=== PATIENT | female | born 1980 | race Caucasian/White ===

== ENCOUNTER 2020-04-07 10:08 | Outpatient (REF) | payer OTHER, SELFPAY ==
[2020-04-07 10:26] LABS: COVID-19 Test Positive (Negative)
== END 2020-04-07 10:09 | disposition home or self-care (01) ==
LOC: HO.LAB 10:08
PROVIDERS: Visit Provider Internal Medicine
DX: Z20.828 Contact with and (suspected) exposure to other viral communicable diseases (principal)
CPT/HCPCS: 87635

== ENCOUNTER 2020-04-14 13:37 | Outpatient (REF) | payer OTHER, SELFPAY ==
[2020-04-14 13:46] LABS: COVID-19 Test Positive (Negative)
== END 2020-04-14 13:38 | disposition home or self-care (01) ==
LOC: HO.LAB 13:37
PROVIDERS: Visit Provider Internal Medicine
DX: Z20.828 Contact with and (suspected) exposure to other viral communicable diseases (principal)
CPT/HCPCS: 87635

== ENCOUNTER → 2021-01-25 13:48 | Outpatient (BNVA) | payer OTHER, SELFPAY | PROVIDERS: Referring Provider Internal Medicine; Visit Provider Advanced Practice Midwife ==

== ENCOUNTER 2021-03-21 08:20 | Outpatient (REF) | payer OTHER, SELFPAY ==
--- NOTE | ~2021-03-21 | MM_ITS ---
EXAMINATION: MM SCREENING DIGITAL BREAST TOMOSYNTHESIS, BILATERAL CLINICAL INFORMATION: Screening. Asymptomatic. The lifetime risk of breast cancer based on the Tyrer-Cuzick Model is 13%. COMPARISON: Mammography: 02/11/2020 (baseline) TECHNIQUE: Digital breast tomosynthesis is performed in both the craniocaudal and mediolateral oblique views along with computer-aided detection (CAD). Synthesized 2D images are generated from the tomosynthesis. Additional exaggerated left CC view is provided. FINDINGS: There are scattered areas of fibroglandular density (ACR BI-RADS breast composition Category b). Parenchymal pattern is similar to initial baseline exam. There is no interval significant mass or architectural abnormality or developing density. No abnormal calcifications. The axilla and skin contours are unremarkable. MM/MM tomosynthesis screening BI IMPRESSION: No significant changes from initial baseline exam. ASSESSMENT: BI-RADS 1: Negative RECOMMENDATION: Routine annual mammography screening. This patient's information was entered into a reminder system with a target due date for their next mammogram.
== END 2021-03-21 08:21 | disposition home or self-care (01) ==
LOC: HO.MAMMO 08:20
PROVIDERS: Visit Provider Advanced Practice Midwife
DX: Z12.31 Encounter for screening mammogram for malignant neoplasm of breast (principal)
CPT/HCPCS: 77063; 77067

== ENCOUNTER 2021-07-11 07:15 | Outpatient (REF) | payer OTHER, SELFPAY ==
[2021-07-11 09:26] LABS: MANUAL DIFF FLAG NO
[2021-07-11 09:59] LABS: Basophils Percent Auto 0.4 % (0-2); Eosinophils Absolute Auto 0.1 X10*3/uL (0.0-0.4); Hematocrit 39.4 % (37.0-47.0); Hemoglobin 13.2 g/dl (12.0-16.0); Imm Gran Abs Auto 0.02 X10*3/uL (0.00-0.03); Imm Gran Pct Auto 0.3 % (0.0-0.4); Lymphocytes Absolute Auto 2.6 X10*3/uL (1.2-4.9); Lymphocytes Percent Auto 32.7 % (20-40); Mean Corpuscular HGB Conc 33.5 g/dl (31.0-35.0); Mean Corpuscular Volume 89.5 fL (80.0-98.0); Mean Platelet Volume 12.7 fL (9.4-12.3); Monocytes Absolute Auto 0.6 X10*3/uL (0.1-1.2); Monocytes Percent Auto 7.2 % (2-11); Neutrophils Absolute Auto 4.7 x10*3/uL (2.0-8.3); Neutrophils Percent Auto 58.4 % (45-73); Platelet Count 191 X10*3/uL (160-400); Red Cell Distribution Width 11.5 % (11.0-16.0)
[2021-07-11 10:34] LABS: Alanine Aminotransferase 12 U/L (0-31); Albumin Level 4.4 g/dL (3.5-5.0); Alkaline Phosphatase 63 U/L (39-117); Anion Gap 11 (12-20); Aspartate Amino Transferase 13 U/L (5-31); Bilirubin Total 0.4 mg/dL (0.0-1.0); Blood Urea Nitrogen 12 mg/dL (9-16); Calcium 9.8 mg/dL (8.4-10.2); Carbon Dioxide 28 mmol/L (22-29); Chloride 105 mmol/L (96-108); Cholesterol 235 mg/dL; Estimated Glomerular Filt Rate > 60; Glucose Random 84 mg/dL (60-115); HDL Cholesterol 63 mg/dL; LDL Cholesterol Calculated 143 mg/dl; Potassium 4.5 mmol/L (3.3-5.1); Sodium 139 mmol/L (135-145); Total Protein 7.5 g/dL (6.5-8.0); Triglycerides 145 mg/dL
[2021-07-11 10:59] LABS: Thyroid Stimulating Hormone 0.73 uIU/mL (0.32-4.0)
== END 2021-07-11 07:16 | disposition home or self-care (01) ==
LOC: HO.LAB 07:15
PROVIDERS: Visit Provider Physician Assistant
DX: Z00.00 Encounter for general adult medical examination without abnormal findings (principal)
CPT/HCPCS: 36415; 80053; 80061; 84443; 85025

== ENCOUNTER → 2021-07-13 13:12 | Outpatient (BNVA) | payer OTHER, SELFPAY | PROVIDERS: PCP Physician Assistant; Referring Provider Physician Assistant; Visit Provider Internal Medicine | DX: R00.2 Palpitations (principal); U09.9 Post COVID-19 condition, unspecified | CPT/HCPCS: 93005 ==

== ENCOUNTER → 2021-08-31 07:30 | Outpatient (REF) | payer OTHER, SELFPAY ==
--- NOTE | 2021-08-31 07:35 | HM_ITS ---
conclusion: 1. Patient was monitored for total period of 6 days and 23 hours 2. Baseline was normal sinus rhythm with average heart of 77 beats per minute 3. No significant pauses or bradycardia 4. Two episodes of supraventricular ectopy run, longest 13 beats 5. Very rare PACs and PVCs 6. 2 of the patient reported event correlated with PVCs MTDD
--- NOTE | 2021-08-31 07:35 | CA_ITS ---
Transthoracic Echocardiogram Patient (Last, First, Middle): Sarah Brown, Gender: Female Date of : 1980 Age: 40 Procedure Date: 08/31/2021 Procedure Type: Transthoracic Echocardiogram Location: OP Height: 170.18 cm Weight: 90.72 kg BSA: 2.02 m2 Heart Rate: bpm BP: 120 / 70 mmHg Racecar Driver: DHARA Referring MD: Julio Madera MD Transformer Assembler: Stephan Torres MD Symptoms: R00.2 - Palpitations Study Quality: Good ECG Rhythm: Sinus Conclusions: - Normal study Findings Left Ventricle Normal left ventricular size, thickness, and systolic function. The visually estimated ejection fraction is between 65-70%. Diastolic function is normal for age. Measured global longitudinal endocardial strain is -23.8%, which is normal Right Ventricle Normal right ventricular cavity size and systolic function. Atria Both atria are normal in size. Interatrial shunt cannot be excluded. Aortic Valve Normal aortic valve structure and function. There is no aortic valve stenosis. There is no aortic valve regurgitation. Mitral Valve Normal mitral valve structure and function. There is trace mitral valve regurgitation. There is no mitral valve stenosis. Pulmonic Valve The pulmonic valve is likely normal. Tricuspid Valve Normal tricuspid valve structure. There is trace tricuspid valve regurgitation. The right ventricular systolic pressure is normal. The right ventricular systolic pressure is 26 mmHg. Normal right atrial pressure. There is no evidence of pulmonary hypertension. Great Vessels All visible segments of the aorta are normal in size. The pulmonary artery was not well visualized. Venous The inferior vena cava is normal in size and collapses greater than 50% with inspiration. Pericardium/Pleural There is no evidence of pericardial effusion. Prior Study Comparison No prior study available for comparison. Measurements 2D Linear Measurements IVSd: 0.91 0.6-0.9/0.6-1.0 cm LVIDd: 4.67 3.9-5.3/4.2-5.9 cm LVIDd Index: 2.31 2.4-3.2/2.2-3.1 cm/m2 LVIDs: 2.79 2.0-3.6 cm LVPWd: 0.98 0.7-1.1 cm LA Diam: 3.80 2.7-3.8/3.0-4.0 cm LAIDs Index: 1.88 1.5-2.3 cm/m2 LV Mass: 186.46 67-162/88-224 g LV Mass Index: 92.31 43-95/49-115 g/m2 LVOT Diam: 2.00 3.0+(-)1.3 cm 2D Systolic Function EF 4C: 62.00 >55% EF 2C: 65.80 >55% EF BiP: 64.60 >55% Mitral Valve MV Pk E: 0.90 MV PK A: 0.38 MV Decel Time: 220.00 E/A: 2.40 E'Lateral: 12.00 E'Medial: 10.10 E/E' Med: 8.90 E/E' Lat: 7.50 PHT: 65.00 MVA PHT: 3.38 Decel Bossier: 4.06 Aortic Valve AoV Pk Cliff: 1.55 AoV Pk Grad: 10.00 LVOT LVOT Pk Cliff: 1.19 LVOT Mn Cliff: 0.76 LVOT VTI: 0.28 LVOT Pk Grad: 6.00 LVOT Mn Grad: 3.00 LVOT Diam: 2.00 LVOT Area: 3.14 Diastolic Function MV Pk E: 0.90 MV Pk A: 0.38 E/A: 2.40 E'Medial: 10.10 E/E' Med: 8.90 E' Laterial: 12.00 E/E' Lat: 7.50 Right Ventricle TAPSE (mm): 2.13 TVS' Cliff: 16.30 Tricuspid Valve TR Pk Cliff: 2.39 TR Pk Grad: 23.00 RA Press: 3.00 RVSP: 26.00 Great Vessels Aorta Sinus of Valsalva: 2.79 2.0-3.5 cm Ao Asc: 2.60 2.1-3.4 cm Updated in Other Vendor System with Status of Final Stephan Torres MD electronically signed on 08/31/2021 9:50:33 PM with status of Final
== END ==
LOC: HO.CARD 07:30
PROVIDERS: Visit Provider Internal Medicine
DX: R00.2 Palpitations (principal); U09.9 Post COVID-19 condition, unspecified
CPT/HCPCS: 93242; 93306; 93356

== ENCOUNTER 2021-11-03 06:50 | Emergency (ER) | payer OTHER, SELFPAY ==
--- NOTE | ~2021-11-03 | US_ITS ---
EXAMINATION: US VENOUS ULTRASOUND WITH DOPPLER LOWER EXTREMITY, BILATERAL CLINICAL INFORMATION: Pain and swelling status post recent trip. COMPARISON: None TECHNIQUE: Ultrasound of the deep veins is performed from the hip to the calf with compression sonography and color and pulse Doppler assessment. Spectral analysis with color-flow imaging is performed. FINDINGS: RIGHT: There is normal venous compression and respiratory variation and augmented flow. The visualized common femoral vein, superficial femoral vein, profunda femoral vein, popliteal vein, and the trifurcation region shows no evidence of deep venous thrombosis. No right popliteal cyst. LEFT: There is normal venous compression and respiratory variation and augmented flow. The visualized common femoral vein, superficial femoral vein, profunda femoral vein, popliteal vein, and the trifurcation region shows no evidence of deep venous thrombosis. No left popliteal cyst. If the patient's symptoms persist, followup ultrasound in 5 days 7 days might be of value to exclude proximal propagation from a non-visualized calf vein. US/US venous duplex LE BI IMPRESSION: No DVT demonstrated in the bilateral lower extremity.
[2021-11-03 07:00] VITALS: BP 157/75; PULSE 100; RESP 20; O2SAT 100; BMI 30.4
--- NOTE | 2021-11-03 07:04 | ECG_ITS ---
Test Reason : leg swelling Blood Pressure : / mmHG Vent. Rate : 083 BPM Atrial Rate : 083 BPM P-R Int : 136 ms QRS Dur : 076 ms QT Int : 370 ms P-R-T Axes : 055 061 054 degrees QTc Int : 434 ms Normal sinus rhythm with sinus arrhythmia Minimal voltage criteria for LVH, may be normal variant ( Sokolow-Quan ) Nonspecific ST abnormality Abnormal ECG No previous ECGs available Referred By: Evangelina Levine Electronically Signed By:CHERRY WASHINGTON MD
--- NOTE | 2021-11-03 07:14 | ED.EXTPRO ---
HPI - Extremity Problem General Chief complaint: Extremity Problem Stated complaint: leg r swelling Time Seen by Provider: 11/03/21 07:04 Source: patient Mode of arrival: ambulatory Limitations: no limitations History of Present Illness HPI Narrative: just traveled from [place] is on OCPs c/o leg swelling and calf pain, felt they were red and itchy too. Also notes that she felt somewhat short of breath as well. MD Complaint: extremity swelling Onset (ago): day(s) (yesterday ) Pain Consistency: constant Location: left, right and lower extremity Quality: aching and dull Radiation: none Relieving factors: elevation Exacerbating factors: walking Associated symptoms: shortness of breath Context: recent travel and other (OCPs) Related Data Previous Rx's Medication Instructions Recorded norethindrone 1 mg-ethinyl 1 tab PO DAILY 28 Days #28 tab 01/25/21 estradiol 35 mcg tablet (Nortrel) prednisone 20 mg tablet 40 mg PO DAILY 5 Days #10 tab 11/03/21 Allergies Allergy/AdvReac Type Severity Reaction Status Date / Time No Known Allergies Allergy Unverified 03/10/20 17:00 [No Known Allergies*] Review of Systems Review of Systems: Constitutional : No Fever, No Chills ENT/Mouth : No sore throat, No Rhinorrhea, No Swallowing Difficulty Eyes: No Eye Pain, No Swelling, No Redness Cardiovascular : No Chest Pain, positive SOB, No Orthopnea, positive Edema Respiratory : No Cough, No Sputum, No Wheezing, positive dyspnea Gastrointestinal : No Nausea, No Vomiting, No Diarrhea, No abdominal Pain, No Hematochezia, No Melena Genitourinary : No Dysuria, No Urinary Frequency, No Hematuria Musculoskeletal : No joint pain, No Myalgias Skin : No Skin Lesions, pos rash Neuro : No Weakness, No Numbness, No Dizziness, No Headache Psych : No Anxiety/Panic, No Depression Heme/Lymph: No Bruising, No Lymphadenopathy Endocrine : No Polyuria, No Polydipsia All other systems reviewed and are negative [facility] Past Medical History Attestation statement: The following information was validated with the patient. Medical History Anal fissure Renal stones Surgical History History of section Family History Family History (Updated 07/13/21 @ 13:36 by ZORAN Colón) Father No problems noted. 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 Oriented X3. No acute distress. Eyes: Pupils equal, round and reactive to light. ENT: Pharynx normal. Neck: Normal inspection. Neck supple. CVS: Normal heart rate and rhythm. Pulses normal. Respiratory: No respiratory distress. Breath sounds normal. Abdomen: Soft and non-tender. Skin: Skin warm and dry. Normal skin color. small hyperpigmented non warmth prickly red areas on bilateral LE non confluent Extremities: non pitting lower extremity edema R> L . no ramya's sign Neuro: Oriented X 3. No motor deficit. No sensory deficit. Course Course Course Narrative: negative workup at this time stable for DC given intense itching that occurred could have been allergic reaction as well - will Rx prednisone in case this returns patient will get compression stockings too MDM - Extremity (Nontraumatic) MDM Narrative Medical decision making narrative: 40 yo female on OCPs here with c/o recent travel now feels her legs are swollen and were itchy and red. She also feels somewhat short of breath. At this time will obtain basic labs, EKG, DVT studies. Suspect initial VS likely due to reaction of anxiety. Lab Data Result diagrams: 11/03/21 07:32 11/03/21 07:32 Labs: Lab Results 11/03/21 11/03/21 11/03/21 Range/Units 07:32 07:32 07:32 WBC 6.8 (4.8-10.8) X10*3/uL RBC 4.25 (4.20-5.50) X10*6/uL Hgb 12.7 (12.0-16.0) g/dl Hct 37.4 (37.0-47.0) % MCV 88.0 (80.0-98.0) fL MCH 29.9 (27.0-33.0) pg MCHC 34.0 (31.0-35.0) g/dl RDW 12.1 (11.0-16.0) % Plt Count 161 (160-400) X10*3/uL MPV 12.0 (9.4-12.3) fL Immature Gran % (Auto) 0.1 (0.0-0.4) % Neut % (Auto) 72.2 (45-73) % Lymph % (Auto) 20.1 (20-40) % Garrard % (Auto) 6.6 (2-11) % Eos % (Auto) 0.7 (0-4) % Baso % (Auto) 0.3 (0-2) % Lymph # (Auto) 1.4 (1.2-4.9) X10*3/uL Garrard # (Auto) 0.5 (0.1-1.2) X10*3/uL Eos # (Auto) 0.1 (0.0-0.4) X10*3/uL Baso # (Auto) 0.0 (0.0-0.2) X10*3/uL Abs Immat Gran (auto) 0.01 (0.00-0.03) X10*3/uL Absolute Neuts (auto) 4.9 (2.0-8.3) x10*3/uL Absolute Nucleated RBC 0.000 (0.0-0.012) X10*3/uL Nucleated RBC % (auto) 0.0 (0.0-0.2) /100WBC PT (9.9-13.0) SEC INR (0.9-1.1) Sodium 137 (135-145) mmol/L Potassium 4.0 (3.3-5.1) mmol/L Chloride 106 (96-108) mmol/L Carbon Dioxide 24 (22-29) mmol/L Anion Gap 11 L (12-20) BUN 9 (9-16) mg/dL Creatinine 0.78 (0.5-1.4) mg/dL Estim Creat Clear Calc 111.8 Estimated GFR > 60 Random Glucose 102 (60-115) mg/dL Calcium 9.4 (8.4-10.2) mg/dL Total Bilirubin 0.4 (0.0-1.0) mg/dL Direct Bilirubin 0.2 (0.0-0.5) mg/dL AST 14 (5-31) U/L ALT 14 (0-31) U/L Alkaline Phosphatase 67 (39-117) U/L Troponin I High Sens < 3.5 (<3.5-17.0) ng/L B-Natriuretic Peptide 57 (<100) pg/mL Total Protein 7.1 (6.5-8.0) g/dL Albumin 4.0 (3.5-5.0) g/dL 11/03/21 Range/Units 07:32 WBC (4.8-10.8) X10*3/uL RBC (4.20-5.50) X10*6/uL Hgb (12.0-16.0) g/dl Hct (37.0-47.0) % MCV (80.0-98.0) fL MCH (27.0-33.0) pg MCHC (31.0-35.0) g/dl RDW (11.0-16.0) % Plt Count (160-400) X10*3/uL MPV (9.4-12.3) fL Immature Gran % (Auto) (0.0-0.4) % Neut % (Auto) (45-73) % Lymph % (Auto) (20-40) % Garrard % (Auto) (2-11) % Eos % (Auto) (0-4) % Baso % (Auto) (0-2) % Lymph # (Auto) (1.2-4.9) X10*3/uL Garrard # (Auto) (0.1-1.2) X10*3/uL Eos # (Auto) (0.0-0.4) X10*3/uL Baso # (Auto) (0.0-0.2) X10*3/uL Abs Immat Gran (auto) (0.00-0.03) X10*3/uL Absolute Neuts (auto) (2.0-8.3) x10*3/uL Absolute Nucleated RBC (0.0-0.012) X10*3/uL Nucleated RBC % (auto) (0.0-0.2) /100WBC PT 11.5 (9.9-13.0) SEC INR 1.0 (0.9-1.1) Sodium (135-145) mmol/L Potassium (3.3-5.1) mmol/L Chloride (96-108) mmol/L Carbon Dioxide (22-29) mmol/L Anion Gap (12-20) BUN (9-16) mg/dL Creatinine (0.5-1.4) mg/dL Estim Creat Clear Calc Estimated GFR Random Glucose (60-115) mg/dL Calcium (8.4-10.2) mg/dL Total Bilirubin (0.0-1.0) mg/dL Direct Bilirubin (0.0-0.5) mg/dL AST (5-31) U/L ALT (0-31) U/L Alkaline Phosphatase (39-117) U/L Troponin I High Sens (<3.5-17.0) ng/L B-Natriuretic Peptide (<100) pg/mL Total Protein (6.5-8.0) g/dL Albumin (3.5-5.0) g/dL ECG Data Attestation EKG: I personally reviewed and interpreted this ECG as follows: ECG interpretation date: 11/03/21 ECG interpretation time: 07:57 Interpretation: Rate: 83 Rhythm: NSR Warren: normal LVH Normal P waves. Normal TALI. Normal QRS complex. ST T wave : normal no TAMMY qTC: normal prior studies: no acute ischemia The study has been interpreted contemporaneously by me. Discharge Plan Discharge Clinical Impression: Lower extremity edema Patient Disposition: Home, Self-Care Instructions: Leg Edema (ED) Additional Instructions: return to ED for any worsening symptoms or concerns only take prednisone if the redness/itching returns compression stockings for 3 days Prescriptions: New prednisone 20 mg tablet 40 mg PO DAILY 5 Days Qty: 10 0RF No Action Nortrel () 1-35 mg-mcg tablet 1 tab PO DAILY 28 Days Qty: 28 11RF Stand Alone Forms: Work/School Release
[2021-11-03 07:36] LABS: MANUAL DIFF FLAG NO
[2021-11-03 07:39] LABS: Basophils Percent Auto 0.3 % (0-2); Eosinophils Absolute Auto 0.1 X10*3/uL (0.0-0.4); Eosinophils Percent Auto 0.7 % (0-4); Hematocrit 37.4 % (37.0-47.0); Hemoglobin 12.7 g/dl (12.0-16.0); Imm Gran Abs Auto 0.01 X10*3/uL (0.00-0.03); Imm Gran Pct Auto 0.1 % (0.0-0.4); Lymphocytes Absolute Auto 1.4 X10*3/uL (1.2-4.9); Lymphocytes Percent Auto 20.1 % (20-40); Mean Corpuscular Hemoglobin 29.9 pg (27.0-33.0); Monocytes Absolute Auto 0.5 X10*3/uL (0.1-1.2); Monocytes Percent Auto 6.6 % (2-11); Neutrophils Absolute Auto 4.9 x10*3/uL (2.0-8.3); Neutrophils Percent Auto 72.2 % (45-73); Platelet Count 161 X10*3/uL (160-400); Red Blood Count 4.25 X10*6/uL (4.20-5.50); Red Cell Distribution Width 12.1 % (11.0-16.0); White Blood Count 6.8 X10*3/uL (4.8-10.8)
[2021-11-03 07:43] LABS: Prothrombin Time 11.5 SEC (9.9-13.0)
[2021-11-03 07:52] LABS: Alanine Aminotransferase 14 U/L (0-31); Alkaline Phosphatase 67 U/L (39-117); Anion Gap 11 (12-20); Aspartate Amino Transferase 14 U/L (5-31); Bilirubin Direct 0.2 mg/dL (0.0-0.5); Bilirubin Total 0.4 mg/dL (0.0-1.0); Blood Urea Nitrogen 9 mg/dL (9-16); Calcium 9.4 mg/dL (8.4-10.2); Carbon Dioxide 24 mmol/L (22-29); Chloride 106 mmol/L (96-108); Creatinine Clr Calc Pharmacy 111.8; Estimated Glomerular Filt Rate > 60; Glucose Random 102 mg/dL (60-115); Sodium 137 mmol/L (135-145); Total Protein 7.1 g/dL (6.5-8.0)
[2021-11-03 07:57] LABS: B Type Natriuretic Peptide 57 pg/mL (<100); Troponin-I High Sensitivity < 3.5 ng/L (<3.5-17.0)
== END 2021-11-03 09:54 | disposition home or self-care (01) ==
PROVIDERS: Emergency Provider Emergency Medicine; PCP Physician Assistant
DX: R60.0 Localized edema (principal); M79.605 Pain in left leg; M79.604 Pain in right leg; R06.02 Shortness of breath
CPT/HCPCS: 36415; 80048; 80076; 83880; 84484; 85025; 85610; 93005; 93970; 99282; 99283; 99284

== ENCOUNTER 2022-01-29 09:40 | Outpatient (REF) | payer OTHER, SELFPAY ==
[2022-02-01 03:36] LABS: HPV mRNA E6/E7 rflx Not Detected (Not Detected)
== END 2022-01-29 09:41 | disposition home or self-care (01) ==
LOC: HO.LAB 09:40
PROVIDERS: Visit Provider Advanced Practice Midwife
DX: Z01.419 Encounter for gynecological examination (general) (routine) without abnormal findings (principal); Z11.51 Encounter for screening for human papillomavirus (HPV)
CPT/HCPCS: 87624; 88142

== ENCOUNTER 2022-03-22 10:01 | Outpatient (REF) | payer OTHER, SELFPAY ==
--- NOTE | ~2022-03-22 | MM_ITS ---
EXAMINATION: MM SCREENING DIGITAL BREAST TOMOSYNTHESIS, BILATERAL CLINICAL INFORMATION: Screening. Asymptomatic. The lifetime risk of breast cancer based on the Tyrer-Cuzick Model is 13%. COMPARISON: Mammography: 03/13/2021, 02/11/2020 (baseline) TECHNIQUE: Digital breast tomosynthesis is performed in both the craniocaudal and mediolateral oblique views along with computer-aided detection (CAD). Synthesized 2D images are generated from the tomosynthesis. FINDINGS: There are scattered areas of fibroglandular density (ACR BI-RADS breast composition Category b). The right CC view has smooth oval asymmetric density mid central inner quadrant under 9 x 5 mm, more conspicuous. This resides just inferior to posterior nipple line on the tomographic slices. Patient will be recalled for additional imaging. The remainder of the bilateral breasts show no developing density or interval mass or architectural abnormality or abnormal calcifications. The skin contours are smooth. MM/MM tomosynthesis screening BI IMPRESSION: Right: -Smooth oval asymmetric density mid central inner right breast under 1 cm. Left: -No mammographic evidence of malignancy. ASSESSMENT: BI-RADS 0: Incomplete - Need Additional Imaging Evaluation RECOMMENDATION: 1. Additional views of the right breast (rolled CC x2, LM). 2. Targeted ultrasound if warranted after review of the additional views. 3. Radiology department staff will contact the patient for additional imaging. This patient's information was entered into a reminder system with a target due date for their next mammogram.
== END 2022-03-22 10:02 | disposition home or self-care (01) ==
LOC: HO.MAMMO 10:01
PROVIDERS: Visit Provider Advanced Practice Midwife
DX: Z12.31 Encounter for screening mammogram for malignant neoplasm of breast (principal)
CPT/HCPCS: 77063; 77067

== ENCOUNTER 2022-03-29 14:47 | Outpatient (REF) | payer OTHER, SELFPAY ==
--- NOTE | ~2022-03-29 | US_ITS ---
EXAMINATION: MM DIAGNOSTIC DIGITAL MAMMOGRAPHY, RIGHT US DIAGNOSTIC ULTRASOUND BREAST, RIGHT CLINICAL INFORMATION: Recall from screening for smooth oval asymmetric density mid central inner right breast. The lifetime risk of breast cancer based on the Tyrer-Cuzick Model is 13%. COMPARISON: Mammography: 03/22/2022, 03/21/2021, 02/11/2020 (baseline). TECHNIQUE: Digital mammography is performed in the following views: Rolled CC x2, ML. Ultrasound right breast is targeted to the central inner breast using grayscale imaging and color Doppler without and with harmonics. FINDINGS: There are scattered areas of fibroglandular density (ACR BI-RADS breast composition Category b). The additional rolled views suggesting subtle equal attenuation oval asymmetric density, not seen with certainty on ML projection. No architectural abnormality. Ultrasound demonstrates 2 cysts central 3:00 position approximately 5 cm from nipple, the larger corresponding to the recent mammography measuring 8 x 4 mm, anechoic, with increased through-transmission of sound and no color flow. There is an adjacent satellite cyst measuring 5 x 3 mm. No solid mass or architectural abnormality. Results are discussed with the patient at time of visit. US/US breast RT limited IMPRESSION: -2 oval cysts central 3:00 right breast corresponding to recent screening mammography. ASSESSMENT: BI-RADS 2: Benign RECOMMENDATION: Routine annual mammography screening. This patient's information was entered into a reminder system with a target due date for their next mammogram.
== END 2022-03-29 14:48 | disposition home or self-care (01) ==
LOC: HO.MAMMO 14:47
PROVIDERS: Visit Provider Advanced Practice Midwife
DX: N64.89 Other specified disorders of breast (principal); N60.01 Solitary cyst of right breast
CPT/HCPCS: 76642; 77065

== ENCOUNTER 2022-09-10 08:10 | Outpatient (REF) | payer OTHER, SELFPAY ==
[2022-09-10 09:21] LABS: Hematocrit 39.6 % (37.0-47.0); Hemoglobin 13.4 g/dl (12.0-16.0); Mean Corpuscular HGB Conc 33.8 g/dl (31.0-35.0); Mean Corpuscular Hemoglobin 30.3 pg (27.0-33.0); Mean Corpuscular Volume 89.6 fL (80.0-98.0); Mean Platelet Volume 12.3 fL (9.4-12.3); Platelet Count 196 X10*3/uL (160-400); Red Blood Count 4.42 X10*6/uL (4.20-5.50); Red Cell Distribution Width 11.8 % (11.0-16.0)
[2022-09-10 10:37] LABS: Alanine Aminotransferase 13 U/L (0-31); Albumin Level 4.3 g/dL (3.5-5.0); Alkaline Phosphatase 72 U/L (39-117); Anion Gap 15 (12-20); Aspartate Amino Transferase 16 U/L (5-31); Bilirubin Total 0.6 mg/dL (0.0-1.0); Calcium 9.5 mg/dL (8.4-10.2); Carbon Dioxide 26 mmol/L (22-29); Chloride 103 mmol/L (96-108); Cholesterol 259 mg/dL; Estimated Glomerular Filt Rate > 60; Glucose Fasting 77 mg/dL (60-99); HDL Cholesterol 66 mg/dL; LDL Cholesterol Calculated 172 mg/dl; Potassium 4.3 mmol/L (3.3-5.1); Sodium 140 mmol/L (135-145); TSH reflex Free T4 0.77 uIU/mL (0.32-4.0); Total Protein 7.2 g/dL (6.5-8.0); Triglycerides 105 mg/dL
[2022-09-10 12:12] LABS: Blood Urea Nitrogen 11 mg/dL (9-16)
== END 2022-09-10 08:11 | disposition home or self-care (01) ==
LOC: HO.LAB 08:10
PROVIDERS: PCP Hospitalist; Visit Provider Hospitalist
DX: Z00.00 Encounter for general adult medical examination without abnormal findings (principal); E66.9 Obesity, unspecified; Z86.2 Personal history of diseases of the blood and blood-forming organs and certain disorders involving the immune mechanism
CPT/HCPCS: 36415; 80053; 80061; 84443; 85027

== ENCOUNTER 2022-09-11 07:24 | Outpatient (REF) | payer OTHER, SELFPAY ==
[2022-09-11 07:57] LABS: MANUAL DIFF FLAG NO
[2022-09-11 07:59] LABS: Basophils Absolute Auto 0.1 X10*3/uL (0.0-0.2); Basophils Percent Auto 0.3 % (0-2); Eosinophils Absolute Auto 0.1 X10*3/uL (0.0-0.4); Eosinophils Percent Auto 0.5 % (0-4); Hematocrit 38.9 % (37.0-47.0); Hemoglobin 13.1 g/dl (12.0-16.0); Imm Gran Abs Auto 0.11 X10*3/uL (0.00-0.03); Imm Gran Pct Auto 0.6 % (0.0-0.4); Lymphocytes Absolute Auto 1.9 X10*3/uL (1.2-4.9); Lymphocytes Percent Auto 10.3 % (20-40); Mean Corpuscular HGB Conc 33.7 g/dl (31.0-35.0); Mean Corpuscular Hemoglobin 30.1 pg (27.0-33.0); Mean Corpuscular Volume 89.4 fL (80.0-98.0); Mean Platelet Volume 11.8 fL (9.4-12.3); Monocytes Absolute Auto 0.7 X10*3/uL (0.1-1.2); Neutrophils Absolute Auto 15.5 x10*3/uL (2.0-8.3); Neutrophils Percent Auto 84.3 % (45-73); Platelet Count 189 X10*3/uL (160-400); Red Blood Count 4.35 X10*6/uL (4.20-5.50); Red Cell Distribution Width 11.9 % (11.0-16.0); White Blood Count 18.4 X10*3/uL (4.8-10.8)
== END 2022-09-11 07:25 | disposition home or self-care (01) ==
LOC: HO.LAB 07:24
PROVIDERS: PCP Hospitalist; Visit Provider Hospitalist
DX: D72.829 Elevated white blood cell count, unspecified (principal)
CPT/HCPCS: 36415; 85025

== ENCOUNTER 2022-09-11 09:16 | Emergency (ER) | payer OTHER, SELFPAY ==
--- NOTE | ~2022-09-11 | XR_ITS ---
EXAMINATION: XR CHEST CLINICAL INFORMATION: Fever COMPARISON: None available. TECHNIQUE: 2 views of the chest were obtained. FINDINGS: No significant abnormality is noted involving the heart, lungs, mediastinum, bony thorax or soft tissues. XR/XR chest 2V IMPRESSION: No acute cardiopulmonary process.
[2022-09-11 09:24] VITALS: BP 148/82; PULSE 81; RESP 16; TEMP 36.3; O2SAT 98; BMI 30.4
--- NOTE | 2022-09-11 10:09 | ED_ITS ---
HPI - General Adult General Chief complaint: General Medical Stated complaint: Abnormal Labs Time Seen by Provider: 09/11/22 09:19 Source: patient and RN notes reviewed Mode of arrival: ambulatory Limitations: no limitations History of Present Illness HPI narrative: This is a 41-year-old female who presents to the emergency department with complaints of intermittent nausea, intermittent shortness of breath, fatigue, low back pain and lower abdominal pain for the last week. She reports that she has just been feeling unwell over the last week. Patient was seen by her primary care physician yesterday for routine blood work for her yearly physical and had a WBC of 22,000. She had a repeat blood draw yesterday, and was told this morning that it is still elevated at 18,000. She reports that she woke up in the middle of the night drenched in sweat. She took an at home COVID test which was negative. She reports that her daughter is sick with a sore throat at home. She denies any known tick bites, she does not have dogs at home. She denies any fevers, chills, diarrhea, constipation, sore throat, runny nose, cough, headache, ear pain. Denies chest pain, palpitations. Denies urinary symptoms. MD complaint: Fatigue, abdominal pain Onset (ago): week(s) Radiation: abdomen Severity: moderate Quality: aching Pain Consistency: constant Relieving factors: none Exacerbating factors: none Associated symptoms: nausea/vomiting and shortness of breath Treatments prior to arrival: none Related Data Previous Rx's Medication Instructions Recorded norethindrone 1 mg-ethinyl 1 tab PO DAILY 84 days #168 tabs 01/29/22 estradiol 35 mcg tablet (Nortrel) Allergies Allergy/AdvReac Type Severity Reaction Status Date / Time No Known Allergies Allergy Verified 09/11/22 09:24 [No Known Allergies*] Review of Systems Review of Systems: Yes all other systems are reviewed and are negative Constitutional: Constitutional: Reports no additional constitutional complaints, Denies body ache(s), Denies chills, Reports fatigue, Denies fever(s), Denies headache(s), Reports lethargy, Reports night sweats and Denies weakness Eyes: Eyes: Reports no additional eye complaints and Denies change in vision ENT: Reports system reviewed and no additional complaints, except as documented, Denies dizziness, Denies headache(s), Denies nasal congestion, Denies nasal discharge and Denies neck pain Cardiovascular: Cardiovascular: Reports no additional cardiovascular complaints, Denies chest pain, Denies leg edema and Reports dyspnea Respiratory: Respiratory: Reports no additional respiratory complaints, Denies cough and Reports dyspnea Gastrointestinal: Gastrointestinal: Reports no additional gastrointestinal complaints, Reports abdominal pain, Denies diarrhea, Reports nausea and Denies vomiting Genitourinary: Genitourinary: Reports no additional female genitourinary complaints and Denies urinary incontinence Musculoskeletal: Musculoskeletal: Reports no additional musculoskeletal complaints, Reports back pain, Denies arthralgias, Denies joint swelling, Denies neck pain, Denies numbness and Denies tingling Integumentary/Breasts: Skin/Breast: Reports system reviewed and no additional complaints, except as docu and Denies rash Neurologic: Reports system reviewed and no additional complaints, except as documented, Denies dizziness, Denies headache(s), Denies numbness, Denies tingling and Denies weakness Endocrine: Endocrine: Reports fatigue PMFSH Past Medical History Attestation statement: The following information was validated with the patient. Source: old records reviewed and nursing notes reviewed Medical History Anal fissure Renal stones Surgical History History of section Family History Family History Father No problems noted. 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 Current occupational exposures/hazards: Yes Sexual orientation: Straight/Heterosexual Gender identity: Female Physical Exam ED Vital Signs: Vital Signs - 24 hr 09/11/22 09:24 03/21/23 11:27 Temperature 97.4 F 98.4 F Pulse Rate 81 79 Respiratory Rate 16 18 Blood Pressure 148/82 H 123/62 Pulse Oximetry 98 97 Oxygen Delivery Method Room Air Room Air BMI result Body Mass Index 30.4 Const General: cooperative, healthy appearing, comfortable, no acute distress, alert, awake and Physically active Nutritional Appearance: average body habitus Orientation/consciousness: oriented to person, oriented to place and oriented to time Limitations: no limitations [facility] Head: Yes normal to inspection, Yes normocephalic and Yes atraumatic Ears: hearing grossly normal bilaterally, external ears normal, TM's normal bilaterally and TM normal on the right General nose exam: Normal external nose present, No nasal polyps present and No nasal discharge present Face and sinus: Yes normal facial exam, Yes sinuses nontender and Yes face symmetric Mouth: Normal oral and palatal mucosa present and moist mucous membranes Teeth and gingiva: dentition normal and gingiva normal Throat: Yes posterior oropharynx normal, Yes tonsils normal, Yes uvula midline, No peritonsillar mass, No uvular edema and No cobblestoning Eyes General: appearance normal, both eyes and all related structures Alignment and Position: alignment normal and position normal Periorbital: periorbital findings normal Eyelids: Yes eyelids normal Conjunctivae: conjunctivae normal Sclerae: sclerae normal Corneas: corneas normal Pupils: Equal, round and reactive pupils present EOM: EOMs intact bilaterally Neck Neck: Yes normal visual inspection, Yes full ROM, Yes no lymphadenopathy, No no meningeal signs and Yes trachea midline Lymphatic: no lymphadenopathy noted Chest Chest palpation & inspection: normal inspection of the chest and normal palpation of entire chest wall Breast/axilla palpation: axillary lymphadenopathy Resp Effort & Inspection: normal respiratory effort, able to speak in complete sentences, no audible wheezes and no cough Auscultation: clear to auscultation bilaterally, no rales, no rhonchi and no wheezes Cardio Rate: regular rate Rhythm: regular rhythm Heart sounds: S1 normal heart sound present, S2 normal heart sound present, no g allops, no murmurs and no rubs GI Other: Abdomen is soft, nontender, with normoactive bowel sounds, Inspection: Yes normal to inspection and No distended Palpation (GI): Soft to palpation, nontender, no guarding, not rigid, no hepatosplenomegaly and No Ascites present Auscultation: normal bowel sounds General: Yes no CVA tenderness Back/Spine/Pelvis Back: no CVA tenderness, No ecchymosis and No back tenderness Thoracic/Lumbar Spine: thoracic and lumbar spine normal to inspection Skin General skin exam: no rashes or lesions noted Wounds: no wounds Neuro General: oriented to person, oriented to place, oriented to time and No no meningeal signs Cranial nerves: Yes Equal, round and reactive pupils present Extrem General: Yes normal to inspection, Yes full ROM, Yes capillary refill normal, Yes no pedal edema and Yes no calf tenderness Psych Appearance: grossly normal Mental Status: mental status grossly normal Speech and movement: Normal speech and movement present Affect: normal affect Attitude: cooperative Thought process: Normal thought process present Thought content: Normal thought content present Insight: Good insight present (Psych) Judgement: Good judgement present (Psych) Course Reevaluation(s) Reevaluation #1: Leukocytosis at 17.7 with slight left shift which is downtrending. UA with 3+ blood, patient report that she has her period at this time. Viral panel and tick panels still pending. Additional w/u unremarkable. Patient non toxic, afebrile here, appears well. Recommend follow w/ PCP outpatient. Reviewed worrisome signs and symptoms of when to return to the emergency room. Comfortable plan for discharge home. Time: 12:04 Medical Decision Making Medical Decision Making [facility] Narrative: 41 yo F presents today with complaints of fatigue, back pain, low abdominal pain, nausea, 1 episode of night sweats, found to have an elevated WBC at 22k at PCP's office. She reported to her PCP office for routine physical lab work and incidentally found this. She reports that over the last week she has had multiple, vague complaints that are intermittent. LS are clear. Abdomen soft and nontender with no focal tenderness. No meningeal signs or lymphadenopathy. Overall non toxic appearing. VSS are stable. Labs, EKG, Chest x-ray, and UA ordered. Differential Diagnosis Differential Diagnoses: The differential diagnosis associated with the presentation includes UTI, Pneumonia, viral syndrome, tick-borne illness Low concern for bacteremia, meningitis Lab Data [facility] Lab Attestation statement: I reviewed the patient's lab results. 09/11/22 10:10 09/11/22 10:10 Labs: Lab Results 09/11/22 09/11/22 09/11/22 Range/Units 10:09 10:10 10:10 WBC 17.7 H (4.8-10.8) X10*3/uL RBC 4.19 L (4.20-5.50) X10*6/uL Hgb 12.5 (12.0-16.0) g/dl Hct 37.5 (37.0-47.0) % MCV 89.5 (80.0-98.0) fL MCH 29.8 (27.0-33.0) pg MCHC 33.3 (31.0-35.0) g/dl RDW 11.9 (11.0-16.0) % Plt Count 179 (160-400) X10*3/uL MPV 11.6 (9.4-12.3) fL Immature Gran % (Auto) 0.4 (0.0-0.4) % Neut % (Auto) 84.1 H (45-73) % Lymph % (Auto) 11.2 L (20-40) % [place] % (Auto) 3.8 (2-11) % Eos % (Auto) 0.3 (0-4) % Baso % (Auto) 0.2 (0-2) % Lymph # (Auto) 2.0 (1.2-4.9) X10*3/uL [place] # (Auto) 0.7 (0.1-1.2) X10*3/uL Eos # (Auto) 0.1 (0.0-0.4) X10*3/uL Baso # (Auto) 0.0 (0.0-0.2) X10*3/uL Abs Immat Gran (auto) 0.07 H (0.00-0.03) X10*3/uL Absolute Neuts (auto) 14.9 H (2.0-8.3) x10*3/uL Absolute Nucleated RBC 0.000 (0.0-0.012) X10*3/uL Nucleated RBC % (auto) 0.0 (0.0-0.2) /100WBC Sodium 139 (135-145) mmol/L Potassium 3.9 (3.3-5.1) mmol/L Chloride 107 (96-108) mmol/L Carbon Dioxide 24 (22-29) mmol/L Anion Gap 12 (12-20) BUN 8 L (9-16) mg/dL Creatinine 0.74 (0.5-1.4) mg/dL Estim Creat Clear Calc 116.6 Estimated GFR > 60 Random Glucose 87 (60-115) mg/dL Lactic Acid 0.7 (0.5-2.0) mmol/L Calcium 8.9 D (8.4-10.2) mg/dL Magnesium 2.0 (1.6-2.6) mg/dL Total Bilirubin 0.4 (0.0-1.0) mg/dL Direct Bilirubin < 0.2 (0.0-0.5) mg/dL AST 12 (5-31) U/L ALT 11 (0-31) U/L Alkaline Phosphatase 71 (39-117) U/L Total Protein 6.8 (6.5-8.0) g/dL Albumin 4.1 (3.5-5.0) g/dL TSH 1.13 (0.32-4.0) uIU/mL Urine Color Urine Appearance Urine pH (5.0-9.0) Ur Specific [place] (1.005-1.025) Urine Protein (Neg-Trace) mg/dL Urine Glucose (UA) (Negative) mg/dL Urine Ketones (Negative) mg/dL Urine Blood (Negative) Urine Nitrite (Negative) Ur Leukocyte Esterase (Negative) Urine RBC (0-2) /HPF Urine WBC (0-5) /HPF Ur Squamous Epith Cells (0-2) /HPF Urine Bacteria (None Seen) Hyaline Casts (0-2) /LPF Urine Test (NEGATIVE) Monoscreen (Negative) 09/11/22 09/11/22 09/11/22 Range/Units 10:10 10:45 10:45 WBC (4.8-10.8) X10*3/uL RBC (4.20-5.50) X10*6/uL Hgb (12.0-16.0) g/dl Hct (37.0-47.0) % MCV (80.0-98.0) fL MCH (27.0-33.0) pg MCHC (31.0-35.0) g/dl RDW (11.0-16.0) % Plt Count (160-400) X10*3/uL MPV (9.4-12.3) fL Immature Gran % (Auto) (0.0-0.4) % Neut % (Auto) (45-73) % Lymph % (Auto) (20-40) % [place] % (Auto) (2-11) % Eos % (Auto) (0-4) % Baso % (Auto) (0-2) % Lymph # (Auto) (1.2-4.9) X10*3/uL [place] # (Auto) (0.1-1.2) X10*3/uL Eos # (Auto) (0.0-0.4) X10*3/uL Baso # (Auto) (0.0-0.2) X10*3/uL Abs Immat Gran (auto) (0.00-0.03) X10*3/uL Absolute Neuts (auto) (2.0-8.3) x10*3/uL Absolute Nucleated RBC (0.0-0.012) X10*3/uL Nucleated RBC % (auto) (0.0-0.2) /100WBC Sodium (135-145) mmol/L Potassium (3.3-5.1) mmol/L Chloride (96-108) mmol/L Carbon Dioxide (22-29) mmol/L Anion Gap (12-20) BUN (9-16) mg/dL Creatinine (0.5-1.4) mg/dL Estim Creat Clear Calc Estimated GFR Random Glucose (60-115) mg/dL Lactic Acid (0.5-2.0) mmol/L Calcium (8.4-10.2) mg/dL Magnesium (1.6-2.6) mg/dL Total Bilirubin (0.0-1.0) mg/dL Direct Bilirubin (0.0-0.5) mg/dL AST (5-31) U/L ALT (0-31) U/L Alkaline Phosphatase (39-117) U/L Total Protein (6.5-8.0) g/dL Albumin (3.5-5.0) g/dL TSH (0.32-4.0) uIU/mL Urine Color Yellow Urine Appearance Clear Urine pH 6.0 (5.0-9.0) Ur Specific [place] 1.015 (1.005-1.025) Urine Protein Negative (Neg-Trace) mg/dL Urine Glucose (UA) Negative (Negative) mg/dL Urine Ketones Negative (Negative) mg/dL Urine Blood Large (3+) H (Negative) Urine Nitrite Negative (Negative) Ur Leukocyte Esterase Negative (Negative) Urine RBC 6-10 H (0-2) /HPF Urine WBC 0-5 (0-5) /HPF Ur Squamous Epith Cells 0-2 (0-2) /HPF Urine Bacteria None Seen (None Seen) Hyaline Casts 0-2 (0-2) /LPF Urine Test NEGATIVE (NEGATIVE) Monoscreen Negative (Negative) Independent Interpretation I performed an independent interpretation of an: Plain X-Ray Interpretation: I personally reviewed the chest x-ray and agree with radiologist findings. Radiology Impression Discussion of test interpretation with radiology: I have reviewed the radiologist's reading. Radiologist Impression: EXAMINATION: XR CHEST CLINICAL INFORMATION: Fever COMPARISON: None available. TECHNIQUE: 2 views of the chest were obtained. FINDINGS: No significant abnormality is noted involving the heart, lungs, mediastinum, bony thorax or soft tissues. XR/XR chest 2V IMPRESSION: No acute cardiopulmonary process. Discharge Plan Discharge Clinical Impression: Leukocytosis Patient Disposition: Home, Self-Care Instructions: Leukocytosis (ED) Additional Instructions: Your tick panel and respiratory panel are pending Please return for worsening symptoms Prescriptions: No Action Nortrel 135 (28) 1-35 mg-mcg tablet 1 tab PO DAILY 84 Days Qty: 168 3RF Referrals: Umm Chan NP [Primary Care Provider] - 1 week Interventions: ED Discharge Assessment Last Done: 09/11/22 12:04 Discharge Date/Time: 09/11/22 12:04
--- NOTE | 2022-09-11 10:13 | PC.NURSE ---
Addendum entered by Margaret Nguyen RN 09/11/22 10:14: pt aware we need a urine Original Note: patient a&ox3, iv inserted, labs drawn, xray performed, 1st set of blood cultures drawn, nose swab and second set of cultures to be performed by calos, call clements within reach, will continue to monitor.
[2022-09-11 10:15] LABS: MANUAL DIFF FLAG NO
[2022-09-11 10:17] LABS: Basophils Percent Auto 0.2 % (0-2); Eosinophils Absolute Auto 0.1 X10*3/uL (0.0-0.4); Eosinophils Percent Auto 0.3 % (0-4); Hematocrit 37.5 % (37.0-47.0); Hemoglobin 12.5 g/dl (12.0-16.0); Imm Gran Abs Auto 0.07 X10*3/uL (0.00-0.03); Imm Gran Pct Auto 0.4 % (0.0-0.4); Lymphocytes Percent Auto 11.2 % (20-40); Mean Corpuscular HGB Conc 33.3 g/dl (31.0-35.0); Mean Corpuscular Hemoglobin 29.8 pg (27.0-33.0); Mean Corpuscular Volume 89.5 fL (80.0-98.0); Mean Platelet Volume 11.6 fL (9.4-12.3); Monocytes Absolute Auto 0.7 X10*3/uL (0.1-1.2); Monocytes Percent Auto 3.8 % (2-11); Neutrophils Absolute Auto 14.9 x10*3/uL (2.0-8.3); Neutrophils Percent Auto 84.1 % (45-73); Platelet Count 179 X10*3/uL (160-400); Red Blood Count 4.19 X10*6/uL (4.20-5.50); Red Cell Distribution Width 11.9 % (11.0-16.0); White Blood Count 17.7 X10*3/uL (4.8-10.8)
[2022-09-11 10:35] LABS: Lactic Acid 0.7 mmol/L (0.5-2.0)
[2022-09-11 10:41] LABS: Alanine Aminotransferase 11 U/L (0-31); Albumin Level 4.1 g/dL (3.5-5.0); Alkaline Phosphatase 71 U/L (39-117); Anion Gap 12 (12-20); Aspartate Amino Transferase 12 U/L (5-31); Bilirubin Direct < 0.2 mg/dL (0.0-0.5); Bilirubin Total 0.4 mg/dL (0.0-1.0); Blood Urea Nitrogen 8 mg/dL (9-16); Calcium 8.9 mg/dL (8.4-10.2); Carbon Dioxide 24 mmol/L (22-29); Chloride 107 mmol/L (96-108); Creatinine Clr Calc Pharmacy 116.6; Estimated Glomerular Filt Rate > 60; Glucose Random 87 mg/dL (60-115); Potassium 3.9 mmol/L (3.3-5.1); Sodium 139 mmol/L (135-145); Total Protein 6.8 g/dL (6.5-8.0)
[2022-09-11 10:54] LABS: Urine Pregnancy NEGATIVE (NEGATIVE)
[2022-09-11 10:55] LABS: Appearance Urine Clear; Color Urine Yellow; Glucose Urine UA Negative (Negative); Leukocyte Esterase Urine Negative (Negative); Nitrite Urine Negative (Negative); Specific Gravity - Urine 1.015 (1.005-1.025); UMIC TRIGGER UACC YES; UPreg QC Valid YES; Urine Blood Large (3+) (Negative); Urine Ketones Negative (Negative); Urine Protein Negative (Neg-Trace)
[2022-09-11 10:58] LABS: Bacteria Urine None Seen (None Seen); Hyaline Casts Urine 0-2 /LPF (0-2); Squamous Epithelial Cell Urine 0-2 /HPF (0-2); WBC Urine 0-5 /HPF (0-5)
[2022-09-11 11:07] LABS: Monotest Negative (Negative)
[2022-09-11 11:27] VITALS: BP 123/62; PULSE 79; RESP 18; TEMP 36.9; O2SAT 97
[2022-09-11 11:46] LABS: TSH reflex Free T4 1.13 uIU/mL (0.32-4.0)
[2022-09-11 14:34] LABS: Adenovirus PCR Not Detected (Not Detect.); Bordetella parapertussis PCR Not Detected (Not Detect.); Bordetella pertussis PCR Not Detected (Not Detect.); Chlamydia pneumoniae PCR Not Detected (Not Detect.); Coronavirus 229E PCR Not Detected (Not Detect.); Coronavirus HKU1 PCR Not Detected (Not Detect.); Coronavirus NL63 PCR Not Detected (Not Detect.); Coronavirus OC43 PCR Not Detected (Not Detect.); Human metapneumovirus PCR Not Detected (Not Detect.); Influenza A PCR Not Detected (Not Detect.); Influenza B PCR Not Detected (Not Detect.); Mycoplasma pneumoniae PCR Not Detected (Not Detect.); Parainfluenza 1 PCR Not Detected (Not Detect.); Parainfluenza 2 PCR Not Detected (Not Detect.); Parainfluenza 3 PCR Not Detected (Not Detect.); Parainfluenza 4 PCR Not Detected (Not Detect.); RSV PCR Not Detected (Not Detect.); Rhino/Enterovirus PCR Not Detected (Not Detect.); SARS-CoV-2 PCR Not Detected (Not Detect.)
[2022-09-13 13:23] LABS: Lyme Abs Screen <0.90 index
[2022-09-18 15:48] LABS: Babesia IgG <1:64 titer (<1:64); Babesia IgM <1:20 titer (<1:20)
[2022-09-19 10:59] LABS: A. Phagocytophilum Ab IgG <1:64 (<1:64); A. Phagocytophilum Ab IgM <1:20 (<1:20); E. Chaffeensis Ab IgG <1:64 (<1:64); E. Chaffeensis Ab IgM <1:20 (<1:20)
== END 2022-09-11 12:04 | disposition home or self-care (01) ==
PROVIDERS: Nurse Practitioner Family; Emergency Provider Emergency Medicine; PCP Hospitalist
DX: R79.89 Other specified abnormal findings of blood chemistry (principal); R06.02 Shortness of breath; R50.9 Fever, unspecified; D72.829 Elevated white blood cell count, unspecified; M54.50 Low back pain, unspecified; Z79.899 Other long term (current) drug therapy
CPT/HCPCS: 36415; 71046; 80048; 80076; 81001; 81025; 83605; 83735; 84443; 85025; 86308; 86617; 86618; 86666; 86753; 87040; 87633; 99283; 99284

== ENCOUNTER 2022-09-13 13:00 | Outpatient (REF) | payer OTHER, SELFPAY ==
[2022-09-13 13:10] LABS: MANUAL DIFF FLAG NO
[2022-09-13 14:08] LABS: Basophils Percent Auto 0.2 % (0-2); Eosinophils Absolute Auto 0.1 X10*3/uL (0.0-0.4); Eosinophils Percent Auto 0.4 % (0-4); Hematocrit 36.6 % (37.0-47.0); Hemoglobin 12.3 g/dl (12.0-16.0); Imm Gran Abs Auto 0.09 X10*3/uL (0.00-0.03); Imm Gran Pct Auto 0.5 % (0.0-0.4); Lymphocytes Absolute Auto 2.5 X10*3/uL (1.2-4.9); Mean Corpuscular HGB Conc 33.6 g/dl (31.0-35.0); Mean Corpuscular Hemoglobin 30.5 pg (27.0-33.0); Mean Corpuscular Volume 90.8 fL (80.0-98.0); Mean Platelet Volume 12.8 fL (9.4-12.3); Monocytes Absolute Auto 0.9 X10*3/uL (0.1-1.2); Monocytes Percent Auto 4.7 % (2-11); Neutrophils Absolute Auto 14.5 x10*3/uL (2.0-8.3); Neutrophils Percent Auto 80.2 % (45-73); Platelet Count 205 X10*3/uL (160-400); Red Blood Count 4.03 X10*6/uL (4.20-5.50); Red Cell Distribution Width 11.9 % (11.0-16.0); White Blood Count 18.1 X10*3/uL (4.8-10.8)
== END 2022-09-13 13:01 | disposition home or self-care (01) ==
LOC: HO.LAB 13:00
PROVIDERS: PCP Hospitalist; Visit Provider Hospitalist
DX: D72.829 Elevated white blood cell count, unspecified (principal)
CPT/HCPCS: 36415; 85025

== ENCOUNTER 2022-09-14 08:27 | Outpatient (REF) | payer OTHER, SELFPAY ==
[2022-09-14 08:58] LABS: MANUAL DIFF FLAG NO
[2022-09-14 09:03] LABS: Basophils Percent Auto 0.3 % (0-2); Eosinophils Absolute Auto 0.1 X10*3/uL (0.0-0.4); Eosinophils Percent Auto 0.6 % (0-4); Hemoglobin 13.8 g/dl (12.0-16.0); Imm Gran Abs Auto 0.03 X10*3/uL (0.00-0.03); Imm Gran Pct Auto 0.3 % (0.0-0.4); Lymphocytes Absolute Auto 1.8 X10*3/uL (1.2-4.9); Lymphocytes Percent Auto 16.8 % (20-40); Mean Corpuscular HGB Conc 34.5 g/dl (31.0-35.0); Mean Corpuscular Hemoglobin 30.1 pg (27.0-33.0); Mean Corpuscular Volume 87.1 fL (80.0-98.0); Mean Platelet Volume 12.1 fL (9.4-12.3); Monocytes Absolute Auto 0.5 X10*3/uL (0.1-1.2); Monocytes Percent Auto 4.6 % (2-11); Neutrophils Absolute Auto 8.1 x10*3/uL (2.0-8.3); Neutrophils Percent Auto 77.4 % (45-73); Platelet Count 198 X10*3/uL (160-400); Red Blood Count 4.59 X10*6/uL (4.20-5.50); Red Cell Distribution Width 11.8 % (11.0-16.0); White Blood Count 10.5 X10*3/uL (4.8-10.8)
[2022-09-14 09:16] LABS: Anion Gap 17 (12-20); Blood Urea Nitrogen 9 mg/dL (9-16); Calcium 9.7 mg/dL (8.4-10.2); Carbon Dioxide 22 mmol/L (22-29); Chloride 106 mmol/L (96-108); Estimated Glomerular Filt Rate > 60; Glucose Random 96 mg/dL (60-115); Potassium 4.4 mmol/L (3.3-5.1); Sodium 141 mmol/L (135-145)
== END 2022-09-14 08:28 | disposition home or self-care (01) ==
LOC: HO.LAB 08:27
PROVIDERS: PCP Hospitalist; Visit Provider Physician Assistant
DX: R11.0 Nausea (principal)
CPT/HCPCS: 36415; 80048; 85025

== ENCOUNTER 2022-09-14 08:40 | Outpatient (REF) | payer OTHER, SELFPAY ==
--- NOTE | ~2022-09-14 | CT_ITS ---
EXAMINATION: CT chest, abdomen and pelvis with IV contrast. CLINICAL INDICATIONS: Nausea, diarrhea and leukocytosis. COMPARISON: None. TECHNIQUE: 5 mm thin axial and reformatted 3 mm thin sagittal coronal images of chest, abdomen and pelvis were obtained following IV 85 mL Omnipaque 350. DLP 955. This CT examination was performed using dose optimization technique as appropriate, variously including the following: Automated exposure control Adjustment of MA and/or KV according to patient size(this includes techniques or standardized protocols for targeted exams where dose is matched to indication/reason for exam; extremities or head. Use of iterative reconstruction techniques. FINDINGS: CHEST: LUNGS: The lungs are well-expanded and clear of acute pneumonic process. There are no pulmonary nodules, masses or groundglass density. Minimal atelectatic changes are seen in the right middle lobe medially. Mediastinum: Right thyroid gland is normal. The left thyroid lobe is removed or atrophic. The central trachea and the bronchi are widely patent. Heart size and the great vessels are normal caliber. There is residual anterior mediastinal thymic soft tissue density. No abnormal size mediastinal or hilar lymph nodes seen. No pericardial effusion. No coronary artery calcifications present. Pleura: There is no pleural effusion, thickening or atelectasis. Axilla: No abnormal axillary lymph nodes. The chest wall is unremarkable. Osseous structures: No aggressive lytic or sclerotic process seen. ABDOMEN AND PELVIS: Liver: The liver is homogeneous in density, normal size and contour. There is 5 mm hypodensity right hepatic lobe probable small cyst. No additional lesions seen. There is no intrahepatic ductal dilatation. No focal lesion or intrahepatic ductal dilatation seen. The gallbladder appears unremarkable. Spleen: Unremarkable. There is a small accessory splenule inferior tip. Pancreas: Unremarkable. Adrenal glands: Unremarkable. Kidneys and ureters: Both kidney nephrograms are symmetrical in size, position and cortical thickness. No radiopaque renal calculi or hydroureteronephrosis seen. No perinephric stranding. Lymphovascular structures: The abdominal aorta is of normal caliber. No retroperitoneal lymph nodes seen. GI tract: The stomach is normal and nondistended. No hiatal hernia. The small bowel loops are normal caliber. There is scattered stool in the colon without distention. The small bowel loops. Appendix is not seen. Abdominal wall: Small lacunar hernia containing fat. Pelvis: There is a small right ovarian simple cyst measuring 3.1 x 3.1 cm and 13 Hounsfield units. No abnormal lesion or free fluid seen. Osseous structures: There is no aggressive lytic or sclerotic process seen. CT/CT abdomen pelvis w IV con IMPRESSION: 1. Unremarkable CT chest exam. 2. No acute process seen in the abdomen. 3. Mild constipation without obstruction. 4. Right ovarian simple cyst. 5. Small umbilical hernia containing fat.
[2022-09-14] MEDS: iohexoL 350 MG/ML 100 ML INFUS..BTL IV (09:43)
== END 2022-09-14 08:41 | disposition home or self-care (01) ==
LOC: HO.CT 08:40
PROVIDERS: Visit Provider Physician Assistant
DX: R11.0 Nausea (principal); R19.7 Diarrhea, unspecified; D72.829 Elevated white blood cell count, unspecified
CPT/HCPCS: 71260; 74177; Q9967

== ENCOUNTER 2022-09-20 08:28 | Outpatient (REF) | payer OTHER, SELFPAY ==
[2022-09-20 08:36] LABS: MANUAL DIFF FLAG NO
[2022-09-20 09:32] LABS: Basophils Percent Auto 0.4 % (0-2); Eosinophils Absolute Auto 0.1 X10*3/uL (0.0-0.4); Eosinophils Percent Auto 1.9 % (0-4); Hematocrit 39.9 % (37.0-47.0); Hemoglobin 13.3 g/dl (12.0-16.0); Imm Gran Abs Auto 0.02 X10*3/uL (0.00-0.03); Imm Gran Pct Auto 0.3 % (0.0-0.4); Lymphocytes Absolute Auto 2.2 X10*3/uL (1.2-4.9); Lymphocytes Percent Auto 30.6 % (20-40); Mean Corpuscular HGB Conc 33.3 g/dl (31.0-35.0); Mean Corpuscular Hemoglobin 29.8 pg (27.0-33.0); Mean Corpuscular Volume 89.3 fL (80.0-98.0); Mean Platelet Volume 12.6 fL (9.4-12.3); Monocytes Absolute Auto 0.5 X10*3/uL (0.1-1.2); Monocytes Percent Auto 7.1 % (2-11); Neutrophils Absolute Auto 4.4 x10*3/uL (2.0-8.3); Neutrophils Percent Auto 59.7 % (45-73); Platelet Count 203 X10*3/uL (160-400); Red Blood Count 4.47 X10*6/uL (4.20-5.50); Red Cell Distribution Width 11.8 % (11.0-16.0); White Blood Count 7.3 X10*3/uL (4.8-10.8)
== END 2022-09-20 08:29 | disposition home or self-care (01) ==
LOC: HO.LAB 08:28
PROVIDERS: PCP Hospitalist; Visit Provider Hospitalist
DX: D72.829 Elevated white blood cell count, unspecified (principal)
CPT/HCPCS: 36415; 85025

== ENCOUNTER 2023-01-31 08:54 | Outpatient (AMB) | payer OTHER, SELFPAY ==
--- NOTE | 2023-01-31 09:02 | MHC.OFFVIS ---
Intake Vital Signs 01/31/23 09:03 Height 5 ft 8 in Weight 208 lb BMI 31.6 BP 122/72 Intake Visit Reasons: Annual Intake Note: The patient agreed to use of a director of medical education during this encounter. Scribed for MELE Maldonado by Jolly Valerio director of medical education, on 01/31/2023 at 9:22 am EST. Associate Manager Affiliate Marketing Required: No Information Interpreted: non-clinical & clinical Carton Forming Machine Adjuster: Carton Forming Machine Adjuster Present (Marcie) Allergies No Known Allergies [No Known Allergies*] Allergy (Verified 01/31/23 09:04) Is last menstrual period known: Yes Last menstrual period: 01/08/23 Post menopausal: No Patient : No HPI HPI Comments History of Present Illness Details She is a premenopausal woman presenting for annual exam. Doing well with no fourdrinier machine tender concerns. She admits to eating healthy and tries to stay active with exercise. Currently sexually active. Uses Nortrel for BC and is doing well. Denies vaginal itching and irritation. STD screening offered; she accepts. Denies family hx of breast, colon and ovarian cancer. Last pap smear 01/29/22. Last mammogram 03/22/22. She denies any contraindications to control such as: migraines with aura, history of DVT or pulmonary emboli, high blood pressure, liver disease, thrombolic disorders, Lupus, +KELI, or smoking. Reviewed use, side effects and warnings including ACHES. PFSH Medical History Anal fissure Renal stones Surgical History History of section Family History Father No problems noted. 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 Current occupational exposures/hazards: Yes Sexual orientation: Straight/Heterosexual Gender identity: Female Female Reproductive History Menstrual Age of Menarche: 11 Duration of menses: 3-5 days Date of last menstrual period: 01/08/23 control method: pills Total pregnancies: 2 Full term: 2 Number of Living Children: 2 Date of last pap smear: 01/29/22 (neg pap and hpv) Date of Mammogram: 03/22/22 (Birad 0) Physical Exam Vital Signs: Last Vital Signs BP 122/72 01/31/23 09:03 BMI result Body Mass Index 31.6 Const General: cooperative, healthy appearing, no acute distress, well developed and alert Orientation/consciousness: patient oriented x3 HEENT Head: Yes normal to inspection Eyes General: appearance normal, both eyes and all related structures Neck Neck: Yes normal visual inspection Thyroid: Thyroid normal Chest Chest palpation & inspection: normal inspection of the chest Breast/axilla inspection: normal inspection of the breasts (no puckering, dimpling, peau de orange, retraction, discharge, masses) Breast/axilla palpation: normal palpation of the breasts Resp Effort & Inspection: normal respiratory effort GI Inspection: Yes normal to inspection Palpation (GI): Soft to palpation (to palpation) Rectal Exam - Female: deferred General: Yes bladder normal to inspection External Female Exam: normal external appearance and normal appearance of the urethra Speculum Exam - Vagina: normal appearance of the vagina, normal palpation and normal vaginal discharge Speculum Exam - Cervix: normal appearance of the cervix and normal palpation Bimanual exam- vagina & uterus: normal palpation and normal palpation Bimanual Exam- Adnexa, other: normal adnexae and no masses Skin General skin exam: no rashes or lesions noted Neuro General: patient oriented x3 Cognition (Neuro): normal cognition Extrem General: Yes normal to inspection Psych Attitude: cooperative Thought process: Normal thought process present Assessment & Plan Assessment & Plan (1) Encounter for well woman exam: Code(s): Z01.419 - Encounter for gynecological examination (general) (routine) without abnormal findings Plan: Discussed: Current recommendations for pap smears per ASCCP guidelines Breast awareness and periodic self breast exams. Maintaining a healthy lifestyle including a well balanced diet and routine exercise. All of her questions and concerns were addressed to the best of my ability. RTO in one year for AG. (2) Contraceptive surveillance: Code(s): Z30.40 - Encounter for surveillance of contraceptives, unspecified Plan: Continue Nortrel BC; Rx sent to pharmacy. She was instructed to go to ER if she develops loss of vision, severe headache that does not resolve, chest pain, difficulty breathing, abdominal pain, or severe pain or tenderness in extremity. Call the office with any concerns. Orders: Orders MM tomosynthesis screening BI Today Z12.31 - Encounter for screening mammogram for malignant neoplasm of breast Medications: Refilled norethindrone-ethin estradiol 1-35 mg-mcg (Nortrel) 1 tab PO DAILY 168 tabs 3RF 84 days Coding Level of Care Code Est Pt Prev Care 40-64y(51038) Diagnoses Encounter for well woman exam Z01.419 Contraceptive surveillance Z30.40
[2023-01-31 09:03] VITALS: BP 122/72; BMI 31.6
== END 2023-01-31 09:42 | disposition home or self-care (01) ==
LOC: HO.HWS 08:54
PROVIDERS: PCP Hospitalist; Visit Provider Advanced Practice Midwife
DX: Z01.419 Encounter for gynecological examination (general) (routine) without abnormal findings (principal)
CPT/HCPCS: 99396

== ENCOUNTER → 2023-01-31 08:54 | Outpatient (BNVA) | payer OTHER, SELFPAY | PROVIDERS: PCP Hospitalist; Visit Provider Advanced Practice Midwife ==

== ENCOUNTER 2023-03-29 09:49 | Outpatient (REF) | payer OTHER, SELFPAY | END 2023-03-29 09:50 | disposition home or self-care (01) | LOC: HO.MAMMO 09:49 | PROVIDERS: PCP Physician Assistant; Visit Provider Advanced Practice Midwife | DX: Z12.31 Encounter for screening mammogram for malignant neoplasm of breast (principal) | CPT/HCPCS: 77063; 77067 ==

== ENCOUNTER → 2023-03-29 10:00 | Outpatient (BNV) | payer OTHER, SELFPAY | PROVIDERS: PCP Physician Assistant; Visit Provider Radiology Diagnostic Radiology | DX: Z12.31 Encounter for screening mammogram for malignant neoplasm of breast (principal) | CPT/HCPCS: 77063; 77067 ==

== ENCOUNTER 2023-04-16 07:31 | Outpatient (REF) | payer OTHER, SELFPAY ==
[2023-04-16 07:48] LABS: MANUAL DIFF FLAG NO
[2023-04-16 08:00] LABS: Basophils Percent Auto 0.5 % (0-2); Eosinophils Absolute Auto 0.1 X10*3/uL (0.0-0.4); Imm Gran Abs Auto 0.02 X10*3/uL (0.00-0.03); Imm Gran Pct Auto 0.3 % (0.0-0.4); Lymphocytes Absolute Auto 2.2 X10*3/uL (1.2-4.9); Lymphocytes Percent Auto 27.6 % (20-40); Mean Corpuscular HGB Conc 33.3 g/dl (31.0-35.0); Mean Corpuscular Hemoglobin 30.4 pg (27.0-33.0); Mean Corpuscular Volume 91.1 fL (80.0-98.0); Monocytes Absolute Auto 0.6 X10*3/uL (0.1-1.2); Neutrophils Percent Auto 62.6 % (45-73); Platelet Count 187 X10*3/uL (160-400); Red Blood Count 4.28 X10*6/uL (4.20-5.50); Red Cell Distribution Width 11.9 % (11.0-16.0)
[2023-04-16 08:16] LABS: Alanine Aminotransferase 12 U/L (0-31); Albumin Level 4.1 g/dL (3.5-5.0); Alkaline Phosphatase 67 U/L (39-117); Anion Gap 13 (12-20); Aspartate Amino Transferase 14 U/L (5-31); Bilirubin Direct 0.1 mg/dL (0.0-0.5); Bilirubin Total 0.3 mg/dL (0.0-1.0); Blood Urea Nitrogen 11 mg/dL (9-16); Calcium 9.8 mg/dL (8.4-10.2); Carbon Dioxide 25 mmol/L (22-29); Chloride 108 mmol/L (96-108); Estimated Glomerular Filt Rate > 60; Glucose Random 88 mg/dL (60-115); Potassium 4.5 mmol/L (3.3-5.1); Sodium 141 mmol/L (135-145); Total Protein 7.4 g/dL (6.5-8.0)
== END 2023-04-16 07:32 | disposition home or self-care (01) ==
LOC: HO.LAB 07:31
PROVIDERS: Visit Provider Physician Assistant
DX: Z79.899 Other long term (current) drug therapy (principal)
CPT/HCPCS: 36415; 80048; 80076; 85025

== ENCOUNTER 2023-05-30 12:02 | Outpatient (REF) | payer OTHER, SELFPAY ==
[2023-05-30 12:14] LABS: MANUAL DIFF FLAG NO
[2023-05-30 12:34] LABS: Basophils Percent Auto 0.4 % (0-2); Eosinophils Absolute Auto 0.1 X10*3/uL (0.0-0.4); Eosinophils Percent Auto 1.5 % (0-4); Hematocrit 39.6 % (37.0-47.0); Hemoglobin 13.4 g/dl (12.0-16.0); Imm Gran Abs Auto 0.03 X10*3/uL (0.00-0.03); Imm Gran Pct Auto 0.4 % (0.0-0.4); Lymphocytes Absolute Auto 2.8 X10*3/uL (1.2-4.9); Lymphocytes Percent Auto 36.9 % (20-40); Mean Corpuscular HGB Conc 33.8 g/dl (31.0-35.0); Mean Corpuscular Hemoglobin 30.7 pg (27.0-33.0); Mean Corpuscular Volume 90.8 fL (80.0-98.0); Mean Platelet Volume 11.9 fL (9.4-12.3); Monocytes Absolute Auto 0.6 X10*3/uL (0.1-1.2); Monocytes Percent Auto 7.6 % (2-11); Neutrophils Percent Auto 53.2 % (45-73); Platelet Count 234 X10*3/uL (160-400); Red Blood Count 4.36 X10*6/uL (4.20-5.50); Red Cell Distribution Width 11.9 % (11.0-16.0); White Blood Count 7.5 X10*3/uL (4.8-10.8)
[2023-05-30 12:56] LABS: Alanine Aminotransferase 17 U/L (0-31); Albumin Level 4.4 g/dL (3.5-5.0); Alkaline Phosphatase 75 U/L (39-117); Anion Gap 11 (12-20); Aspartate Amino Transferase 16 U/L (5-31); Bilirubin Direct 0.1 mg/dL (0.0-0.5); Bilirubin Total 0.3 mg/dL (0.0-1.0); Blood Urea Nitrogen 10 mg/dL (9-16); Calcium 9.6 mg/dL (8.4-10.2); Carbon Dioxide 27 mmol/L (22-29); Chloride 104 mmol/L (96-108); Estimated Glomerular Filt Rate > 60; Glucose Random 67 mg/dL (60-115); Potassium 4.3 mmol/L (3.3-5.1); Sodium 138 mmol/L (135-145); Total Protein 7.8 g/dL (6.5-8.0)
== END 2023-05-30 12:03 | disposition home or self-care (01) ==
LOC: HO.LAB 12:02
PROVIDERS: Visit Provider Physician Assistant
DX: B35.1 Tinea unguium (principal); L82.1 Other seborrheic keratosis; D18.01 Hemangioma of skin and subcutaneous tissue; L81.4 Other melanin hyperpigmentation; Z71.89 Other specified counseling; Z79.899 Other long term (current) drug therapy
CPT/HCPCS: 36415; 80048; 80076; 85025

== ENCOUNTER 2023-06-25 10:34 | Outpatient (AMB) | payer OTHER, SELFPAY ==
[2023-06-25 10:50] VITALS: BP 158/82; PULSE 72; RESP 17; BMI 32.2
--- NOTE | 2023-06-25 10:50 | A.OFFPC_ITS ---
Vital Signs 06/25/23 10:50 06/25/23 11:03 Height 5 ft 8 in Weight 211 lb 8 oz BMI 32.2 BP 158/82 H 122/68 Blood Pressure Location Lt brachial Rt brachial Position Sitting Sitting Respiration 17 Pulse 72 Pulse Source Palpation Intake Visit Reasons: NPV/REQUESTING PHY Intake Note: Pt is here to Transfer of care from Dr. Chan, here for PE. Grain Inspector Required: No Accompanied by: Self / Same As Patient Allergies No Known Allergies [No Known Allergies*] Allergy (Verified 06/25/23 11:06) Medication List - Last Reconciled 06/25/23 by Juan Daniel Means PA-C norethindrone-ethin estradiol 1-35 mg-mcg (Nortrel) 1 tab PO DAILY 84 days terbinafine HCl 250 mg PO DAILY Tobacco use date assessed: 06/25/23 Dental Screening Dental Screen Date: 06/25/23 Did you have a dental visit in the last 12 months?: Yes Did you have a dental problem in the last 6 months where you did not have access to dental care?: No Was dental information given to patient?: Patient has dentist HPI NPV/REQUESTING PHY HPI Details Patient is a 42-year-old female here today for an annual physical. Patient previous PCP was at the [facility] ( ainsley Chan). 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 Patient has no significant past medical history. --> has been taking terbinafine p.o. reg iment over the last several weeks from a supervisor plastic sheets due to nail issue. Concern--> noted elevated blood pressure reading today in office. Has been asymptomatic Advised to monitor blood pressure at home Vaccine: Up-to-date with COVID, flu, tetanus vaccines. 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 Mammo: Up-to-date with mammogram [facility] Medical History Renal stones Anal fissure Surgical History History of section Family History (Updated 06/25/23 @ 11:13 by Juan Daniel Means PA-C) Father Prostate cancer Connective tissue disease Mother Hypertension Diabetes Social History Housing: House Alcohol intake: current Alcohol intake frequency: holidays/special occasions only Patient Tobacco Use Status: Never used Tobacco e-Cigarette/Vaping Use: Never Used Second Hand Smoke Exposure: No service: No Current occupational status: employed 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 1. Little interest or pleasure in doing things: not at all 2. Feeling down, depressed, or hopeless: not at all 3. Trouble falling or staying asleep, or sleeping too much: not at all 4. Feeling tired or having little energy: not at all 5. Poor appetite or overeating: not at all 6. Feeling bad about yourself - or that you are a failure or have let yourself or your family down: not at all 7. Trouble concentrating on things, such as reading the newspaper or watching television: not at all 8. Moving or speaking so slowly that other people could have noticed. Or the opposite - being so fidgety or restless that you have been moving around a lot more than usual: not at all 9. Thoughts that you would be better off or of hurting yourself in some way: not at all Total score: 0 Depression Screening Interpretation: Negative Depression Screening Done: Yes 47420 - PHQ-9 Billing: Yes Source: Developed by Drs. Abdirashid Abbott, Agnes Mccrary, Richard Mera and colleagues, with an educational cornell from [employer]. Thrive Questionnaire Date Thrive assessed: 06/25/23 I am a: Patient What is your living situation today?: I have a steady place to live Within the past 12 months, did the food you bought not last and you didn't have the money to get more?: Never true Within the past 12 months, did you worry whether your food would run out before you got money to buy more?: Never true Do you have trouble paying for medicines?: No Do you have trouble getting transportation to medical appointments?: No Do you have trouble paying your heating and electricity bill?: No Do you have trouble taking care of your child, family member or friend?: No Do you have trouble with day-to-day activities such as bathing, preparing meals, shopping, managing finances, etc.?: No Are you currently unemployed and looking for a job?: No Are you interested in more education?: No Please select the resources that you would like help with: None Currently or been in a relationship where the following occur: no concerns reported AUDIT C Alcohol Use Questionnaire (AUDIT-C) 1. How often do you have a drink containing alcohol?: Monthly or less 2. How many drinks containing alcohol do you have on a typical day when you are drinking?: 1 or 2 3. How often do you have six or more drinks on one occasion?: Never Total Score: 1 GLORIA-7 AMB Questionnaire GLORIA-7 Date GLORIA - 7 assessed: 06/25/23 Feeling nervous, anxious, or on edge: 0 = Not at all Not being able to stop or control worryin = Not at all Worrying too much about different things: 0 = Not at all Trouble relaxin = Not at all Being so restless that it is hard to sit still: 0 = Not at all Becoming easily annoyed or irritable: 0 = Not at all Feeling afraid as if something awful might happen: 0 = Not at all Total GLORIA-7 score (0-4 normal; 5-9 mild; 10-14 moderate; 15-21 severe): 0 Source: Developed by Drs. Abdirashid Abbott, Agnes Mccrary, Richard Mera and colleagues, with an educational cornell from [employer]. GLORIA-7 Assessment Billing GLORIA-7 Assessment Tool: GLORIA-7 Assessment 97462 Review of Systems Const Denies body aches, Denies chills, Denies excessive sweating, Denies fatigue, Denies fever(s) and Denies headache(s) Eyes Denies blurry vision ENT Denies dysphagia, Denies vertigo, Denies dizziness, Denies headache(s), Denies hearing loss and Denies tinnitus Card Denies chest pain, Denies chest pain with activity, Denies syncope, Denies irregular heart rhythm and Denies dyspnea Resp Denies chest congestion, Denies cough, Denies hemoptysis, Denies dyspnea and Denies wheezing GI Denies abdominal pain, Denies melena, Denies hematochezia, Denies coffee ground emesis, Denies dysphagia, Denies diarrhea, Denies nausea and Denies vomiting Denies urinary frequency, Denies dysuria, Denies urinary hesitancy and Denies urinary urgency Musc Denies arthralgias, Denies limited range of motion, Denies muscle cramps and Denies muscle weakness Skin/Breast Denies rash and Denies skin ulcer Neuro Denies Abnormal speech present, Denies confusion, Denies vertigo, Denies dizziness, Denies syncope, Denies headache(s), Denies memory loss and Denies seizure-like activity Psych Denies anxiety, Denies confusion, Denies depression, Denies memory loss, Denies panic attacks and Denies paranoia Endo Denies excessive sweating, Denies fatigue, Denies flushing, Denies polydipsia and Denies polyuria Aller/Immun Denies wheezing Physical exam (Primary Care) Vital Signs: Last Vital Signs Pulse 72 06/25/23 10:50 Resp 17 06/25/23 10:50 BP 122/68 06/25/23 11:03 BMI result Body Mass Index 32.2 BMI Assessment/Plan discussion: High Tobacco/Smoking Status: Tobacco use Status Tobacco use date assessed 06/25/23 06/25/23 10:57 Patient Tobacco Use Status Never used Tobacco 06/25/23 10:57 e-Cigarette/Vaping Use Never Used 06/25/23 10:57 PHQ-9: PHQ-9 Score PHQ-9: Total score 0 06/25/23 11:07 Depression Screening Interpretation: Negative Thrive Assessment: Date of Thrive Assessment Date Thrive assessed 06/25/23 06/25/23 10:57 Currently or been in a relationship where the following occur: no concerns reported Const Other: Obese General: cooperative, comfortable, no acute distress, alert and awake; No confusion Orientation/consciousness: oriented to person, oriented to place, patient oriented x3 and No confusion HENMT Head: Yes normocephalic Ears: external ears normal and TM's normal bilaterally Face and sinus: No sinus tenderness Mouth: Normal oral and palatal mucosa present and tongue normal Teeth and gingiva: dentition normal and gingiva normal Throat: Yes posterior oropharynx normal, Yes tonsils normal and Yes uvula midline Eyes Conjunctivae: conjunctivae normal Sclerae: sclerae normal Pupils: Equal, round and reactive pupils present EOM: EOMs intact bilaterally Direct Ophthalmoscopy: No no photophobia Neck Neck: Yes no lymphadenopathy, No tender and Yes no JVD Thyroid: Thyroid normal Carotids: no bruits Chest Chest palpation & inspection: no tenderness Resp Effort & Inspection: normal respiratory effort, no audible wheezes, not labored and no stridor Auscultation: no crackles, no rales, no rhonchi and no wheezes Cardio Jugular venous distension: no JVD Rate: regular rate, not bradycardic and not tachycardic Rhythm: regular rhythm Bruits: no carotid bruits Peripheral pulses: Peripheral pulses 2+ throughout GI Inspection: Yes normal to inspection, No abdominal wall ecchymosis and No visible herniation Palpation (GI): Soft to palpation, nontender, no guarding, not rigid and No hepatosplenomegaly present Auscultation: normoactive bowel sounds General: Yes no CVA tenderness Back/Spine/Pelvis Back: no CVA tenderness and No back tenderness Cervical Spine: cervical ROM normal Thoracic/Lumbar Spine: thoracic and lumbar spine normal to inspection, straight leg raise negative bilaterally, No thoraco-lumbar ROM limited and No lumbar spinal tenderness Skin Lesions: no lesions Rashes: no rashes Wounds: no wounds Neuro General: oriented to person, oriented to place, patient oriented x3, CN's II-XI intact bilaterally and No confusion Cranial nerves: Yes Equal, round and reactive pupils present and Yes Normal accommodation reflex present Cognition (Neuro): normal cognition Speech: No Abnormal speech present Gait exam (Neuro): Normal gait present Motor exam (neuro): 5/5 motor strength present throughout Extrem Right upper extremity: full ROM; no cyanosis Left upper extremity: full ROM; no cyanosis Right lower extremity: no edema Left lower extremity: no edema Psych Appearance: grossly normal Mental Status: mental status grossly normal Affect: normal affect Attitude: cooperative Thought process: Normal thought process present Assessment and Plan Assessment & Plan (1) Normal physical exam: Code(s): Z00.00 - Encounter for general adult medical examination without abnormal findings (2) Obese: Code(s): E66.9 - Obesity, unspecified Qualifiers: Body mass index: BMI 32.0-32.9 Obesity classification: adult class 1 (BMI 30 - 34.9) Obesity type: due to excess calories Serious obesity comorbidity presence: without serious comorbidity Qualified Code(s): E66.09 - Other obesity due to excess calories; Z68.32 - Body mass index [BMI] 32.0-32.9, adult Plan: Patient does understand her BMI is over 30 will work on being more physically active and adapting to better eating habits to reduce her weight. (3) Elevated BP without diagnosis of hypertension: Code(s): R03.0 - Elevated blood-pressure reading, without diagnosis of hypertension Plan: Noted elevated blood pressure readings today in office. Otherwise asymptomatic, has had viral illness recently has been taking cough cold medication.. Questioning white coat hypertension. Advised to monitor blood pressure at home with goal blood pressure to be below 140/90. (4) Screening for diabetes mellitus (DM): Code(s): Z13.1 - Encounter for screening for diabetes mellitus Orders: Orders Complete Blood Count no Diff Today D72.829 - Elevated white blood cell count, unspecified Comprehensive [place]. Panel Fast Today Z13.1 - Encounter for screening for diabetes mellitus Coding Level of Care Code Est Pt Prev Care 40-64y(55943) Diagnoses Normal physical exam Z00.00 Class 1 obesity due to excess calories without serious comorbidity with body mass index (BMI) of 32.0 to 32.9 in adult E66.09; Z68.32 Body mass index: BMI 32.0-32.9 Obesity classification: adult class 1 (BMI 30 - 34.9) Obesity type: due to excess calories Serious obesity comorbidity presence: without serious comorbidity Elevated BP without diagnosis of hypertension R03.0 Screening for diabetes mellitus (DM) Z13.1 Additional Codes GLORIA-7 Assessment Billing - GLORIA-7 Assessment Tool: GLORIA-7 Assessment [id number] ([id number])
[2023-06-25 11:03] VITALS: BP 122/68
== END 2023-06-25 11:27 | disposition home or self-care (01) ==
PROVIDERS: PCP Hospitalist; Visit Provider Physician Assistant
DX: Z00.00 Encounter for general adult medical examination without abnormal findings (principal); E66.09 Other obesity due to excess calories; Z68.32 Body mass index [BMI] 32.0-32.9, adult; R03.0 Elevated blood-pressure reading, without diagnosis of hypertension; Z13.1 Encounter for screening for diabetes mellitus
CPT/HCPCS: 99396

== ENCOUNTER 2023-08-22 09:16 | Outpatient (REF) | payer OTHER, SELFPAY ==
[2023-08-22 09:44] LABS: Hemoglobin 13.9 g/dl (12.0-16.0); Mean Corpuscular HGB Conc 34.8 g/dl (31.0-35.0); Mean Corpuscular Hemoglobin 30.4 pg (27.0-33.0); Mean Corpuscular Volume 87.5 fL (80.0-98.0); Mean Platelet Volume 11.8 fL (9.4-12.3); Platelet Count 198 X10*3/uL (160-400); Red Blood Count 4.57 X10*6/uL (4.20-5.50); Red Cell Distribution Width 11.9 % (11.0-16.0); White Blood Count 7.1 X10*3/uL (4.8-10.8)
[2023-08-22 10:07] LABS: Alanine Aminotransferase 11 U/L (0-31); Albumin Level 4.3 g/dL (3.5-5.0); Alkaline Phosphatase 69 U/L (39-117); Anion Gap 14 (12-20); Aspartate Amino Transferase 13 U/L (5-31); Bilirubin Total 0.5 mg/dL (0.0-1.0); Blood Urea Nitrogen 11 mg/dL (9-16); Calcium 9.9 mg/dL (8.4-10.2); Carbon Dioxide 27 mmol/L (22-29); Chloride 105 mmol/L (96-108); Estimated Glomerular Filt Rate > 60; Glucose Fasting 89 mg/dL (60-99); Potassium 4.5 mmol/L (3.3-5.1); Sodium 141 mmol/L (135-145); Total Protein 7.8 g/dL (6.5-8.0)
== END 2023-08-22 09:17 | disposition home or self-care (01) ==
LOC: HO.LAB 09:16
PROVIDERS: PCP Physician Assistant; Visit Provider Physician Assistant
DX: Z13.1 Encounter for screening for diabetes mellitus (principal); D72.829 Elevated white blood cell count, unspecified
CPT/HCPCS: 36415; 80053; 85027

== ENCOUNTER 2023-08-27 11:27 | Outpatient (AMB) | payer OTHER, SELFPAY ==
[2023-08-27 11:44] VITALS: BP 162/84; PULSE 92; O2SAT 100; BMI 30.7
--- NOTE | 2023-08-27 11:44 | A.OFFPC_ITS ---
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 Has noted to have elevated blood pressures as of late. Has been doing home monitoring and noting elevations in her systolic blood pressure. She does re port at times having symptoms of help palpitations, right ear pain and headaches. She has been working on better eating habits and has lost weight since last office visit. She does mention some concerned about being on oral contraceptives as they may cause hypertension. Of note she does admit to excessively checking your blood pressure and noting some slightly elevated readings which is causing some anxiety as well. 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 Abdirashid Abbott, Agnes Mccrary, Richard Mera and colleagues, with an educational cornell from [employer]. Review of Systems Const Reports headache(s) Eyes Denies loss of vision ENT Denies vertigo, Denies dizziness, Reports headache(s) and Denies sore throat Card Details: + intermittent palpitations Denies chest pain, Denies leg edema and Denies lightheadedness Resp Denies cough, Denies hemoptysis and Denies wheezing GI Denies abdominal pain, Denies melena, Denies constipation, Denies diarrhea and Denies vomiting Denies urinary frequency, Denies dysuria and Denies urinary urgency Musc Denies arthralgias, Denies joint swelling, Denies numbness and Denies tingling Neuro Denies Abnormal speech present, Denies behavioral changes, Denies vertigo, Denies dizziness, Reports headache(s), Denies loss of vision, Denies memory loss, Denies numbness and Denies tingling Psych Denies anxiety, Denies behavioral changes, Denies depression, Denies memory loss and Denies panic attacks Noe/Lymph Denies easy bleeding and Denies easy bruising Aller/Immun Denies wheezing Physical exam (Primary Care) Vital Signs: Last Vital Signs Pulse 92 08/27/23 11:44 BP 162/84 H 08/27/23 11:44 Pulse Ox 100 08/27/23 11:44 Oxygen Delivery Method Room Air 08/27/23 11:44 BMI result Body Mass Index 30.7 Tobacco/Smoking Status: Tobacco use Status Tobacco use date assessed 06/25/23 08/27/23 11:45 Patient Tobacco Use Status Never used Tobacco 08/27/23 11:45 e-Cigarette/Vaping Use Never Used 08/27/23 11:45 Thrive Assessment: Date of Thrive Assessment Date Thrive assessed 06/25/23 08/27/23 11:45 Const General: healthy appearing, no acute distress, alert and awake Nutritional Appearance: well nourished Orientation/consciousness: oriented to person, oriented to place and oriented to time HENMT Ears: TM's normal bilaterally General nose exam: Normal nasal mucous membranes and turbinates present Eyes Conjunctivae: conjunctivae normal Sclerae: sclerae normal Pupils: Equal, round and reactive pupils present Neck Neck: Yes no lymphadenopathy and Yes no JVD Thyroid: Thyroid normal Carotids: no bruits Resp Effort & Inspection: normal respiratory effort and not tachypneic Auscultation: no crackles, no rales, no rhonchi and no wheezes Cardio Rate: regular rate Rhythm: regular rhythm Heart sounds: no murmurs and normal S1 and S2 GI Palpation (GI): Soft to palpation, nontender, no hepatomegaly and no splenomegaly Auscultation: normal bowel sounds Skin General skin exam: no rashes or lesions noted and dry skin Neuro General: oriented to person, oriented to place and oriented to time Cranial nerves: Yes Equal, round and reactive pupils present Speech: No Abnormal speech present Gait exam (Neuro): Normal gait present Motor exam (neuro): no tremor noted Extrem Right upper extremity: full ROM Left upper extremity: full ROM Right lower extremity: full ROM; no edema Left lower extremity: full ROM; no edema Psych Mental Status: mental status grossly normal Speech and movement: Normal speech and movement present Affect: normal affect Attitude: cooperative Thought process: Normal thought process present Assessment and Plan Assessment & Plan (1) HTN (hypertension): Code(s): I10 - Essential (primary) hypertension Qualifiers: Hypertension type: primary hypertension Qualified Code(s): I10 - Essential (primary) hypertension Plan: Patient's blood pressure elevated today in office. Has been elevated at home readings. Will start low-dose hydrochlorothiazide and continue monitoring blood pressure few times a week. Will have patient back in 3 weeks for blood pressure check. Orders: Orders ECG 12 lead EKG Today R00.2 - Palpitations Medications: New hydrochlorothiazide 12.5 mg PO DAILY 30 days 30 tabs 1RF I10 - Essential (primary) hypertension Coding Level of Care Code Est Pt Level 3 (06256) Diagnoses Primary hypertension I10 Hypertension type: primary hypertension
== END 2023-08-27 12:22 | disposition home or self-care (01) ==
PROVIDERS: PCP Physician Assistant; Visit Provider Physician Assistant
DX: I10 Essential (primary) hypertension (principal)
CPT/HCPCS: 99213

== ENCOUNTER → 2023-08-28 08:40 | Outpatient (REF) | payer OTHER, SELFPAY ==
--- NOTE | 2023-08-28 08:42 | ECG_ITS ---
Test Reason : palpitations Blood Pressure : / mmHG Vent. Rate : 076 BPM Atrial Rate : 076 BPM P-R Int : 144 ms QRS Dur : 074 ms QT Int : 386 ms P-R-T Axes : 043 049 070 degrees QTc Int : 434 ms Normal sinus rhythm with sinus arrhythmia Nonspecific ST abnormality Abnormal ECG When compared with ECG of 03-NOV-2021 07:44, No significant change was found Referred By: Juan Daniel Means Electronically Signed By:Nico Contreras
== END ==
LOC: HO.CARD 08:40
PROVIDERS: Visit Provider Physician Assistant
DX: R00.2 Palpitations (principal)
CPT/HCPCS: 93005

== ENCOUNTER → 2023-08-28 08:42 | Outpatient (BNV) | payer OTHER, SELFPAY | PROVIDERS: Visit Provider Internal Medicine Cardiovascular Disease | DX: I49.9 Cardiac arrhythmia, unspecified (principal); R00.2 Palpitations; R94.31 Abnormal electrocardiogram [ECG] [EKG] | CPT/HCPCS: 93010 ==

== ENCOUNTER 2023-09-04 09:13 | Emergency (ER) | payer OTHER, SELFPAY ==
--- NOTE | ~2023-09-04 | CT_ITS ---
Examination: CT brain, CT cervical spine and CT facial bones. CLINICAL INDICATION: Right-sided facial numbness/pressure. COMPARISON: None. TECHNIQUE: 5 mm thin axial and reformatted 2 mm thin sagittal and coronal images of brain were obtained. Subsequently axial 3 mm thin and reformatted 2 mm thin sagittal and coronal images of cervical spine were obtained. Lastly axial 3 mm thin and reformatted 1.5 mm thin sagittal and coronal images of facial bones were obtained. DLP 694. This CT examination was performed using dose optimization technique as appropriate, variously including the following: Automated exposure control Adjustment of MA and/or KV according to patient size(this includes techniques or standardized protocols for targeted exams where dose is matched to indication/reason for exam; extremities or head. Use of iterative reconstruction techniques. FINDINGS: BRAIN: There is no acute intra-axial, extra-axial bleed, masses, collection or midline shift. There is no acute infarction evolution. The lateral ventricles are symmetrical in size and configuration without enlargement. Bone windows reveal no calvarial abnormality. There is no scalp soft tissue abnormality. Bilateral paranasal sinuses and mastoid air cells are well-aerated. CERVICAL SPINE: There is mild straightening of cervical lordosis. The vertebral heights, and alignment is normal. There is mild loss of C4-C5, C5-C6 and C6 S1 disc levels with mild ventral and posterior spondylosis. No aggressive lytic or sclerotic process seen. There is moderate to significant right C2-C4 facet joint arthropathy and hypertrophy. The craniovertebral junction and C1-C2 alignment is normal. The prevertebral soft tissues are normal. This central trachea and the bronchi widely patent. 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 Right thyroid lobe is normal size with a hypodense nodule suspected. The lung apices are clear FACIAL BONES: The paranasal sinuses are well-aerated. The bony sinus betts, lamina papyracea and the cribriform plate is normal. Visualized optic globe, optic nerve and the bony orbits are normal. Pre and post septal orbital soft tissues are normal. There is no visible fracture involving the nasal bone. There is mild deviated nasal septum to the right with patent nasopharynx, nasal cavity and pharyngeal airway. Bilateral TM joints and the visualized mandibles are normal. No maxillofacial fractures seen. The maxillofacial soft tissues are normal. CT/CT cervical spine wo IV con IMPRESSION: No acute intracranial process seen. No acute fracture, dislocation or subluxation in cervical spine. There are degenerative disc changes and straightening of cervical lordosis likely spasm or positional. There is no maxillofacial, nasal or mandibular fracture.
--- NOTE | 2023-09-04 09:21 | ED_ITS ---
HPI - General Adult General Chief complaint: General Medical Stated complaint: Sinus pressure Time Seen by Provider: 09/04/23 09:15 Source: patient Mode of arrival: ambulatory Limitations: no limitations History of Present Illness HPI narrative: Patient is a 42 year old assigned female at with a history of HTN presenting to the emergency department today with right sided facial pressure, numbness, and tingling. Patient states that over the last few weeks she has had right sided facial pressure, numbness, and tingling - specifically under the right eye and into the right ear. Patient denies any dizziness, lightheadedness, abdominal pain, nausea, vomiting, fever, chills, blurry vision, double vision, loss of vision, chest pain, difficulty breathing, shortness of breath, back pain, night sweats, pain with urination, increased urinary frequency, increased urinary urgency, blood in her urine or stool, syncope or a near syncopal episode, recent trauma or falls, bowel incontinence, bladder incontinence, bowel retention, bladder retention, or any other complaints at this time. Onset (ago): week(s) Location: face and right Severity scale (1-10): 3 Pain Consistency: intermittent Relieving factors: none Exacerbating factors: none Associated symptoms: denies other symptoms Treatments prior to arrival: none Related Data Home Medications Medication Instructions Recorded Confirmed terbinafine HCl 250 mg tablet 250 mg PO DAILY 06/25/23 08/27/23 Previous Rx's Medication Instructions Recorded norethindrone 1 mg-ethinyl 1 tab PO DAILY 84 days #168 tabs 01/31/23 estradiol 35 mcg tablet (Nortrel) hydrochlorothiazide 12.5 mg tablet 12.5 mg PO DAILY 30 days #30 tabs 08/27/23 Allergies Allergy/AdvReac Type Severity Reaction Status Date / Time No Known Allergies Allergy Verified 08/27/23 12:03 [No Known Allergies*] Review of Systems 2 Constitutional: Constitutional: Reports no additional constitutional complaints, Denies chills, Denies fever(s) and Denies night sweats Eyes: Eyes: Reports no additional eye complaints, Denies blurry vision, Denies change in vision, Denies diplopia, Denies eye discharge, Denies loss of vision and Denies eye pain ENT: Denies dizziness Comments: right sided facial pressure, numbness, and tingling Cardiovascular: Cardiovascular: Reports no additional cardiovascular complaints, Denies chest pain, Denies lightheadedness, Denies Loss of Consciousness and Denies dyspnea Respiratory: Respiratory: Reports no additional respiratory complaints and Denies dyspnea Gastrointestinal: Gastrointestinal: Reports no additional gastrointestinal complaints, Denies abdominal pain, Denies melena, Denies hematochezia, Denies change in bowel habits and Denies change in stool character Genitourinary: Genitourinary: Denies hematuria, Denies urinary frequency, Denies dysuria, Denies urinary incontinence, Denies urinary hesitancy and Denies urinary urgency Musculoskeletal: Musculoskeletal: Reports no additional musculoskeletal complaints, Denies numbness and Denies tingling Neurologic: Denies dizziness, Denies loss of vision, Denies numbness and Denies tingling Psychiatric: Psychiatric: Reports no additional psychiatric complaints Endocrine: Endocrine: Reports no additional endocrine complaints Hematologic/Lymphatic: Hematologic/Lymphatic: Reports no additional hematologic/lymphatic complaints Allergic/Immunologic: Allergic/Immunologic: Reports no additional allergic/immunologic complaints PMFSH Past Medical History Attestation statement: The following information was validated with the patient. 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 Current occupational exposures/hazards: Yes Sexual orientation: Straight/Heterosexual Gender identity: Female Cognitive needs: No Hearing needs: No Vision needs: No Physical Exam ED Vital Signs: Vital Signs - 24 hr 09/04/23 09:23 09/04/23 09:28 Temperature 98.2 F Pulse Rate 89 Respiratory Rate 18 18 Blood Pressure 144/91 H Pulse Oximetry 97 Oxygen Delivery Method Room Air BMI result Body Mass Index 30.6 Const General: cooperative, no acute distress, alert and awake Nutritional Appearance: well nourished Orientation/consciousness: patient oriented x3 Limitations: no limitations HENMT Head: Yes normal to inspection and Yes atraumatic Ears: hearing grossly normal bilaterally and external ears normal General nose exam: Normal external nose present, no nasal discharge noted and no epistaxis Face and sinus: Yes normal facial exam, No abrasion and No laceration Mouth: Normal oral and palatal mucosa present, no drooling and no muffled voice Eyes General: appearance normal, both eyes and all related structures Periorbital: periorbital findings normal Eyelids: Yes eyelids normal Conjunctivae: conjunctivae normal Pupils: Equal, round and reactive pupils present EOM: EOMs intact bilaterally Neck Neck: Yes normal visual inspection, Yes full ROM and Yes no lymphadenopathy Chest Chest palpation & inspection: normal inspection of the chest Resp Effort & Inspection: normal respiratory effort and able to speak in complete sentences GI Inspection: Yes normal to inspection Neuro General: patient oriented x3 and moves all extremities Cranial nerves: Yes Equal, round and reactive pupils present Cognition (Neuro): normal cognition Motor exam (neuro): 5/5 motor strength present throughout Sensory Exam: Normal double simultaneous stimulation for sensation Coordination: [id number] test normal Extrem General: Yes normal to inspection, Yes full ROM and Yes capillary refill normal Psych Appearance: grossly normal Mental Status: mental status grossly normal Affect: normal affect Attitude: cooperative Thought process: Normal thought process present Thought content: Normal thought content present Insight: Good insight present (Psych) Medical Decision Making Medical Decision Making MDM Narrative: Patient is a 42 year old assigned female at with a history of HTN presenting to the emergency department today with right sided facial pressure, numbness, and tingling. Patient's physical exam was unremarkable. Patient's blood work was unremarkable. Patient's head, face, and c-spine CTs showed no acute process. 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 Patient's thyroid function is normal. When I explained this to the patient, she stated that she had been told something similar in the past and this is not a new finding. Patient's clinical presentation is most consistent with trigeminal neuralgia vs. paresthesias. I explained my physical exam findings as well as all test results to the patient. I answered all questions asked by the patient. I stressed the importance of the patient taking her medication as prescribed. I stressed the importance of the patient following up with her primary care provider and an ENT. I stressed the importance of the patient returning to the emergency department immediately if her symptoms were to worsen or if she were to develop any dizziness, shortness of breath, difficulty breathing, chest pain, blurry vision, loss of vision, nausea, vomiting, abdominal pain, fever, chills, back pain, or any other complaints. Patient verbalized agreement and understanding with this treatment plan and discharge. Differential Diagnosis Differential Diagnoses: The differential diagnosis associated with the presentation includes Trigeminal neuralgia Sinusitis Paresthesias Admission/Observation Consideration of admission/observation: Escalation of care including admission/observation considered Patient would have been admitted to the hospital had her work up had any findings where hospital admission was appropriate and her clinical presentation warranted hospital admission. Lab Data MDM Lab Attestation statement: I reviewed the patient's lab results. My interpretation of these studies and their corresponding values is that they are grossly normal. 09/04/23 09:37 09/04/23 09:36 Labs: Lab Results 09/04/23 09/04/23 09/04/23 Range/Units 09:36 09:37 10:02 WBC 9.5 (4.8-10.8) X10*3/uL RBC 4.72 (4.20-5.50) X10*6/uL Hgb 14.3 (12.0-16.0) g/dl Hct 40.6 (37.0-47.0) % MCV 86.0 (80.0-98.0) fL MCH 30.3 (27.0-33.0) pg MCHC 35.2 H (31.0-35.0) g/dl RDW 11.8 (11.0-16.0) % Plt Count 160 (160-400) X10*3/uL MPV 12.6 H (9.4-12.3) fL Immature Gran % (Auto) 0.2 (0.0-0.4) % Neut % (Auto) 78.2 H (45-73) % Lymph % (Auto) 16.3 L (20-40) % Shannon % (Auto) 4.8 (2-11) % Eos % (Auto) 0.4 (0-4) % Baso % (Auto) 0.1 (0-2) % Lymph # (Auto) 1.6 (1.2-4.9) X10*3/uL Shannon # (Auto) 0.5 (0.1-1.2) X10*3/uL Eos # (Auto) 0.0 (0.0-0.4) X10*3/uL Baso # (Auto) 0.0 (0.0-0.2) X10*3/uL Abs Immat Gran (auto) 0.02 (0.00-0.03) X10*3/uL Absolute Neuts (auto) 7.4 (2.0-8.3) x10*3/uL Absolute Nucleated RBC 0.000 (0.0-0.012) X10*3/uL Nucleated RBC % (auto) 0.0 (0.0-0.2) /100WBC ESR 13 (0-20) MM/HR PT 11.8 (11.1-13.3) SEC INR 1.0 (0.9-1.1) APTT 30.6 (26.0-36.8) SEC Sodium 141 (135-145) mmol/L Potassium 3.9 (3.3-5.1) mmol/L Chloride 104 (96-108) mmol/L Carbon Dioxide 26 (22-29) mmol/L Anion Gap 15 (12-20) BUN 9 (9-16) mg/dL Creatinine 0.84 (0.5-1.4) mg/dL Estim Creat Clear Calc 101.9 Estimated GFR > 60 Random Glucose 111 (60-115) mg/dL Calcium 10.0 (8.4-10.2) mg/dL Magnesium 2.0 (1.6-2.6) mg/dL Total Bilirubin 0.3 (0.0-1.0) mg/dL AST 14 (5-31) U/L ALT 13 (0-31) U/L Alkaline Phosphatase 75 (39-117) U/L C-Reactive Protein 0.56 H (< or = 0.50) mg/dL Total Protein 7.8 (6.5-8.0) g/dL Albumin 4.5 (3.5-5.0) g/dL Vitamin B12 415 (200-900) pg/mL Folate 9.5 (> or = 4.0) ng/mL TSH 1.47 (0.32-4.0) uIU/mL Influenza Type A (PCR) NEGATIVE (Negative) Influenza Type B (PCR) NEGATIVE (Negative) RSV RNA Qual (PCR) NEGATIVE (Negative) SARS-CoV-2 RNA (RT-PCR) NEGATIVE (Negative) Independent Interpretation I performed an independent interpretation of an: CT Scan Interpretation: My interpretation is in agreement with the radiologist's impression of these imaging studies. - Examination: CT brain, CT cervical spine and CT facial bones. CLINICAL INDICATION: Right-sided facial numbness/pressure. COMPARISON: None. TECHNIQUE: 5 mm thin axial and reformatted 2 mm thin sagittal and coronal images of brain were obtained. Subsequently axial 3 mm thin and reformatted 2 mm thin sagittal and coronal images of cervical spine were obtained. Lastly axial 3 mm thin and reformatted 1.5 mm thin sagittal and coronal images of facial bones were obtained. DLP 694. This CT examination was performed using dose optimization technique as appropriate, variously including the following: Automated exposure control Adjustment of MA and/or KV according to patient size(this includes techniques or standardized protocols for targeted exams where dose is matched to indication/reason for exam; extremities or head. Use of iterative reconstruction techniques. FINDINGS: BRAIN: There is no acute intra-axial, extra-axial bleed, masses, collection or midline shift. There is no acute infarction evolution. The lateral ventricles are symmetrical in size and configuration without enlargement. Bone windows reveal no calvarial abnormality. There is no scalp soft tissue abnormality. Bilateral paranasal sinuses and mastoid air cells are well-aerated. CERVICAL SPINE: There is mild straightening of cervical lordosis. The vertebral heights, and alignment is normal. There is mild loss of C4-C5, C5-C6 and C6 S1 disc levels with mild ventral and posterior spondylosis. No aggressive lytic or sclerotic process seen. There is moderate to significant right C2-C4 facet joint arthropathy and hypertrophy. The craniovertebral junction and C1-C2 alignment is normal. The prevertebral soft tissues are normal. This central trachea and the bronchi widely patent. 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 Right thyroid lobe is normal size with a hypodense nodule suspected. The lung apices are clear FACIAL BONES: The paranasal sinuses are well-aerated. The bony sinus betts, lamina papyracea and the cribriform plate is normal. Visualized optic globe, optic nerve and the bony orbits are normal. Pre and post septal orbital soft tissues are normal. There is no visible fracture involving the nasal bone. There is mild deviated nasal septum to the right with patent nasopharynx, nasal cavity and pharyngeal airway. Bilateral TM joints and the visualized mandibles are normal. No maxillofacial fractures seen. The maxillofacial soft tissues are normal. CT/CT cervical spine wo IV con IMPRESSION: No acute intracranial process seen. No acute fracture, dislocation or subluxation in cervical spine. There are degenerative disc changes and straightening of cervical lordosis likely spasm or positional. There is no maxillofacial, nasal or mandibular fracture. Dictated By: Sonido Monterroso MD Signed By: Electronically signed by Sonido Monterroso MD 09/04/23 6019 Radiology Impression Discussion of test interpretation with radiology: I have reviewed the radiologist's reading. Tests considered The following testing was considered but not selected: A CTA of the head and neck was considered however, the patient's current clinical presentation did not warrant this. I discussed this with the patient who verbalized agreement and understanding. Chronic Conditions Patient?s care impacted by: Hypertension Discharge Plan Discharge Clinical Impression: Paresthesia Patient Disposition: Home, Self-Care Instructions: Paresthesia (ED) Additional Instructions: Follow up with your primary care provider and an ENT. Return to the emergency department immediately if your symptoms worsen or if you develop any dizziness, shortness of breath, difficulty breathing, chest pain, blurry vision, loss of vision, nausea, vomiting, abdominal pain, fever, chills, back pain, or any other complaints. Prescriptions: No Action terbinafine HCl 250 mg tablet 250 mg PO DAILY Rx Instructions: By dermatology hydrochlorothiazide 12.5 mg tablet 12.5 mg PO DAILY 30 Days Qty: 30 1RF Nortrel 35 (28) 1-35 mg-mcg tablet 1 tab PO DAILY 84 Days Qty: 168 3RF Referrals: Juan Daniel Means PA-C [Primary Care Provider] - Deon Linder [Physician] - (Call to establish and follow up with an ENT.) Interventions: ED Discharge Assessment Last Done: 09/04/23 11:22 Discharge Date/Time: 09/04/23 11:25 Print Language: Armenian
[2023-09-04 09:23] VITALS: RESP 18; BMI 30.6
[2023-09-04 09:28] VITALS: BP 144/91; PULSE 89; RESP 18; TEMP 36.8; O2SAT 97
[2023-09-04 09:45] LABS: MANUAL DIFF FLAG NO
[2023-09-04 09:52] LABS: Basophils Percent Auto 0.1 % (0-2); Eosinophils Percent Auto 0.4 % (0-4); Hematocrit 40.6 % (37.0-47.0); Hemoglobin 14.3 g/dl (12.0-16.0); Imm Gran Abs Auto 0.02 X10*3/uL (0.00-0.03); Imm Gran Pct Auto 0.2 % (0.0-0.4); Lymphocytes Absolute Auto 1.6 X10*3/uL (1.2-4.9); Lymphocytes Percent Auto 16.3 % (20-40); Mean Corpuscular HGB Conc 35.2 g/dl (31.0-35.0); Mean Corpuscular Hemoglobin 30.3 pg (27.0-33.0); Mean Platelet Volume 12.6 fL (9.4-12.3); Monocytes Absolute Auto 0.5 X10*3/uL (0.1-1.2); Monocytes Percent Auto 4.8 % (2-11); Neutrophils Absolute Auto 7.4 x10*3/uL (2.0-8.3); Neutrophils Percent Auto 78.2 % (45-73); Platelet Count 160 X10*3/uL (160-400); Red Blood Count 4.72 X10*6/uL (4.20-5.50); Red Cell Distribution Width 11.8 % (11.0-16.0); White Blood Count 9.5 X10*3/uL (4.8-10.8)
[2023-09-04 09:56] LABS: Prothrombin Time 11.8 SEC (11.1-13.3)
[2023-09-04 09:59] LABS: Partial Thromboplastin Time 30.6 SEC (26.0-36.8)
[2023-09-04 10:01] LABS: Alanine Aminotransferase 13 U/L (0-31); Albumin Level 4.5 g/dL (3.5-5.0); Alkaline Phosphatase 75 U/L (39-117); Anion Gap 15 (12-20); Aspartate Amino Transferase 14 U/L (5-31); Bilirubin Total 0.3 mg/dL (0.0-1.0); Blood Urea Nitrogen 9 mg/dL (9-16); C Reactive Protein 0.56 mg/dL (< or = 0.50); Carbon Dioxide 26 mmol/L (22-29); Chloride 104 mmol/L (96-108); Creatinine Clr Calc Pharmacy 101.9; Estimated Glomerular Filt Rate > 60; Glucose Random 111 mg/dL (60-115); Potassium 3.9 mmol/L (3.3-5.1); Sodium 141 mmol/L (135-145); Total Protein 7.8 g/dL (6.5-8.0)
[2023-09-04 10:21] LABS: TSH reflex Free T4 1.47 uIU/mL (0.32-4.0)
[2023-09-04 10:34] LABS: Folate 9.5 ng/mL (> or = 4.0); Vitamin B12 415 pg/mL (200-900)
[2023-09-04 10:38] LABS: Erythrocyte Sedimentation Rate 13 MM/HR (0-20)
[2023-09-04 11:11] LABS: Influenza A PCR NEGATIVE (Negative); Influenza B PCR NEGATIVE (Negative); Resp Syncy Virus RNA Qual PCR NEGATIVE (Negative); SARS COV2 PCR INHOUSE NEGATIVE (Negative)
[2023-09-06 20:13] LABS: A. Phagocytphilium DNA,RT-PCR NOT DETECTED (NOT DETECTED); Babesia Microti DNA, RT-PCR NOT DETECTED (NOT DETECTED); Borrelia Miyamotoi,DNA RT-PCR NOT DETECTED (NOT DETECTED); E.Chaffeensis DNA RT-PCR NOT DETECTED (NOT DETECTED); Lyme(Borrelia ssp)DNA RT-PCR NOT DETECTED (NOT DETECTED)
== END 2023-09-04 11:25 | disposition home or self-care (01) ==
PROVIDERS: Physician Assistant Medical; Emergency Provider Emergency Medicine Emergency Medical Services; PCP Physician Assistant
DX: J32.9 Chronic sinusitis, unspecified (principal); R20.0 Anesthesia of skin; R51.9 Headache, unspecified; M54.2 Cervicalgia; Z11.52 Encounter for screening for COVID-19; Z20.822 Contact with and (suspected) exposure to COVID-19; Z79.899 Other long term (current) drug therapy
CPT/HCPCS: 0241U; 36415; 70450; 70486; 72125; 80053; 82607; 82746; 83735; 84443; 85025; 85610; 85652; 85730; 86140; 87468; 87469; 87478; 87484; 87798; 99282; 99284

== ENCOUNTER 2023-10-25 08:37 | Outpatient (AMB) | payer OTHER, SELFPAY ==
[2023-10-25 08:47] VITALS: BP 118/76; BMI 30.6
--- NOTE | 2023-10-25 08:47 | A.OFFVIS_ITS ---
Vital Signs 10/25/23 08:47 Height 5 ft 8 in Weight 201 lb BMI 30.6 BP 118/76 Intake Visit Reasons: bp check Ad Operations Coordinator Required: No Information Interpreted: non-clinical & clinical Customer Acquisition Manager: Customer Acquisition Manager Present (Sarah) Allergies No Known Allergies [No Known Allergies*] Allergy (Verified 10/25/23 08:56) Post menopausal: No HPI Comments Details: Patient is here for blood pressure check she is currently on hydrochlorothiazide. Taking combined OCPs. Family history of hypertension. She has loss weight and exercises. She also reports right lower pelvic discomfort after orgasm and pre menstrually. She denies any vaginal odor, irritation, or urinary symptoms. Previous abdominal pelvic CT in August of 2022 revealed a right ovarian cyst. 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 Current occupational exposures/hazards: Yes Sexual orientation: Straight/Heterosexual Gender identity: Female Cognitive needs: No Hearing needs: No Vision needs: No Female Reproductive History Menstrual Age of Menarche: 11 control method: pills Date of last pap smear: 01/30/22 (negative) Review of Systems Const All systems reviewed & are unremarkable except as noted in HPI and below Physical Exam Vital Signs: Last Vital Signs BP 118/76 10/25/23 08:47 BMI result Body Mass Index 30.6 Const General: cooperative, healthy appearing and no acute distress Orientation/consciousness: patient oriented x3 GI Inspection: Yes normal to inspection and Yes scar Palpation (GI): Soft to palpation and Other GI palpation findings present ( Nontender) Rectal Exam - Female: visual inspection normal General: Yes bladder normal to palpation External Female Exam: normal appearance of the urethra Speculum Exam - Vagina: normal appearance of the vagina, normal palpation and normal vaginal discharge Speculum Exam - Cervix: normal appearance of the cervix and normal palpation Bimanual exam- vagina & uterus: normal bimanual exam, normal palpation, uterine size normal, bladder normal to palpation, normal palpation, uterine shape normal and non-tender Bimanual Exam- Adnexa, other: normal adnexae and tender (Right side, no guarding) Neuro General: patient oriented x3 Results AMB Test Urine AMB Test Urine Negative Last Edit by Sarah Jones CMA on 09:36 AMB Urinalysis Dipstick UR Leukocytes Negative Last Edit by Sarah Jones CMA on 10/25/23 09:37 UR Nitrite Negative Last Edit by Sarah Jones, GELA on 10/25/23 09:37 UR Urobilinogen Normal Last Edit by Sarah Jones, GELA on 10/25/23 09:37 UR Protein Negative Last Edit by Sarah Jones, GELA on 10/25/23 09:37 UR Ph 6.0 Last Edit by Sarah Jones, GELA on 10/25/23 09:37 UR Blood Trace Last Edit by Sarah Jones, GELA on 10/25/23 09:37 UR Specific [place] 1.015 Last Edit by Sarah Jones, GELA on 10/25/23 09:37 UR Ketone Negative Last Edit by Sarah Jones, GELA on 10/25/23 09:37 UR Bilirubin Negative Last Edit by Sarah Jones, GELA on 10/25/23 09:37 UR Glucose Negative Last Edit by Sarah Jones CMA on 10/25/23 09:37 Assessment & Plan Assessment & Plan (1) HTN (hypertension): Code(s): I10 - Essential (primary) hypertension Category: Medical Qualifiers: Hypertension type: primary hypertension Qualified Code(s): I10 - Essential (primary) hypertension (2) Pelvic pain: Code(s): R10.2 - Pelvic and perineal pain (3) control counseling: Code(s): Z30.09 - Encounter for other general counseling and advice on contraception Plan Discussed: control options progesterone only suggested. Reviewed information per the CDC guidelines for efficacy an eligibility handouts. Akinena booklet given, she would like to explore her options at this time. Pelvic pain workup to include ultrasound, urinalysis, cervical cultures. Follow-up for results in person for plan of care and decision making for contraceptive option. Annual booked in January scheduled. All of her questions and concerns were addressed to the best of my ability. She is agreeable to the plan of care. This note is constructed using voice recognition software. While every effort has been made to ensure accuracy, electronic equipment repairmen errors may have been included. Orders: Orders US pelvic and transvaginal Today R10.2 - Pelvic and perineal pain AMB HCG Urine Test Today Z32.02 - Encounter for test, result negative AMB Urinalysis Dipstick Today R31.29 - Other microscopic hematuria Coding Level of Care Code Est Pt Level 4 (42465) Diagnoses Primary hypertension I10 Hypertension type: primary hypertension Pelvic pain R10.2 control counseling Z30.09
== END 2023-10-25 09:38 | disposition home or self-care (01) ==
PROVIDERS: PCP Physician Assistant; Visit Provider Advanced Practice Midwife
DX: I10 Essential (primary) hypertension (principal); R10.2 Pelvic and perineal pain; Z30.09 Encounter for other general counseling and advice on contraception; Z32.02 Encounter for pregnancy test, result negative; R31.29 Other microscopic hematuria
CPT/HCPCS: 99214

== ENCOUNTER 2023-10-25 08:37 | Outpatient (REF) | payer OTHER, SELFPAY ==
[2023-10-25 17:38] LABS: CT PCR NOT DETECTED (Not Detect.); NG PCR NOT DETECTED (Not Detect.)
[2023-10-26 12:04] LABS: BV Int Neg Control Negative (Negative); BV Int Pos Control Positive (Positive)
== END 2023-10-25 08:38 | disposition home or self-care (01) ==
LOC: HO.LNP 08:37
PROVIDERS: PCP Physician Assistant; Visit Provider Advanced Practice Midwife
DX: R10.2 Pelvic and perineal pain (principal); Z32.02 Encounter for pregnancy test, result negative; R31.29 Other microscopic hematuria
CPT/HCPCS: 0353U; 81002; 81025; 87086; 87480; 87510; 87660

== ENCOUNTER 2023-11-13 10:49 | Outpatient (REF) | payer OTHER, SELFPAY ==
--- NOTE | ~2023-11-13 | US_ITS ---
EXAMINATION: US PELVIS Indication: Pelvic and perineal pain EXAMINATION: Pelvic ultrasound transabdominal transvaginal. Real-time imaging by the manager statistical. Findings; The uterus is 8.7 x 3.5 x 4.6 cm. Anteverted, anteflexed. The myometrium is heterogeneous in echogenicity throughout. Endometrial thickness is poorly delineated. The manager statistical measures the endometrium at 5 mm. There is an excrescence off the fundal region of the uterus which is heterogeneous. Measures 2 x 1.4 x 2.2 cm May well represent subserosal or myometrial fibroid. The right ovary is 2 x 1.4 x 1.6 cm. Volume 2.4 mL. Adequate vascularity is not demonstrated by the manager statistical Left ovary is 2.7 x 2 x 1.4 cm. Volume 4 mL. Adequate vascularity is not demonstrated by the manager statistical Small complex cystic structure associated with the left ovary measures 1.4 x 0.7 cm may be a complex cyst. No free fluid is seen. US/US pelvic and transvaginal IMPRESSION: Exam is most remarkable for heterogeneous appearance to the uterine myometrium. Because of this the canal is not adequately defined in several areas. There is an excrescence off the fundal region which could represent a subserosal fibroid. Complex cyst associated with the left ovary. Patient should be noted that adequate arterial or venous vascularity is not demonstrated by the manager statistical in the ovaries. There is no free fluid or obvious adnexal mass
== END 2023-11-13 10:50 | disposition home or self-care (01) ==
LOC: HO.US 10:49
PROVIDERS: PCP Physician Assistant; Visit Provider Advanced Practice Midwife
DX: R10.2 Pelvic and perineal pain (principal)
CPT/HCPCS: 76830; 76856

== ENCOUNTER → 2023-12-03 14:31 | Outpatient (REF) | payer OTHER, SELFPAY ==
--- NOTE | ~2023-12-03 | XR_ITS ---
EXAMINATION: XR CHEST CLINICAL INFORMATION: Patient stated upper right back pain. COMPARISON: 09/14/2022 CT chest. 09/11/2022 x-ray chest. TECHNIQUE: 2 views of the chest were obtained. FINDINGS: There is no gross pneumothorax. S-shaped thoracolumbar scoliosis. Heart size is normal. No pleural effusion. No focal consolidation to suggest pneumonia. XR/XR chest 2V IMPRESSION: 1. No evidence of pneumonia. 2. S-shaped thoracolumbar scoliosis.
--- NOTE | 2023-12-03 14:37 | ECG_ITS ---
Test Reason : DORSALGIA Blood Pressure : / mmHG Vent. Rate : 090 BPM Atrial Rate : 090 BPM P-R Int : 136 ms QRS Dur : 074 ms QT Int : 354 ms P-R-T Axes : 063 062 050 degrees QTc Int : 433 ms Normal sinus rhythm Possible Left atrial enlargement Minimal voltage criteria for LVH, may be normal variant ( Sokolow-Quan ) Nonspecific ST abnormality Abnormal ECG When compared with ECG of 28-AUG-2023 08:45, No significant change was found Referred By: Juan Daniel Means Electronically Signed By:JAYDON DEL CID
== END ==
LOC: HO.CARD 14:31
PROVIDERS: PCP Physician Assistant; Visit Provider Physician Assistant
DX: M54.9 Dorsalgia, unspecified (principal)
CPT/HCPCS: 71046; 93005

== ENCOUNTER → 2023-12-03 14:37 | Outpatient (BNV) | payer OTHER, SELFPAY | PROVIDERS: PCP Physician Assistant; Visit Provider Internal Medicine | DX: R94.31 Abnormal electrocardiogram [ECG] [EKG] (principal) | CPT/HCPCS: 93010 ==

== ENCOUNTER 2023-12-04 12:45 | Outpatient (AMB) | payer OTHER, SELFPAY ==
[2023-12-04 12:48] VITALS: BP 130/76; BMI 30.3
--- NOTE | 2023-12-04 12:48 | A.OFFVIS_ITS ---
Vital Signs 12/04/23 12:48 Height 5 ft 8 in Weight 199 lb BMI 30.3 BP 130/76 Intake Visit Reasons: control consult( wants a different pill ) Intake Note: Would like to change control pill Sow Farm Technician Required: No Lithoduplicator Operator: Lithoduplicator Operator Present Allergies No Known Allergies [No Known Allergies*] Allergy (Verified 12/04/23 12:54) Is last menstrual period known: Yes Last menstrual period: 11/06/23 HPI Comments Details: Sarah is here today for a follow up on her control and to discuss ultrasound findings. Previously reported pain, cramps during orgasm. Currently on medication for high blood pressure. 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 Current occupational exposures/hazards: Yes Sexual orientation: Straight/Heterosexual Gender identity: Female Cognitive needs: No Hearing needs: No Vision needs: No Female Reproductive History Menstrual Age of Menarche: 11 Date of last menstrual period: 11/06/23 control method: pills Date of last pap smear: 01/30/22 (negative) Date of Mammogram: 03/29/23 Review of Systems Const All systems reviewed & are unremarkable except as noted in HPI and below Endo Reports no additional complaints Physical Exam Vital Signs: Last Vital Signs BP 130/76 12/04/23 12:48 BMI result Body Mass Index 30.3 Const General: cooperative, healthy appearing and no acute distress Psych Appearance: well kempt Attitude: cooperative Thought process: Normal thought process present Results Reviewed Results Reviewed: [address] [address] Ultrasound Report Signed Patient: Youmell,Sarah MR#: [id number] : 1980 Acct:[id number] Age/Sex: 42 / F ADM Date: 11/13/23 Loc: HO.US Attending Dr: Deisy Diego CNM Ordering Physician: Deisy Diego CNM Date of Service: 11/13/23 Procedure(s): US pelvic and transvaginal Accession Number(s): [id number] cc: Juan Daniel Means PA-C; Deisy Diego CNM~ EXAMINATION: US PELVIS Indication: Pelvic and perineal pain EXAMINATION: Pelvic ultrasound transabdominal transvaginal. Real-time imaging by the shoe laster. Findings; The uterus is 8.7 x 3.5 x 4.6 cm. Anteverted, anteflexed. The myometrium is heterogeneous in echogenicity throughout. Endometrial thickness is poorly delineated. The shoe laster measures the endometrium at 5 mm. There is an excrescence off the fundal region of the uterus which is heterogeneous. Measures 2 x 1.4 x 2.2 cm May well represent subserosal or myometrial fibroid. The right ovary is 2 x 1.4 x 1.6 cm. Volume 2.4 mL. Adequate vascularity is not demonstrated by the shoe laster Left ovary is 2.7 x 2 x 1.4 cm. Volume 4 mL. Adequate vascularity is not demonstrated by the shoe laster Small complex cystic structure associated with the left ovary measures 1.4 x 0.7 cm may be a complex cyst. No free fluid is seen. US/US pelvic and transvaginal IMPRESSION: Exam is most remarkable for heterogeneous appearance to the uterine myometrium. Because of this the canal is not adequately defined in several areas. There is an excrescence off the fundal region which could represent a subserosal fibroid. Complex cyst associated with the left ovary. Patient should be noted that adequate arterial or venous vascularity is not demonstrated by the shoe laster in the ovaries. There is no free fluid or obvious adnexal mass Dictated By: Alexander Goode MD Signed By: <Electronically signed by Alexander Goode MD in OV> 11/13/23 1248 DD/ 1108 TD/TT: Clinical Molecular Geneticist: GT Assessment & Plan Assessment & Plan (1) Complex ovarian cyst: Code(s): N83.299 - Other ovarian cyst, unspecified side Category: Medical (2) Encounter to discuss test results: Code(s): Z71.2 - Person consulting for explanation of examination or test findings (3) Contraceptive management: Code(s): Z30.9 - Encounter for contraceptive management, unspecified (4) Uterine fibroid: Code(s): D25.9 - Leiomyoma of uterus, unspecified Plan Discussed: Contraceptive options to include progesterone only for now: Interested in progesterone only pills or Mirena IUD. Counseled risks benefits for both and reviewed the [facility] efficacy chart. Has decided to use the Mirena IUD is due for her cycle next week and will scheduled for appointment next week for insertion. Anticipatory guidance reviewed use of ibuprofen 3 tablets with food 1 hour before her insertion appointment. Reviewed procedure planning. Complex ovarian cyst: Counseled regarding findings of: Complex ovarian cyst, which is often benign, and most resolve on their own overtime. Some develop into premalignant or malignant tumors. Further monitoring and evaluation is recommended with US, possible CT, or MRI study. If persists, or is indicated (Ca-125, Carbohydrate Antigen 19-9, & Carcinoembryonic Antigen) labs will be ordered and referral to [facility] or general gynecology for MD care if indicated for possible surgical consult. Follow up in person for test results. Counseled re: Leiomyoma: common pelvic neoplasm. Differential diagnosis-may include leiomyosarcoma which is a rare uterine sarcoma 3-7/100,000, difficult to distinguish from fibroids on ultrasound from uterine sarcoma's. Unlikely any single test will have a highly positive predictive value. Hysterectomy is not recommended for sole purpose of excluding malignant neoplasm. Report any PMB/AUB. Pelvic pressure, bloating, or pain. Consult for surgical exploration verses expectant management offered. Patient prefers expectant management. Expectant management follow up in 6 months, then yearly for stability. Referral to MD if indicated for level of care. All of her questions and concerns were addressed to the best of my ability and shared decision making. She is agreeable to the plan of care. This note is constructed using voice recognition software. While every effort has been made to ensure accuracy, hand woven carpet and rug mender errors may have been included. Orders: Orders US pelvic and transvaginal 01/23/24 D21.9 - Benign neoplasm of connective and other soft tissue, unspecified, N83.299 - Other ovarian cyst, unspecified side Medications: Discontinued norethindrone-ethin estradiol 1-35 mg-mcg (Nortrel) Discontinued Reason: No Longer Medically Relevant 1 tab PO DAILY 84 days 168 tabs 3RF Coding Level of Care Code Est Pt Level 3 (51939) Diagnoses Complex ovarian cyst N83.299 Encounter to discuss test results Z71.2 Contraceptive management Z30.9 Uterine fibroid D25.9
== END 2023-12-04 14:21 | disposition home or self-care (01) ==
PROVIDERS: PCP Physician Assistant; Visit Provider Advanced Practice Midwife
DX: N83.299 Other ovarian cyst, unspecified side (principal); Z71.2 Person consulting for explanation of examination or test findings; Z30.9 Encounter for contraceptive management, unspecified; D25.9 Leiomyoma of uterus, unspecified
CPT/HCPCS: 99213

== ENCOUNTER → 2023-12-04 12:45 | Outpatient (BNVA) | payer OTHER, SELFPAY | PROVIDERS: PCP Physician Assistant; Visit Provider Advanced Practice Midwife ==

== ENCOUNTER 2023-12-12 09:26 | Outpatient (AMB) | payer OTHER, SELFPAY ==
[2023-12-12 09:35] VITALS: BP 130/78; BMI 30.4
--- NOTE | 2023-12-12 09:35 | A.OFFVIS_ITS ---
Vital Signs 12/12/23 09:35 Height 5 ft 8 in Weight 200 lb BMI 30.4 BP 130/78 Blood Pressure Location Rt brachial Position Sitting Intake Visit Reasons: Mirena insertion Allergies No Known Allergies [No Known Allergies*] Allergy (Verified 12/12/23 09:36) HPI Comments Details: The patient is here today for a Mirena IUD insertion. History of recent hypertension diagnosis and is transitioning off control pills. She was counseled on the side effects including: menstrual cycle changes, pain, infection, bleeding, or expulsion. Risks of injury to the vagina, cervix, uterus, tubes, ovaries, bowel, bladder, and any adjacent tissue, resulting in nerve damage, scarring, and pain. Risks complications for the procedure that may require other test including ultrasounds, Xray, CT or MRI scan, surgery, anesthesia, blood transfusion. A urine test was completed and was negative. She was consented for the IUD insertion and has signed the consent form. All questions were answered. 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 Current occupational exposures/hazards: Yes Sexual orientation: Straight/Heterosexual Gender identity: Female Cognitive needs: No Hearing needs: No Vision needs: No Female Reproductive History Menstrual Age of Menarche: 11 control method: progestin IUCD (Mirena IUD 12/12/2023) Review of Systems Const All systems reviewed & are unremarkable except as noted in HPI and below Physical Exam Vital Signs: Last Vital Signs BP 130/78 12/12/23 09:35 BMI result Body Mass Index 30.4 Const General: cooperative, healthy appearing and no acute distress Orientation/consciousness: patient oriented x3 GI Inspection: Yes normal to inspection Palpation (GI): Soft to palpation and Other GI palpation findings present (Nontender) Rectal Exam - Female: visual inspection normal General: Yes bladder normal to palpation External Female Exam: normal appearance of the urethra Speculum Exam - Vagina: normal appearance of the vagina, normal palpation, normal vaginal discharge and vaginal bleeding Speculum Exam - Cervix: normal appearance of the cervix and normal palpation Bimanual exam- vagina & uterus: normal bimanual exam, normal palpation, uterine size normal, bladder normal to palpation, normal palpation, uterine shape normal and non-tender Bimanual Exam- Adnexa, other: normal adnexae OB/external & speculum: vaginal bleeding Neuro General: patient oriented x3 Office Procedures Contraception Insert/Removal Details Details: The patient is here today for a Mirena IUD insertion. She was counseled on the side effects including: menstrual cycle changes, pain, infection, bleeding, or expulsion. Risks of injury to the vagina, cervix, uterus, tubes, ovaries, bowel, bladder, and any adjacent tissue, resulting in nerve damage, scarring, and pain. Risks complications for the procedure that may require other test including ultrasounds, Xray, CT or MRI scan, surgery, anesthesia, blood transfusion. A urine test was completed and was negative. She was consented for the IUD insertion and has signed the consent form. All questions were answered. IUD Insertion: The patient was placed in the dorsal lithotomy position and a sterile speculum was inserted. The procedure was completed under aseptic technique. The cervix was cleansed with a Betadine solution x 3 swabs. A single toothed tenaculum was applied to the cervix for stabilization, and the uterus was sounded to 8 cm. The device was inserted and released with a gentle motion. Bleeding from the tenaculum sites and the procedure were minimal. The strings were trimmed to 3cm. All of the equipment was removed and the bimanual was normal, no tip was palpable at the cervical os. The patient tolerated the procedure well and left the office in good condition. Post IUD Insertion Care: There may be some post insertion bleeding for several days that is usually light and can turn to a light brown or pink in color. Mild cramping may occur. Nothing in the vagina including: tampons, douching or intimacy for several days. You may take an over the counter mild analgesia like Tylenol or Advil (if no allergies), per the manufacturers recommendations on dosing and frequency. Follow the directions completely. Call the office if any: fever (over 100.4), flu like symptoms, abdominal pain, worsening cramping not resolved with over the counter medications, foul smelling vaginal odor, signs of infected appearing discharge, or heavy bleeding. Use a condom for a back up method if indicated for 7 days. Always use a condom for STI prevention; IUD's are not protective against STD's. Return to the office in 4-6 weeks for IUD recheck. This note is constructed using voice recognition software. While every effort has been made to ensure accuracy, utilization supervisor errors may have been included. 81001 - Insertion Results AMB Test Urine AMB Test Urine Negative Last Edit by Juanita Wallace CMA on 12/12/23 09:45 Results Reviewed Results Reviewed: Laboratory Last Values [facility]st Clinic Negative 12/12/23 09:44 Assessment & Plan Assessment & Plan (1) Encounter for insertion of mirena IUD: Code(s): Z30.430 - Encounter for insertion of intrauterine contraceptive device Plan See procedure notes. Follow up annual exam to include IUD check and ultrasound follow up for complex ovarian cyst same visit 30 minute appointment, the patient is to be made. Orders: Orders AMB HCG Urine Test Today Z32.02 - Encounter for test, result negative Coding Level of Care Code Procedure Only Diagnoses Encounter for insertion of mirena IUD Z30.430 CPT Codes Details - Contraception: 94756 - Insertion ([id number])
== END 2023-12-12 10:13 | disposition home or self-care (01) ==
LOC: HO.HWS 09:26
PROVIDERS: PCP Physician Assistant; Visit Provider Advanced Practice Midwife
DX: Z30.430 Encounter for insertion of intrauterine contraceptive device (principal); Z32.02 Encounter for pregnancy test, result negative
CPT/HCPCS: 58300

== ENCOUNTER → 2023-12-12 09:26 | Outpatient (BNVA) | payer OTHER, SELFPAY | PROVIDERS: PCP Physician Assistant; Visit Provider Advanced Practice Midwife | DX: Z30.430 Encounter for insertion of intrauterine contraceptive device (principal) | CPT/HCPCS: 58300; 81025; J7298 ==

== ENCOUNTER 2024-01-27 11:28 | Outpatient (REF) | payer OTHER, SELFPAY ==
--- NOTE | ~2024-01-27 | US_ITS ---
EXAMINATION: US PELVIS CLINICAL INFORMATION: Other ovarian cysts, unspecified side LMP 01/06/2024 COMPARISON: Pelvic ultrasound 11/13/2023 TECHNIQUE: Ultrasound of the pelvis is performed using both transabdominal and transvaginal transducers along with Doppler. Transvaginal imaging is performed due to inadequate visualization transabdominally. FINDINGS: Uterus: The uterus is anteverted and measures 8.8 x 4.1 x 5.5 cm. New 0.6 x 0.9 x 0.6 cm intramural fibroid is seen in the posterior body of the uterus. 2.1 x 1.1 x 2.1 cm fundal subserosal fibroid is without significant change. The endometrial thickness is 0.6 cm. The IUD is in satisfactory position. Adnexa: Both ovaries are visualized. There is normal color flow to the adnexa. There is no ovarian torsion. There is no pelvic ascites or fluid collection. Right ovary measures 2.7 x 1.2 x 1.3 cm. No significant finding. Left ovary measures 3.8 x 2.8 x 1.6 cm. Volume 8.9 mL. No significant finding. US/US pelvic and transvaginal IMPRESSION: 1. New 0.9 cm intramural fibroid in the posterior body of the uterus. 2. No significant change in 2.1 cm fundal subserosal fibroid. 3. The IUD is in satisfactory position. 4. Normal ovaries.
== END 2024-01-27 11:29 | disposition home or self-care (01) ==
LOC: HO.US 11:28
PROVIDERS: PCP Physician Assistant; Visit Provider Advanced Practice Midwife
DX: N83.299 Other ovarian cyst, unspecified side (principal); D21.9 Benign neoplasm of connective and other soft tissue, unspecified
CPT/HCPCS: 76830; 76856

== ENCOUNTER 2024-02-11 09:56 | Outpatient (AMB) | payer OTHER, SELFPAY ==
--- NOTE | 2024-02-11 10:03 | A.OFFVIS_ITS ---
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 She tries to eat healthy and stays active with exercise, recently has lost weight with changes. Currently is sexually active. She denies vaginal itching and irritation. Denies family history of breast, ovarian or colon cancer. Last pap smear 2021, negative. Mammogram: 2022. 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 Current occupational exposures/hazards: Yes Sexual orientation: Straight/Heterosexual Gender identity: Female Cognitive needs: No Hearing needs: No Vision needs: No Female Reproductive History Menstrual Age of Menarche: 11 Duration of menses: 6-7 days Date of last menstrual period: 01/31/24 control method: progestin IUCD (Mirena 12/12/23) Total pregnancies: 2 Full term: 2 Number of Living Children: 2 Date of last pap smear: 01/29/22 (neg pap and hpv) Date of Mammogram: 03/29/23 (Birad 1) Review of Systems Const All systems reviewed & are unremarkable except as noted in HPI and below Reports as per HPI Eyes Reports no additional complaints ENT Reports no additional complaints Card Reports no additional complaints Resp Reports no additional complaints GI Reports as per HPI and Reports no additional complaints Reports as per HPI Musc Reports no additional complaints Skin/Breast Reports as per HPI Neuro Reports no additional complaints Psych Reports no additional complaints Endo Reports no additional complaints Noe/Lymph Reports no additional complaints Aller/Immun Reports no additional complaints Physical Exam Vital Signs: Last Vital Signs BP 110/64 02/11/24 10:04 BMI result Body Mass Index 29.0 Const General: cooperative, healthy appearing, no acute distress, well developed and alert Orientation/consciousness: patient oriented x3 HEENT Head: Yes normal to inspection Eyes General: appearance normal, both eyes and all related structures Neck Neck: Yes normal visual inspection Thyroid: Thyroid normal Chest Chest palpation & inspection: normal inspection of the chest and other (no p uckering, dimpling, peau de orange, retraction, discharge, masses) Breast/axilla inspection: normal inspection of the breasts Breast/axilla palpation: normal palpation of the breasts Resp Effort & Inspection: normal respiratory effort GI Inspection: Yes normal to inspection Palpation (GI): Soft to palpation Rectal Exam - Female: deferred General: Yes bladder normal to palpation External Female Exam: normal external appearance and normal appearance of the urethra Speculum Exam - Vagina: normal appearance of the vagina, normal palpation, normal vaginal discharge and vaginal bleeding (Small amount of mucus in brown blood) Speculum Exam - Cervix: normal appearance of the cervix, normal palpation and Other cervical findings present (IUD strings at the os) Bimanual exam- vagina & uterus: normal bimanual exam, normal palpation, uterine size normal, bladder normal to palpation, normal palpation and non-tender Bimanual Exam- Adnexa, other: no masses OB/external & speculum: vaginal bleeding (Small amount of mucus in brown blood) Skin General skin exam: no rashes or lesions noted Rashes: no rashes Neuro General: patient oriented x3 Cognition (Neuro): normal cognition Extrem General: Yes normal to inspection Psych Attitude: cooperative Thought process: Normal thought process present Results Reviewed Results Reviewed: [address] [address] Ultrasound Report Signed Patient: Sarah Brown MR#: [id number] : 1980 Acct:[id number] Age/Sex: 43 / F ADM Date: 01/27/24 Loc: HO.US Attending Dr: Deisy Diego CNM Ordering Physician: Deisy Diego CNM Date of Service: 01/27/24 Procedure(s): US pelvic and transvaginal Accession Number(s): [id number] cc: Juan Daniel Means PA-C; Deisy Diego CNM~ EXAMINATION: US PELVIS CLINICAL INFORMATION: Other ovarian cysts, unspecified side LMP 01/06/2024 COMPARISON: Pelvic ultrasound 11/13/2023 TECHNIQUE: Ultrasound of the pelvis is performed using both transabdominal and transvaginal transducers along with Doppler. Transvaginal imaging is performed due to inadequate visualization transabdominally. FINDINGS: Uterus: The uterus is anteverted and measures 8.8 x 4.1 x 5.5 cm. New 0.6 x 0.9 x 0.6 cm intramural fibroid is seen in the posterior body of the uterus. 2.1 x 1.1 x 2.1 cm fundal subserosal fibroid is without significant change. The endometrial thickness is 0.6 cm. The IUD is in satisfactory position. Adnexa: Both ovaries are visualized. There is normal color flow to the adnexa. There is no ovarian torsion. There is no pelvic ascites or fluid collection. Right ovary measures 2.7 x 1.2 x 1.3 cm. No significant finding. Left ovary measures 3.8 x 2.8 x 1.6 cm. Volume 8.9 mL. No significant finding. US/US pelvic and transvaginal IMPRESSION: 1. New 0.9 cm intramural fibroid in the posterior body of the uterus. 2. No significant change in 2.1 cm fundal subserosal fibroid. 3. The IUD is in satisfactory position. 4. Normal ovaries. Dictated By: Maame Gale MD Signed By: <Electronically signed by Maame Gale MD in OV> 02/10/24 [id number] DD/ 1209 TD/TT: Christmas Bell Ringer: Assessment & Plan Assessment & Plan (1) Encounter for well woman exam with routine gynecological exam: Code(s): Z01.419 - Encounter for gynecological examination (general) (routine) without abnormal findings Category: Medical (2) IUD surveillance: Code(s): Z30.431 - Encounter for routine checking of intrauterine contraceptive device Plan Discussed: Current recommendations for pap smears per ASCCP guidelines. Breast awareness and periodic breast exams. Maintain a healthy lifestyle including a well balanced diet and routine exercise. Mammogram yearly. Order placed, appointment booked. Monitor bleeding. Normal bleeding transition with IUD. Ultrasound findings-fibroids, 1 stable 1 new. IUD in good position. Complex ovarian cyst has resolved. Counseled re: Leiomyoma: common pelvic neoplasm. Differential diagnosis-may include but not limited to- leiomyosarcoma which is a rare uterine sarcoma 3- 7/100,000, difficult to distinguish from fibroids on ultrasound from uterine sarcoma's. Unlikely any single test will have a highly positive predictive value. Hysterectomy is not recommended for sole purpose of excluding malignant neoplasm. Expectant management follow up in 6 months, then yearly for stability. Follow up ultrasound results in 6 months. Report any AUB. Pelvic pressure, bloating, or pain. Referral to MD if indicated for level of care if indicated. Patient verbalizes understanding and agrees to the plan of care. She was given opportunity to ask questions and all questions were answered to the best of my ability. RTO in one year for annual accounting system expert examination. This note is constructed using voice recognition software. While every effort has been made to ensure accuracy, restaurant service manager errors may have been included. Orders: Orders MM tomosynthesis screening BI Today Z12.31 - Encounter for screening mammogram for malignant neoplasm of breast US pelvic and transvaginal 07/13/24 D21.9 - Benign neoplasm of connective and other soft tissue, unspecified Coding Level of Care Code Est Pt Prev Care 40-64y(40130) Diagnoses Encounter for well woman exam with routine gynecological exam Z01.419 IUD surveillance Z30.431
[2024-02-11 10:04] VITALS: BP 110/64; BMI 29.0
== END 2024-02-11 10:50 | disposition home or self-care (01) ==
PROVIDERS: PCP Hospitalist; Visit Provider Advanced Practice Midwife
DX: Z01.419 Encounter for gynecological examination (general) (routine) without abnormal findings (principal); Z30.431 Encounter for routine checking of intrauterine contraceptive device
CPT/HCPCS: 99396

== ENCOUNTER → 2024-02-11 09:56 | Outpatient (BNVA) | payer OTHER, SELFPAY | PROVIDERS: PCP Hospitalist; Visit Provider Advanced Practice Midwife ==

== ENCOUNTER 2024-02-22 14:04 | Emergency (ER) | payer OTHER, SELFPAY ==
[2024-02-22 14:07] VITALS: BP 153/87; PULSE 76; RESP 16; TEMP 36.5; O2SAT 99; BMI 26.6
--- NOTE | 2024-02-22 14:08 | ED_ITS ---
HPI - Skin/Abscess/Foreign Bdy General Chief complaint: Wound/Laceration Stated complaint: l thumb lac Time Seen by Provider: 02/22/24 14:18 Source: patient Mode of arrival: ambulatory Limitations: no limitations History of Present Illness HPI narrative: Patient is a 43-year-old female who presents emergency department for evaluation of an accidental laceration to the distal tip on the palmar aspect of the left t humb. She is right-hand dominant. Was washing dishes and sustained accidental laceration from a knife. Unaware of the date of last tetanus vaccination. Denies use of anticoagulants. Related Data Home Medications ?Medication ?Instructions ?Recorded ?Confirmed terbinafine HCl 250 mg tablet 250 mg PO DAILY 06/25/23 08/27/23 Previous Rx's ?Medication ?Instructions ?Recorded hydrochlorothiazide 12.5 mg tablet 12.5 mg PO DAILY 30 days #30 tabs 12/20/23 Allergies Allergy/AdvReac Type Severity Reaction Status Date / Time No Known Allergies Allergy Verified 02/22/24 14:07 [No Known Allergies*] Review of Systems Review of Systems: Yes all other systems are reviewed and are negative PMFSH Past Medical History Attestation statement: The following information was validated with the patient. Source: old records reviewed Medical History IUD (intrauterine device) in place Fibroids Renal stones Anal fissure Surgical History History of section Family History Family History Father Prostate cancer Connective tissue disease Mother Hypertension Diabetes Social History Social History Housing: House Alcohol intake: current Alcohol intake frequency: holidays/special occasions only Patient Tobacco Use Status: Never used Tobacco e-Cigarette/Vaping Use: Never Used Second Hand Smoke Exposure: No Advance Directives: No Advance Directives Information Provided: No Do you have a plan to hurt others: No Plan service: No Current occupational status: employed 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 No acute distress.?Normal affect.? Neck: Normal inspection.? Neck supple.?? CVS: Heart sounds normal. Normal heart rate and rhythm.? Pulses normal.?? Respiratory: No respiratory distress.? Lung sounds clear to auscultation bilaterally?? Skin: Skin warm and dry.? Normal skin color.? 1 cm flap laceration to distal tip of the left thumb palmar aspect. Bleeding controlled? Extremities: Full range of motion to left thumb Neuro: Moves all extremities spontaneously. Sensation intact bilaterally. . Ambulates with normal steady gait. Medications Administered Discontinued Medications Generic Name Dose Route Start Last Admin Trade Name Freq PRN Reason Stop Dose Admin Diphtheria/Tetanus/Acell Pertussis 0.5 ml 02/22/24 14:09 02/22/24 14:16 Diphth,Pertus(Acell),Tet Adult 0.5 Ml Syringe IM 02/22/24 14:10 0.5 ml .ONCE ONE Administration Lidocaine HCl 5 ml 02/22/24 14:09 02/22/24 14:16 Lidocaine Hcl 1 % Mpf 5 Ml Vial SUBCUT 02/22/24 14:10 5 ml ONCE ONE Administration Medical Decision Making Medical Decision Making MDM Narrative: Patient is a 43 old female presents emergency department for evaluation of lace ration to the left thumb as per HPI physical exam portion of this note. Overall well-appearing. Full range of motion to the digit unlikely to have acute osseous involvement. Suspect less likely to have acute retained foreign body given mechanism of injury. XR imaging deferred at this time. Repaired under aseptic technique as per procedural portion of this note. Discussed strict return precautions, monitoring for signs of infection. Tdap was updated. Discussed removal of sutures and appropriate care. All questions answered. Stable for discharge Differential Diagnosis Differential Diagnoses: The differential diagnosis associated with the presentation includes (See narrative above) Independent Historian Clinical information obtained from an independent historian. History obtained from or confirmed by: Other (Daughter) External Record Review External record reviewed: Outpatient record Tests considered The following testing was considered but not selected: XR considered, see narrative above Prescription Management I considered prescription management with: Pain Medication (Acetaminophen/ibuprofen) Procedures Laceration Laceration 1: Site: hand Side (If applicable): left Size (cm): 1 Description: flap Depth: simple, single layer Local Anesthetic: lidocaine 1% Amount of anesthesia used (mL): 2 Pre-repair: wound explored, irrigated extensively and deep structures intact Skin layer closed with: nylon Size (cm): 5-0 Number of sutures: 4 Technique: simple, interrupted Discharge Plan Discharge Clinical Impression: Finger laceration Qualifiers: Encounter type: initial encounter Finger: thumb Damage to nail status: without damage Foreign body presence: without foreign body Laterality: left Qualified Code(s): S61.012A - Laceration without foreign body of left thumb without damage to nail, initial encounter Patient Disposition: Home, Self-Care Instructions: Finger Laceration (ED) Additional Instructions: You may clean the area gently slowly with warm water and mild non scented soap over the next 2 days, dry the area afterwards, otherwise should remain dry until removed. Avoid prolonged soaking in water such as swimming, soaking in the bath. 4 Sutures will need to be removed in 10-14 days, you may return back to emergency department or follow-up with your primary care doctor for removal Tetanus vaccine was updated today Return with any new or worsening symptoms or concerns such as increasing pain, redness, swelling, pus-like discharge, fevers or chills. Prescriptions: No Action hydrochlorothiazide 12.5 mg tablet 12.5 mg PO DAILY 30 Days Qty: 30 1RF terbinafine HCl 250 mg tablet 250 mg PO DAILY Rx Instructions: By dermatology Print Language: Yi
[2024-02-22] MEDS: Lidocaine HCl 1 % MPF 5 ML VIAL SUBCUT (14:16)
[2024-02-22] MEDS: Diphth,Pertus(ACell),Tet Adult 0.5 ML SYRINGE IM (14:16)
[2024-02-22 14:51] VITALS: BP 153/87; PULSE 76; RESP 16; TEMP 36.5; O2SAT 99
== END 2024-02-22 14:52 | disposition home or self-care (01) ==
PROVIDERS: Emergency Provider Emergency Medicine; PCP Physician Assistant
DX: S61.012A Laceration without foreign body of left thumb without damage to nail, initial encounter (principal); W26.0XXA Contact with knife, initial encounter; Y93.G1 Activity, food preparation and clean up; Y92.010 Kitchen of single-family (private) house as the place of occurrence of the external cause; Y99.9 Unspecified external cause status; Z23 Encounter for immunization
CPT/HCPCS: 12001; 90471; 90715; 99282; 99284

== ENCOUNTER 2024-03-02 09:50 | Outpatient (AMB) | payer OTHER, SELFPAY ==
[2024-03-02 09:51] VITALS: BP 116/78; PULSE 74; O2SAT 98; BMI 28.9
--- NOTE | 2024-03-02 09:51 | A.OFFPC_ITS ---
Vital Signs 03/02/24 09:51 Height 5 ft 8 in Weight 190 lb 0.4 oz BMI 28.9 BP 116/78 Blood Pressure Location Lt brachial Position Sitting Pulse 74 Pulse Source Pulse Oximeter Pulse Oximetry (%) 98 Oxygen Delivery Method Room Air Intake Visit Reasons: 4 Sutures will need to be removed Tunnel Mucker Required: No Allergies No Known Allergies [No Known Allergies*] Allergy (Verified 03/02/24 09:51) Tobacco use date assessed: 06/25/23 Dental Screening Dental Screen Date: 06/25/23 HPI 4 Sutures will need to be removed HPI Details 43 year old female with past history of hypertension coming in for acute problem. Patient was seen in [facility] 02/22/2024 for accidental laceration of left thumb, sutures were placed and TDap was updated and patient was discharged home. Patient states the left thumb still has some tenderness to palpation but denies any drainage or redness of the area. Denies any fevers. 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 How often do you have a drink containing alcohol?: Monthly or less 2. How many drinks containing alcohol do you have on a typical day when you are drinking?: 1 or 2 3. How often do you have six or more drinks on one occasion?: Never Total Score: 1 GLORIA-7 AMB Questionnaire GLORIA-7 Date GLORIA - 7 assessed: 06/25/23 Source: Developed by Drs. Abdirashid Abbott, Agnes Mccrary, Richard Mera and colleagues, with an educational cornell from [employer]. Review of Systems Const Denies body aches, Denies chills and Denies fever(s) Eyes Reports no additional complaints ENT Reports no additional complaints Card Reports no additional complaints Resp Reports no additional complaints GI Reports no additional complaints Musc Details: Tenderness in the thumb Skin/Breast Details: Well healed laceration without drainage or redness Physical exam (Primary Care) Vital Signs: Last Vital Signs Pulse 74 03/02/24 09:51 BP 116/78 03/02/24 09:51 Pulse Ox 98 03/02/24 09:51 Oxygen Delivery Method Room Air 03/02/24 09:51 BMI result Body Mass Index 28.9 Tobacco/Smoking Status: Tobacco use Status Tobacco use date assessed 06/25/23 03/02/24 09:51 Patient Tobacco Use Status Never used Tobacco 03/02/24 09:51 e-Cigarette/Vaping Use Never Used 03/02/24 09:51 Thrive Assessment: Date of Thrive Assessment Date Thrive assessed 06/25/23 03/02/24 09:51 Const General: cooperative, healthy appearing, comfortable and no acute distress Orientation/consciousness: patient oriented x3 HENMT Head: Yes normocephalic Ears: hearing grossly normal bilaterally General nose exam: Normal external nose present Resp Effort & Inspection: normal respiratory effort Cardio Rate: regular rate Skin Other: 2 cm well-healed laceration of left thumb without drainage, erythema, or warmth Neuro General: patient oriented x3 Gait exam (Neuro): Normal gait present Extrem General: Yes normal to inspection, Yes full ROM and No edema Psych Affect: normal affect Attitude: cooperative Insight: Good insight present (Psych) Judgement: Good judgement present (Psych) Assessment and Plan Assessment & Plan (1) Thumb laceration: Code(s): S61.019A - Laceration without foreign body of unspecified thumb without damage to nail, initial encounter Plan: 4 sutures were successfully removed today without complication and patient tolerated procedure well. Laceration is well healed without evidence of infection. Advised patient to continue to keep the area clean and dry until laceration has completely healed and follow up if new concerns arise. Plan This note was constructed using voice recognition software. While every effort has been made to ensure accuracy and manager stone, still areas may have been included sometimes these areas may affect the content or meeting of the given symptoms. Total time spent caring for the patient today was 15 minutes. This includes time spent before the visit reviewing the chart, time spent during the visit, and time spent after the visit and documentation. Coding Level of Care Code Est Pt Level 3 (79310) Diagnoses Thumb laceration S61.019A
== END 2024-03-02 10:23 | disposition home or self-care (01) ==
PROVIDERS: PCP Physician Assistant
DX: S61.012A Laceration without foreign body of left thumb without damage to nail, initial encounter (principal); Z48.02 Encounter for removal of sutures
CPT/HCPCS: 99213

== ENCOUNTER 2024-03-19 13:54 | Outpatient (AMB) | payer OTHER, SELFPAY ==
[2024-03-19 13:59] VITALS: BP 130/78; PULSE 74; O2SAT 99; BMI 29.4
--- NOTE | 2024-03-19 13:59 | MHC.PC.OV ---
Vital Signs 03/19/24 13:59 Height 5 ft 8 in Weight 193 lb 6 oz BMI 29.4 BP 130/78 Blood Pressure Location Lt brachial Position Sitting Pulse 74 Pulse Source Pulse Oximeter Pulse Oximetry (%) 99 Oxygen Delivery Method Room Air Intake Visit Reasons: Continued facial numbness Out Of School Hours Care Worker Required: No Accompanied by: Self / Same As Patient Allergies No Known Allergies [No Known Allergies*] Allergy (Verified 03/19/24 14:06) Medication List - Last Reconciled 03/19/24 by Juan Daniel Means PA-C hydrochlorothiazide 12.5 mg PO DAILY 30 days terbinafine HCl 250 mg PO DAILY Tobacco use date assessed: 06/25/23 Dental Screening Dental Screen Date: 06/25/23 HPI Continued facial numbness HPI Details Patient is a 43-year-old female here today for follow-up visit. She has had some chronic right-sided facial numbness for the past several months. Has had CTs of her head without any intracranial pathology. She did also have CT of her neck that did show some moderate degenerative disc disease and arthritis. She did make some adjustments in her desk at work which had been helpful on reducing her upper trapezius and neck pain. She unfortunately continues to have right-sided facial numbness, tingling and burning sensation over the mandible region and right cheek. She has seen her dentist though did not have any significant dental abnormalities. She otherwise has no issues with swallowing or speaking. She maintains equal neuromuscular function to her face bilaterally. 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 Abdirashid Abbott, Agnes Mccrary, Richard Mera and colleagues, with an educational corn[place] from [employer]. Review of Systems Const Denies headache(s) Eyes Denies loss of vision ENT Denies vertigo, Denies dizziness, Denies headache(s) and Denies sore throat Card Denies chest pain, Denies leg edema and Denies lightheadedness Resp Denies cough, Denies hemoptysis and Denies wheezing GI Denies abdominal pain, Denies melena, Denies constipation, Denies diarrhea and Denies vomiting Denies urinary frequency, Denies dysuria and Denies urinary urgency Musc Denies arthralgias, Denies joint swelling, Denies numbness and Denies tingling Neuro Denies Abnormal speech present, Denies behavioral changes, Denies vertigo, Denies dizziness, Denies headache(s), Denies loss of vision, Denies memory loss, Denies numbness and Denies tingling Psych Denies anxiety, Denies behavioral changes, Denies depression, Denies memory loss and Denies panic attacks Noe/Lymph Denies easy bleeding and Denies easy bruising Aller/Immun Denies wheezing Physical exam (Primary Care) Vital Signs: Last Vital Signs Pulse 74 03/19/24 13:59 BP 130/78 03/19/24 13:59 Pulse Ox 99 03/19/24 13:59 Oxygen Delivery Method Room Air 03/19/24 13:59 BMI result Body Mass Index 29.4 Tobacco/Smoking Status: Tobacco use Status Tobacco use date assessed 06/25/23 03/19/24 14:02 Patient Tobacco Use Status Never used Tobacco 03/19/24 14:02 e-Cigarette/Vaping Use Never Used 03/19/24 14:02 Thrive Assessment: Date of Thrive Assessment Date Thrive assessed 06/25/23 03/19/24 14:02 Const General: healthy appearing, no acute distress, alert and awake Nutritional Appearance: well nourished Orientation/consciousness: oriented to person, oriented to place and oriented to time HENMT Ears: TM's normal bilaterally General nose exam: Normal nasal mucous membranes and turbinates present Face images: 1. NUMBNESS AND TINGLING IN THE AREA OUTLINED. Eyes Conjunctivae: conjunctivae normal Sclerae: sclerae normal Pupils: Equal, round and reactive pupils present Neck Neck: Yes no lymphadenopathy and Yes no JVD Thyroid: Thyroid normal Carotids: no bruits Resp Effort & Inspection: normal respiratory effort and not tachypneic Auscultation: no crackles, no rales, no rhonchi and no wheezes Cardio Rate: regular rate Rhythm: regular rhythm Heart sounds: no murmurs and normal S1 and S2 GI Palpation (GI): Soft to palpation, nontender, no hepatomegaly and no splenomegaly Auscultation: normal bowel sounds Skin General skin exam: no rashes or lesions noted and dry skin Neuro General: oriented to person, oriented to place and oriented to time Cranial nerves: Yes Equal, round and reactive pupils present Speech: No Abnormal speech present Gait exam (Neuro): Normal gait present Motor exam (neuro): no tremor noted Extrem Right upper extremity: full ROM Left upper extremity: full ROM Right lower extremity: full ROM; no edema Left lower extremity: full ROM; no edema Psych Mental Status: mental status grossly normal Speech and movement: Normal speech and movement present Affect: normal affect Attitude: cooperative Thought process: Normal thought process present Assessment and Plan Assessment & Plan (1) Facial paresthesia: Code(s): R20.2 - Paresthesia of skin Plan: Patient's numbness and tingling located in the area of the trigeminal nerve region. She has had this neuropathy for over 6 months now.. Workup has included CT of head and neck without any significant findings besides arthritis in her neck. Will send for brain MRI to evaluate for any nerve damage Orders: Orders Microalbumin, Random (w Creat) 03/19/24 I10 - Essential (primary) hypertension Complete Blood Count no Diff 03/19/24 I10 - Essential (primary) hypertension MR head/brain wo con 03/19/24 R20.2 - Paresthesia of skin Comprehensive Waldo. Panel Fast 03/19/24 I10 - Essential (primary) hypertension Coding Level of Care Code Est Pt Level 4 (07012) Diagnoses Facial paresthesia R20.2
== END 2024-03-19 14:33 | disposition home or self-care (01) ==
PROVIDERS: PCP Physician Assistant; Visit Provider Physician Assistant
DX: R20.2 Paresthesia of skin (principal)

== ENCOUNTER → 2024-03-19 13:54 | Outpatient (BNVA) | payer OTHER, SELFPAY | PROVIDERS: PCP Physician Assistant; Visit Provider Physician Assistant | DX: R20.2 Paresthesia of skin (principal) ==

== ENCOUNTER 2024-03-31 08:28 | Outpatient (REF) | payer OTHER, SELFPAY ==
--- NOTE | ~2024-03-31 | MR_ITS ---
EXAMINATION: MR BRAIN WITHOUT AND WITH CONTRAST CLINICAL INFORMATION: Patient return for 5th nerve study completion. (Postcontrast sequencing and axial 3-D SPACE sequence). Evaluate for trigeminal nerve issue or white matter demyelinating disease. Patient complaining of right face numbness and tingling. COMPARISON: Correlation made with MRI 03/31/2024, and CT head 09/04/2023. TECHNIQUE: Axial and coronal thin section fat saturated T1 postcontrast, axial and coronal full brain T1 postcontrast, and axial and coronal and coronal 3-D T2 SPACE were obtained in conjunction with prior sequences performed. 8.5 mL IV Gadavist administered. FINDINGS: -No abnormal enhancement of the 5th cranial nerves, Meckel's caves, or the major 3 branches. Specifically, no abnormalities seen involving the skull base or inferior orbital canals. -5th nerves have normal morphology and course. No vessel abutment. -No orbital floor deformities. -No abnormal intra or extra-axial contrast enhancement. -No evidence of demyelinating disease. -The 3 x 3 x 3 mm T2 hyperintense round lesion in the right anterior pituitary gland does enhance after contrast (series 15, image 14), consistent with a pituitary microadenoma. No significant mass effect of the pituitary aside from mild left deviation of the infundibulum. Suprasellar structures, and parasellar structures are normal. There are no additional changes or findings when compared with the MRI noncontrast performed 04/12/2024. MR/MR head/brain wo/w con IMPRESSION: 1. Normal appearance of the 5th nerves and its branches. No vessel abutment. 2. Enhancing 3 x 3 x 3 mm round lesion in the right anterior pituitary gland, consistent with a pituitary microadenoma. No significant mass effect upon the parasellar or suprasellar structures. 3. There are a few bilateral scattered foci of punctate and minimally confluent white matter T2 hyperintensity in the supratentorial periventricular, subcortical, and hemispheric deep white matter. No distribution or morphology specific to demyelinating disease. 4. No additional abnormal intra or extra-axial contrast enhancement. Electronically signed by: Rashard Wilkins MD 04/17/2024 09:27 AM EDT
--- NOTE | ~2024-03-31 | MR_ITS ---
EXAMINATION: MR BRAIN WITHOUT CONTRAST CLINICAL INFORMATION: Chronic right facial numbness and burning sensation. Trigeminal protocol brain MRI. COMPARISON: No prior MRI available. Correlation made with CT head 09/04/2023. TECHNIQUE: MRI of the brain was obtained using trigeminal protocol sequences (axial and coronal thin section T2 sequences, as well as a sagittal FLAIR sequence) and standard sequences without contrast. Examination was performed on a 1.5 Monica Siemens magnet. Please note, patient is to return for postcontrast sequences. The patient is to return for postcontrast imaging. FINDINGS: There is no diffusion restriction. There is no intracranial hemorrhage, acute infarction, mass effect, or edema. Ventricles, sulci, and cisterns are normal in size and configuration for patient age. No shift of midline. No abnormal hemosiderin deposition is identified. There are a few scattered tiny punctate foci of white matter T2 hyperintensity in the periventricular, subcortical, and hemispheric deep white matter, nonspecific, but most likely related to trace small vessel ischemic changes. Midline structures appear normally formed. The pituitary gland demonstrates a 3 x 3 x 3 T2 hyperintense cystic focus in the right anterior gland (series 10, image 27). There is mild deviation of the infundibulum to the left. 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 Posterior fossa structures appear normal. Cerebellar tonsils are appropriately located. Major flow voids are preserved within the skull base. Basal cisterns are patent. The 5th cranial nerves are normal in course, caliber, and signal involving the cisternal segments and origin, and there is normal CSF signal and Meckel's caves bilaterally. Major cranial nerves are normal in course and caliber. The globes and orbital contents demonstrate no abnormalities. Inferior orbital canals demonstrate normal course, and signal. Paranasal sinuses are clear bilaterally. Nasal septum is mildly deviated to the right without spurring. The mastoids and tympanic cavities are normally aerated. Extracranial soft tissues demonstrate no abnormalities. No suspicious bone marrow changes are evident. Atlantoaxial joint is normal. MR/MR head/brain wo con IMPRESSION: 1. No imaging abnormality of the 5th nerves, basal cisterns, Meckel's caves, or major visual skull base branches of the V1, V2, and V3. The patient is to return for a 3-D axial SPACE sequences through the posterior fossa and 5th nerves, as well as thin section postcontrast sequences. Please refer to the subsequent report. 2. 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 This will be further evaluated on postcontrast sequences. 3. Otherwise, normal noncontrast MRI of the brain. 2. Additional ancillary findings as detailed. Electronically signed by: Rashard Wilkins MD 04/16/2024 05:08 PM EDT
[2024-04-10] MEDS: gadobutroL 10 ML VIAL IVPUSH (15:16)
== END 2024-03-31 08:29 | disposition home or self-care (01) ==
LOC: HO.MRI 08:28
PROVIDERS: Visit Provider Physician Assistant
DX: R20.2 Paresthesia of skin (principal)
CPT/HCPCS: 70551

== ENCOUNTER → 2024-03-31 08:30 | Outpatient (BNV) | payer OTHER, SELFPAY | PROVIDERS: Visit Provider Radiology Diagnostic Radiology | DX: R20.2 Paresthesia of skin (principal) | CPT/HCPCS: 70551 ==

== ENCOUNTER 2024-04-10 09:49 | Outpatient (REF) | payer OTHER, SELFPAY ==
--- NOTE | ~2024-04-10 | MM_ITS ---
EXAMINATION: MM SCREENING DIGITAL BREAST TOMOSYNTHESIS, BILATERAL CLINICAL INFORMATION: Screening. Asymptomatic. COMPARISON: Mammography: Comparison is made with available priors TECHNIQUE: Digital breast mammography with tomosynthesis is performed in both the craniocaudal and mediolateral oblique views along with computer-aided detection (CAD). FINDINGS: There are scattered areas of fibroglandular density (ACR BI-RADS breast composition Category b). There are no significant masses, abnormal calcifications, or other abnormalities. MM/MM tomosynthesis screening BI IMPRESSION: No mammographic evidence of malignancy. ASSESSMENT: BI-RADS BI-RADS 1 - Negative RECOMMENDATION: Routine annual mammography screening. 1 year F/U This examination should not preclude the clinical evaluation of a suspicious palpable abnormality. This patient's information was entered into a reminder system with a target due date for their next mammogram. Electronically signed by: Gissell Cartagena DO 04/21/2024 02:46 PM EDT
== END 2024-04-10 09:50 | disposition home or self-care (01) ==
LOC: HO.MAMMO 09:49
PROVIDERS: Absent Provider Advanced Practice Midwife; PCP Physician Assistant; Visit Provider Physician Assistant
DX: Z12.31 Encounter for screening mammogram for malignant neoplasm of breast (principal)
CPT/HCPCS: 77063; 77067

== ENCOUNTER → 2024-04-10 14:19 | Outpatient (BNV) | payer OTHER, SELFPAY | PROVIDERS: Visit Provider Radiology Diagnostic Radiology | DX: R20.2 Paresthesia of skin (principal) | CPT/HCPCS: 70553; 77063; 77067 ==

== ENCOUNTER 2024-04-10 14:25 | Outpatient (REF) | payer OTHER, SELFPAY | END 2024-04-10 14:26 | disposition home or self-care (01) | LOC: HO.MRI 14:25 | PROVIDERS: PCP Physician Assistant; Visit Provider Physician Assistant | DX: R20.2 Paresthesia of skin (principal) | CPT/HCPCS: 70553; A9585 ==

== ENCOUNTER 2024-06-25 08:25 | Outpatient (REF) | payer OTHER, SELFPAY ==
[2024-06-25 09:09] LABS: Hemoglobin 13.7 g/dl (12.0-16.0); Mean Corpuscular HGB Conc 34.3 g/dl (31.0-35.0); Mean Corpuscular Hemoglobin 30.8 pg (27.0-33.0); Mean Corpuscular Volume 89.9 fL (80.0-98.0); Mean Platelet Volume 12.3 fL (9.4-12.3); Platelet Count 176 X10*3/uL (160-400); Red Blood Count 4.45 X10*6/uL (4.20-5.50); Red Cell Distribution Width 12.1 % (11.0-16.0); White Blood Count 6.6 X10*3/uL (4.8-10.8)
[2024-06-25 09:36] LABS: Alanine Aminotransferase 30 U/L (0-31); Albumin Level 4.3 g/dL (3.5-5.0); Alkaline Phosphatase 77 U/L (39-117); Anion Gap 11 (12-20); Aspartate Amino Transferase 47 U/L (5-31); Bilirubin Total 0.6 mg/dL (0.0-1.0); Blood Urea Nitrogen 11 mg/dL (9-16); Calcium 9.2 mg/dL (8.4-10.2); Carbon Dioxide 27 mmol/L (22-29); Chloride 105 mmol/L (96-108); Estimated Glomerular Filt Rate > 60; Glucose Fasting 83 mg/dL (60-99); Potassium 4.2 mmol/L (3.3-5.1); Sodium 139 mmol/L (135-145); Total Protein 7.2 g/dL (6.5-8.0)
[2024-06-25 13:48] LABS: Creatinine Urine 39.22 mg/dL; Microalbum/Creatinine Ratio Ur 12.7 ug/mg cr (<30)
[2024-06-26 20:13] LABS: Prolactin 13.7 ng/mL
== END 2024-06-25 08:26 | disposition home or self-care (01) ==
LOC: HO.LAB 08:25
PROVIDERS: PCP Physician Assistant; Visit Provider Physician Assistant
DX: I10 Essential (primary) hypertension (principal); D35.2 Benign neoplasm of pituitary gland
CPT/HCPCS: 36415; 80053; 82043; 82570; 84146; 85027

== ENCOUNTER 2024-06-29 14:19 | Outpatient (AMB) | payer OTHER, SELFPAY ==
[2024-06-29 14:28] VITALS: BP 120/78; PULSE 82; O2SAT 98; BMI 30.7
--- NOTE | 2024-06-29 14:28 | A.OFFPC_ITS ---
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 Accompanied by: Self / Same As Patient Allergies No Known Allergies [No Known Allergies*] Allergy (Verified 06/29/24 14:53) Medication List - Last Reconciled 06/29/24 by Juan Daniel Means PA-C hydrochlorothiazide 12.5 mg PO DAILY 30 days Tobacco use date assessed: 06/29/24 Dental Screening Dental Screen Date: 06/29/24 Did you have a dental visit in the last 12 months?: Yes Did you have a dental problem in the last 6 months where you did not have access to dental care?: No Was dental information given to patient?: Patient has dentist HPI Annual Exam HPI Details Patient is a 43-year-old female here today for a routine annual physical. Patient has a past medical history significant for hypertension. .. Hypertension: Blood pressure has been fairly well controlled with hydrochlorothiazide 12.5 mg daily. .. Cervical spine radiculitis: Has been doing physical therapy and has made moderate improvement in her neck pain and facial numbness. . Class 1 obesity: Have noted weight gain since last office visit. She does understand her BMI is now above 30 will work on being more physically active and adapting to better eating habits to reduce her weight. .. Borderline high cholesterol: Patient has a history of borderline high cholesterol. Will recheck a fasting lipid panel to evaluate her lipids. Her goal LDL to be below 130 Vaccine: Up-to-date with COVID, flu, tetanus vaccines. 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 with PAP Mammo: Done in 04/12/2024 Laboratory Tests 05/30/23 09/04/23 06/25/24 12:13 09:36 08:40 RBC 4.36 4.45 Creatinine 0.76 AST 14 47 H Prolactin 13.7 Urine Microalbumin 06/25/24 12:15 RBC Creatinine AST Prolactin Urine Microalbumin 5.0 PFSH Medical History (Updated 06/30/24 @ 07:34 by Juan Daniel Means PA-C) Pituitary microadenoma IUD (intrauterine device) in place Fibroids Renal stones Anal fissure Surgical History History of section Family History Father Prostate cancer Connective tissue disease Mother Hypertension Diabetes Social History (Updated 06/29/24 @ 14:57 by Juan Daniel Means PA-C) Housing: House Alcohol intake: current Alcohol intake frequency: holidays/special occasions only Patient Tobacco Use Status: Never used Tobacco e-Cigarette/Vaping Use: Never Used Second Hand Smoke Exposure: No service: No Current occupational status: employed 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 1. Little interest or pleasure in doing things: not at all 2. Feeling down, depressed, or hopeless: not at all 3. Trouble falling or staying asleep, or sleeping too much: not at all 4. Feeling tired or having little energy: not at all 5. Poor appetite or overeating: not at all 6. Feeling bad about yourself - or that you are a failure or have let yourself or your family down: not at all 7. Trouble concentrating on things, such as reading the newspaper or watching television: not at all 8. Moving or speaking so slowly that other people could have noticed. Or the opposite - being so fidgety or restless that you have been moving around a lot more than usual: not at all 9. Thoughts that you would be better off or of hurting yourself in some way: not at all Total score: 0 Depression Screening Interpretation: Negative Depression Screening Done: Yes 93491 - PHQ-9 Billing: Yes Source: Developed by Drs. Abdirashid Abbott, Agnes Mccrary, Richard Mera and colleagues, with an educational cornell from [employer]. Thrive Questionnaire Date Thrive assessed: 06/29/24 I am a: Patient What is your living situation today?: I have a steady place to live Within the past 12 months, did the food you bought not last and you didn't have the money to get more?: Never true Within the past 12 months, did you worry whether your food would run out before you got money to buy more?: Never true Do you have trouble paying for medicines?: No Do you have trouble getting transportation to medical appointments?: No Do you have trouble paying your heating and electricity bill?: No Do you have trouble taking care of your child, family member or friend?: No Do you have trouble with day-to-day activities such as bathing, preparing meals, shopping, managing finances, etc.?: No Are you currently unemployed and looking for a job?: No Are you interested in more education?: No Please select the resources that you would like help with: None Currently or been in a relationship where the following occur: No concerns reported THRIVE Score: 0 AUDIT C Alcohol Use Questionnaire (AUDIT-C) 1. How often do you have a drink containing alcohol?: 2-4 times a month 2. How many drinks containing alcohol do you have on a typical day when you are drinking?: 1 or 2 3. How often do you have six or more drinks on one occasion?: Never Total Score: 2 GLORIA-7 AMB Questionnaire GLORIA-7 Date GLORIA - 7 assessed: 06/29/24 Feeling nervous, anxious, or on edge: 0 = Not at all Not being able to stop or control worryin = Not at all Worrying too much about different things: 0 = Not at all Trouble relaxin = Not at all Being so restless that it is hard to sit still: 0 = Not at all Becoming easily annoyed or irritable: 0 = Not at all Feeling afraid as if something awful might happen: 0 = Not at all Total GLORIA-7 score (0-4 normal; 5-9 mild; 10-14 moderate; 15-21 severe): 0 Source: Developed by Drs. Abdirashid Abbott, Agnes Mccrary, Richard Mera and colleagues, with an educational cornell from [employer]. GLORIA-7 Assessment Billing GLORIA-7 Assessment Tool: GLORIA-7 Assessment 79479 Review of Systems Const Denies body aches, Denies chills, Denies excessive sweating, Denies fatigue, Denies fever(s) and Denies headache(s) Eyes Denies blurry vision ENT Denies dysphagia, Denies vertigo, Denies dizziness, Denies headache(s), Denies hearing loss and Denies tinnitus Card Denies chest pain, Denies chest pain with activity, Denies syncope, Denies irregular heart rhythm and Denies dyspnea Resp Denies chest congestion, Denies cough, Denies hemoptysis, Denies dyspnea and Denies wheezing GI Denies abdominal pain, Denies melena, Denies hematochezia, Denies coffee ground emesis, Denies dysphagia, Denies diarrhea, Denies nausea and Denies vomiting Denies urinary frequency, Denies dysuria, Denies urinary hesitancy and Denies urinary urgency Musc Denies arthralgias, Denies limited range of motion, Denies muscle cramps and Denies muscle weakness Skin/Breast Denies rash and Denies skin ulcer Neuro Denies Abnormal speech present, Denies confusion, Denies vertigo, Denies dizziness, Denies syncope, Denies headache(s), Denies memory loss and Denies seizure-like activity Psych Denies anxiety, Denies confusion, Denies depression, Denies memory loss, Denies panic attacks and Denies paranoia Endo Denies excessive sweating, Denies fatigue, Denies flushing, Denies polydipsia and Denies polyuria Aller/Immun Denies wheezing Physical exam (Primary Care) Vital Signs: Last Vital Signs Pulse 82 06/29/24 14:28 BP 120/78 06/29/24 14:28 Pulse Ox 98 06/29/24 14:28 Oxygen Delivery Method Room Air 06/29/24 14:28 BMI result Body Mass Index 30.7 BMI Assessment/Plan discussion: High BMI High, discussed plan: lifestyle, weight reduction, dietary and physical activity Tobacco/Smoking Status: Tobacco use Status Tobacco use date assessed 06/29/24 06/29/24 14:36 Patient Tobacco Use Status Never used Tobacco 06/29/24 14:57 e-Cigarette/Vaping Use Never Used 06/29/24 14:57 PHQ-9: PHQ-9 Score PHQ-9: Total score 0 06/29/24 14:55 Depression Screening Interpretation: Negative Thrive Assessment: Date of Thrive Assessment Date Thrive assessed 06/29/24 06/29/24 14:35 Currently or been in a relationship where the following occur: No concerns reported Const General: cooperative, comfortable, no acute distress, alert and awake; No confusion Orientation/consciousness: oriented to person, oriented to place, patient oriented x3 and No confusion HENMT Head: Yes normocephalic Ears: external ears normal and TM's normal bilaterally Face and sinus: No sinus tenderness Mouth: Normal oral and palatal mucosa present and tongue normal Teeth and gingiva: dentition normal and gingiva normal Throat: Yes posterior oropharynx normal, Yes tonsils normal and Yes uvula midline Eyes Conjunctivae: conjunctivae normal Sclerae: sclerae normal Pupils: Equal, round and reactive pupils present EOM: EOMs intact bilaterally Direct Ophthalmoscopy: No no photophobia Neck Neck: Yes no lymphadenopathy, No tender and Yes no JVD Thyroid: Thyroid normal Carotids: no bruits Chest Chest palpation & inspection: no tenderness Resp Effort & Inspection: normal respiratory effort, no audible wheezes, not labored and no stridor Auscultation: no crackles, no rales, no rhonchi and no wheezes Cardio Jugular venous distension: no JVD Rate: regular rate, not bradycardic and not tachycardic Rhythm: regular rhythm Bruits: no carotid bruits Peripheral pulses: Peripheral pulses 2+ throughout GI Inspection: Yes normal to inspection, No abdominal wall ecchymosis and No visible herniation Palpation (GI): Soft to palpation, nontender, no guarding, not rigid and No hepatosplenomegaly present Auscultation: normoactive bowel sounds General: Yes no CVA tenderness Back/Spine/Pelvis Back: no CVA tenderness and No back tenderness Cervical Spine: cervical ROM normal Thoracic/Lumbar Spine: thoracic and lumbar spine normal to inspection, straight leg raise negative bilaterally, No thoraco-lumbar ROM limited and No lumbar spinal tenderness Skin Lesions: no lesions Rashes: no rashes Wounds: no wounds Neuro General: oriented to person, oriented to place, patient oriented x3, CN's II-XI intact bilaterally and No confusion Cranial nerves: Yes Equal, round and reactive pupils present and Yes Normal accommodation reflex present Cognition (Neuro): normal cognition Speech: No Abnormal speech present Gait exam (Neuro): Normal gait present Motor exam (neuro): 5/5 motor strength present throughout Extrem Right upper extremity: full ROM; no cyanosis Left upper extremity: full ROM; no cyanosis Right lower extremity: no edema Left lower extremity: no edema Psych Appearance: grossly normal Mental Status: mental status grossly normal Affect: normal affect Attitude: cooperative Thought process: Normal thought process present Coding Level of Care Code Est Pt Prev Care 40-64y(29541) Diagnoses Annual physical exam Z00.00 Borderline high cholesterol E78.9 Primary hypertension I10 Hypertension type: primary hypertension Class 1 obesity E66.811 Liver enzyme elevation R74.8 Additional Codes GLORIA-7 Assessment Billing - GLORIA-7 Assessment Tool: GLORIA-7 Assessment [id number] ([id number]) PHQ-9 - 23665 - PHQ-9 Billing: Yes ([id number]) Assessment & Plan Assessment & Plan (1) Annual physical exam: Code(s): Z00.00 - Encounter for general adult medical examination without abnormal findings Category: Medical Plan: As per HPI (2) Borderline high cholesterol: Code(s): E78.9 - Disorder of lipoprotein metabolism, unspecified Category: Medical Plan: Patient has a history elevated total cholesterol. Will recheck fasting lipids. She will try to work on dietary and physical activity modification to help reduce her cholesterol. LDL to be below 160 goal total cholesterol to be below 230 (3) HTN (hypertension): Code(s): I10 - Essential (primary) hypertension Category: Medical Qualifiers: Hypertension type: primary hypertension Qualified Code(s): I10 - Essential (primary) hypertension Plan: Patient's blood pressure acceptable today in office. Will continue her current dose of hydrochlorothiazide with goal blood pressure to remain below 140/90 (4) Class 1 obesity: Code(s): E66.811 - Obesity, class 1 Category: Medical Plan: Patient does understand her BMI is over 30 will work on being more physically active and adapting to better eating habits to reduce her weight. (5) Liver enzyme elevation: Code(s): R74.8 - Abnormal levels of other serum enzymes Category: Medical Plan: Noted slight elevation in her liver enzyme. Will recheck in a few weeks. Could be due to restarting fluconazole for onychomycosis and/or weight gain recently. Orders: Orders Comprehensive Ethan. Panel Fast 06/29/24 E78.9 - Disorder of lipoprotein metabolism, unspecified Lipid Panel 06/29/24 E78.9 - Disorder of lipoprotein metabolism, unspecified Medications: Changed From hydrochlorothiazide 12.5 mg PO DAILY 30 days 30 tabs 1RF I10 - Essential (primary) hypertension To hydrochlorothiazide 12.5 mg PO DAILY 90 tabs 1RF 90 days I10 - Essential (primary) hypertension
== END 2024-06-29 15:12 | disposition home or self-care (01) ==
PROVIDERS: PCP Physician Assistant; Visit Provider Physician Assistant
DX: Z00.00 Encounter for general adult medical examination without abnormal findings (principal); E78.9 Disorder of lipoprotein metabolism, unspecified; E66.811 Obesity, class 1; Z68.30 Body mass index [BMI] 30.0-30.9, adult; I10 Essential (primary) hypertension; R74.8 Abnormal levels of other serum enzymes

== ENCOUNTER → 2024-06-29 14:19 | Outpatient (BNVA) | payer OTHER, SELFPAY | PROVIDERS: PCP Physician Assistant; Visit Provider Physician Assistant | DX: Z00.00 Encounter for general adult medical examination without abnormal findings (principal); E78.9 Disorder of lipoprotein metabolism, unspecified; I10 Essential (primary) hypertension; E66.811 Obesity, class 1; Z68.30 Body mass index [BMI] 30.0-30.9, adult; R74.8 Abnormal levels of other serum enzymes; Z79.899 Other long term (current) drug therapy | CPT/HCPCS: 96127 ==

== ENCOUNTER 2024-07-13 10:50 | Outpatient (REF) | payer OTHER, SELFPAY ==
--- NOTE | ~2024-07-13 | US_ITS ---
CLINICAL HISTORY: D21.9 - Benign neoplasm of connective and other soft tissue, unspecified US pelvis: Transabdominal and Transvaginal with ovarian color Doppler and arterial and venous pulse doppler spectral analysis: Comparison: 01/27/2024 Findings: The uterus is normal in size, 8.2 cm in length Endometrial thickness is normal, 2-3 mm. An intrauterine device is in satisfactory position. Three fibroids are present in the uterine fundus measuring 1.6, 2.0, and 0.8 cm respectively The RIGHT ovary measures 4 x 2.9 x 3.5 cm. A 3.2 cm cyst is present in the right ovary. The LEFT ovary measures 2.3 x 1.6 x 2.6 cm A 2.0 cm cyst is present in the left ovary. Bilateral ovarian spectral Doppler signals are normal with continuous diastolic flow indicating low resistance. No solid ovarian masses. No free fluid Impression: Bilateral ovarian cysts with benign ultrasound features, barely perceptible wall, no septations and through transmission with posterior acoustic enhancement. No images are submitted with cyst wall color Doppler. If the cyst betts are non hyperemic on color Doppler, the cysts would be classified: O-RADS 1, benign, according to the ovarian O-RADS adnexal reporting and data System. This document has been electronically signed by: Harvey Ruelas MD on 07/13/2024 21:39:46
== END 2024-07-13 10:51 | disposition home or self-care (01) ==
LOC: HO.US 10:50
PROVIDERS: PCP Physician Assistant; Visit Provider Advanced Practice Midwife
DX: D21.9 Benign neoplasm of connective and other soft tissue, unspecified (principal)
CPT/HCPCS: 76830; 76856

== ENCOUNTER → 2024-07-13 10:52 | Outpatient (BNV) | payer OTHER, SELFPAY | PROVIDERS: PCP Physician Assistant; Visit Provider Radiology Diagnostic Radiology | DX: N83.201 Unspecified ovarian cyst, right side (principal); N83.202 Unspecified ovarian cyst, left side; D25.9 Leiomyoma of uterus, unspecified | CPT/HCPCS: 76830; 76856; 93976 ==

== ENCOUNTER 2024-07-22 08:01 | Outpatient (RCR) | payer OTHER, SELFPAY | END 2024-08-19 11:44 | disposition home or self-care (01) | LOC: HO.PT 08:01 | PROVIDERS: PCP Physician Assistant; Visit Provider Physician Assistant | DX: M54.6 Pain in thoracic spine (principal) | CPT/HCPCS: 97110; 97140; 97161; 97530; 97535 ==

== ENCOUNTER 2024-08-04 08:14 | Outpatient (AMB) | payer OTHER, SELFPAY ==
--- NOTE | 2024-08-04 08:16 | MHC.OFFVIS ---
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 She is currently a Mirena user and reports bleeding has diminished since insertion. She denies any pelvic pain. [facility] Medical History (Updated 08/04/24 @ 08:36 by Deisy Diego CNM) Pituitary microadenoma IUD (intrauterine device) in place Fibroids Renal stones Anal fissure Surgical History History of section Family History Father Prostate cancer Connective tissue disease Mother Hypertension Diabetes Social History (Updated 06/29/24 @ 14:57 by Juan Daniel Means PA-C) Housing: House Alcohol intake: current Alcohol intake frequency: holidays/special occasions only Patient Tobacco Use Status: Never used Tobacco e-Cigarette/Vaping Use: Never Used Second Hand Smoke Exposure: No service: No Current occupational status: employed 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 Current occupational exposures/hazards: Yes Sexual orientation: Straight/Heterosexual Gender identity: Female Cognitive needs: No Hearing needs: No Vision needs: No Female Reproductive History Menstrual Age of Menarche: 11 control method: progestin IUCD (Mirena 12/12/23) Review of Systems Const All systems reviewed & are unremarkable except as noted in HPI and below Endo Reports no additional complaints Physical Exam Const General: cooperative, healthy appearing and no acute distress Psych Appearance: well kempt Attitude: cooperative Thought process: Normal thought process present Results Reviewed Results Reviewed: [address] [address] Ultrasound Report Signed Patient: Sarah Brown MR#: [id number] : 1980 Acct:[id number] Age/Sex: 43 / F ADM Date: 07/13/24 Loc: HO.US Attending Dr: Deisy Diego CNM Ordering Physician: Deisy Diego CNM Date of Service: 07/13/24 Procedure(s): US pelvic and transvaginal Accession Number(s): [id number] cc: Juan Daniel Means PA-C; Deisy Diego CNM~ CLINICAL HISTORY: D21.9 - Benign neoplasm of connective and other soft tissue, unspecified US pelvis: Transabdominal and Transvaginal with ovarian color Doppler and arterial and venous pulse doppler spectral analysis: Comparison: 01/27/2024 Findings: The uterus is normal in size, 8.2 cm in length Endometrial thickness is normal, 2-3 mm. An intrauterine device is in satisfactory position. Three fibroids are present in the uterine fundus measuring 1.6, 2.0, and 0.8 cm respectively The RIGHT ovary measures 4 x 2.9 x 3.5 cm. A 3.2 cm cyst is present in the right ovary. The LEFT ovary measures 2.3 x 1.6 x 2.6 cm A 2.0 cm cyst is present in the left ovary. Bilateral ovarian spectral Doppler signals are normal with continuous diastolic flow indicating low resistance. No solid ovarian masses. No free fluid Impression: Bilateral ovarian cysts with benign ultrasound features, barely perceptible wall, no septations and through transmission with posterior acoustic enhancement. No images are submitted with cyst wall color Doppler. If the cyst betts are non hyperemic on color Doppler, the cysts would be classified: O-RADS 1, benign, according to the ovarian O-RADS adnexal reporting and data System. This document has been electronically signed by: Harvey Ruelas MD on 07/13/2024 21:39:46 Dictated By: Harvey Ruelas MD Signed By: <Electronically signed by Harvey Ruelas MD in OV> 07/13/242140 DD/ 38 TD/TT: 07/13/242138 Director Of Safety: Assessment & Plan Assessment & Plan (1) Encounter to discuss test results: Code(s): Z71.2 - Person consulting for explanation of examination or test findings Plan: Reviewed: Ultrasound findings bilateral ovarian cyst appearance is benign. Correlation of ovarian cyst formation with progesterone IUD users. When to call for any pelvic discomfort. Three fibroids, additional new 1 since last scan 02/11/2024. (2) Fibroid: Code(s): D21.9 - Benign neoplasm of connective and other soft tissue, unspecified Plan Counseled re: Leiomyoma: common pelvic neoplasm. Differential diagnosis-may include but not limited to- leiomyosarcoma which is a rare uterine sarcoma 3-7/100,000, difficult to distinguish from fibroids on ultrasound from uterine sarcoma's. Unlikely any single test will have a highly positive predictive value. Hysterectomy is not recommended for sole purpose of excluding malignant neoplasm. Consult for surgical exploration, medical treatment, other treatments, verses expectant management, pros and cons, risks and benefits. Expectant management follow up in 6 months, then yearly for stability. Patient prefers to proceed with expectant management. Report any AUB, pelvic pressure, bloating, or pain. Referral to MD if indicated for level of care if indicated. The patient expressed understanding and agreement with the plan of care. All of her questions and concerns were addressed to the best of my ability. This note is constructed using voice recognition software. While every effort has been made to ensure accuracy, printing pressman errors may have been included. Orders: Orders US pelvic and transvaginal 12/28/24 Z71.2 - Person consulting for explanation of examination or test findings Coding Level of Care Code Est Pt Level 3 (54937) Diagnoses Encounter to discuss test results Z71.2 Fibroid D21.9
== END 2024-08-04 08:53 | disposition home or self-care (01) ==
LOC: HO.HWS 08:14
PROVIDERS: PCP Physician Assistant; Visit Provider Advanced Practice Midwife
DX: Z71.2 Person consulting for explanation of examination or test findings (principal); D21.9 Benign neoplasm of connective and other soft tissue, unspecified
CPT/HCPCS: 99213

== ENCOUNTER 2024-12-09 07:39 | Outpatient (REF) | payer OTHER, SELFPAY ==
[2024-12-09 08:39] LABS: Alanine Aminotransferase 17 U/L (0-31); Albumin Level 4.5 g/dL (3.5-5.0); Alkaline Phosphatase 83 U/L (39-117); Anion Gap 9 (12-20); Aspartate Amino Transferase 21 U/L (5-31); Bilirubin Total 0.4 mg/dL (0.0-1.0); Blood Urea Nitrogen 17 mg/dL (9-16); Calcium 9.7 mg/dL (8.4-10.2); Carbon Dioxide 28 mmol/L (22-29); Chloride 107 mmol/L (96-108); Cholesterol 177 mg/dL (<200); Estimated Glomerular Filt Rate > 60; Glucose Fasting 88 mg/dL (60-99); HDL Cholesterol 58 mg/dL (>40); LDL Cholesterol Calculated 102 mg/dL (<100); Sodium 140 mmol/L (135-145); Total Protein 7.3 g/dL (6.5-8.0); Triglycerides 86 mg/dL (<150)
== END 2024-12-09 07:40 | disposition home or self-care (01) ==
LOC: HO.LAB 07:39
PROVIDERS: PCP Physician Assistant; Visit Provider Physician Assistant
DX: E78.9 Disorder of lipoprotein metabolism, unspecified (principal)
CPT/HCPCS: 36415; 80053; 80061

== ENCOUNTER 2024-12-16 10:58 | Outpatient (REF) | payer OTHER, SELFPAY ==
--- NOTE | ~2024-12-16 | US_ITS ---
EXAMINATION: US PELVIS TRANSABDOMINAL AND TRANSVAGINAL HISTORY: Z71.2 - Person consulting for explanation of examination or test findings COMPARISON: Comparison is made with the prior examination dated 07/13/2024. TECHNIQUE: Transabdominal and endovaginal real-time 2D jones-scale ultrasound was performed. FINDINGS: Uterus: The uterus is normal in size, measuring 10.4 x 3.5 x 4.8 cm. Myometrium has a normal echotexture. Again seen is a posterior fibroid measuring 7 x 5 x 9 mm (previously 8 x 7 x 7 mm), and a fundal fibroid measuring 17 x 10 x 13 mm (previously 13 x 9 x 16 mm). A 3rd fibroid noted on the prior study is not seen on today's examination. Endometrium: The endometrial stripe is obscured by the presence of an IUD which appears in appropriate position. Right ovary: The right ovary measures 1.9 x 1.2 x 1.5 cm. The right ovary is normal in size and echotexture. The previously seen cyst has resolved. Left ovary: The left ovary measures 3.2 x 2.6 x 2.0 cm. There is a hypoechoic area within the ovary measuring 2.0 x 1.1 x 1.5 cm which may represent a hemorrhagic/involuting cyst or follicle. Pelvic fluid: none. US/US pelvic and transvaginal IMPRESSION: 1. IUD in appropriate position in the endometrial cavity. 2. Fibroid uterus as described. 3. The previously seen right ovarian cyst has resolved. 4. 2.0 x 1.1 x 1.5 cm probable hemorrhagic/involuting left ovarian cyst versus follicle. Electronically signed by: Abdirashid Doherty MD 12/16/2024 12:25 PM EDT RP
--- OUTSIDE RECORDS SUMMARY | 2024-12-16 13:00 | XMS_ITS | Data Portability ---
Author Organization [facility], Telehealth Patient Home Address [address] [place] [address] Assessment No assessment recorded. Plan of Treatment Reminders Order Date Submit Date Provider Last Modified By Organization Details Last Modified Time Details Appointments None recorded. Lab urinalysis , dipstick 2017 018 [facility], [address] [place] [address], [id number], 8 14:42:55 CMP, serum or plasma 2017 018 [facility], [address] [place] [address], [phone], 9 09:20:42 CBC 2017 018 [facility], [address] [place] [address], [phone], 9 09:20:43 vitamin D, 25-hydroxy , total, serum 2017 018 [facility], [address] [place] [address], [phone], 9 09:20:43 lipid panel, serum 2017 018 [facility], [address] [place] [address], [id number], 9 09:20:42 TSH + free T4, serum 2017 Zena moon [facility], [address], [address], [place], [address], 9 09:20:43 Referral None recorded. Procedures None recorded. Surgeries None recorded. Imaging None recorded. Medication Orders None recorded. Patient TargetsNo targets recorded. Patient Instructions Encounter Date Encounter Id Patient Instructions Last Modified By Organization Details Last Modified Time 05/23/2018 [id number] Continue healthy diet/exercise red Not available 05/23/2018 14:55:19 Reason for Referral None Reported. Results Created Date Observation Date Name Description Value Unit Range Abnormal Flag Note LastModifiedBy Organization Detail LastModifiedTime 05/23/20 18 05/23/2018 urina lysis , dipst ick Leukocytes Negati ve Not Available [facility] [address], [place], [address], 05/23/2018 14:15:07 05/23/20 18 05/23/2018 urina lysis , dipst ick Nitrite negati ve Not Available [facility] [address], [place], [address], 05/23/2018 14:15:07 05/23/20 18 05/23/2018 urina lysis , dipst ick Urobilinogen .2 Not Available [facility] [address], [place], [address], 05/23/2018 14:15:07 05/23/20 18 05/23/2018 urina lysis , dipst ick Protein Negati ve Not Available [facility] [address], [place], [address], 05/23/2018 14:15:07 05/23/20 18 05/23/2018 urina lysis , dipst ick pH 6.0 Not Available [facility] [address], [place], [address], 05/23/2018 14:15:07 05/23/20 18 05/23/2018 urina lysis , dipst ick Blood Non-He molyze d: Trace Not Available [facility] [address], [place], [address], 05/23/2018 14:15:07 05/23/20 18 05/23/2018 urina lysis , dipst ick Specific Center 1.020 Not Available [facility] [address], [place], [address], 05/23/2018 14:15:07 05/23/20 18 05/23/2018 urina lysis , dipst ick Ketone Negati ve Not Available [facility] [address], [place], [address], 05/23/2018 14:15:07 05/23/20 18 05/23/2018 urina lysis , dipst ick Bilirubin Negati ve Not Available [facility] [address], [place], [address], 05/23/2018 14:15:07 05/23/20 18 05/23/2018 urina lysis , dipst ick Glucose Negati ve Not Available [facility] [address], [place], [address], 05/23/2018 14:15:07 05/23/20 18 05/23/2018 urina lysis , dipst ick Appearance Clear Not Available [facility] [address], [place], [address], 05/23/2018 14:15:07 05/23/20 18 05/23/2018 urina lysis , dipst ick Color Pale Yellow Not Available [facility] [address], [place], [address], 05/23/2018 14:15:07 02/12/20 20 02/11/2020 NIMOO mayelin bilat eral No observ ation record ed. [email or web address] [facility] [address], [place], [address], 02/12/2020 10:15:51 Result Notes None recorded. Problems Name Problem SNOMED Code Status Onset Date Resolution Date Notes Provider Name and Address Organization Details Recorded Time Gastroesophage al reflux disease 532302897 [facility] 8 08:32:38 Problem Notes None recorded. Procedures Surgical History Date Name Laterality Status Provider Name and Address Organization Details Recorded Time 06/27/19 18 Date of Last Pap Smear completed Italia Walters NP, [address] [place] [address], [phone], [facility] 05/23/2018 14:23:11 Caesarean Section completed Italia Walters NP, [address] [place] [address], [phone], [facility] 05/23/2018 14:22:15 Imaging Results None recorded. Procedure Notes None recorded. Medical Equipment None Reported. Allergies No known drug allergies Medications Name Sig Start Date Stop Date Status Note LastModified by Organization Details LastModified Time Nortrel 0.5/35 (28) 0.5 mg-35 mcg tablet Take 1 tablet every day by oral route. active Not Available Not Available No t Available Vitals Date Recorded Body height Body mass index (BMI) Body weight Heart rate Oxygen saturation Oxygen saturation in Arterial blood by Pulse oximetry Systolic blood pressure Diastolic blood pressure Provider Name and Address Organization Details Last Updated DateTime 8 172.09 cm 29.2 kg/m2 54958.3 5 g 79 /min 98 % 98 % 140 mm[Hg] 70 mm[Hg] Milagro Coleman [facility] 8 14:16:10 Social History Question Answer Notes LastModified by Organizat ion Details LastModified Time Tobacco Smoking Status Never Smoker Not Available [facility] 04/26/2020 03:36:24 What Was The Date Of Your Most Recent Tobacco Screening? 05/23/2018 [id number] Information not available 04/26/2020 Sex: Unknown Functional Status None recorded. Mental Status None recorded. Family History Relationship Description Onset Age of this Age Resolved Age Notes LastModified by Organization Details LastModified Time Mother Type 2 diabetes mellitus htn red Not available 2017 14:21:53 Medical History Condition Response Coronary Artery Disease N Gout N Kidney Stones Y Blood Diseases N Hyperthyroidism N Breast Cancer N Blood Transfusion N Hypothyroidism N COPD N Depression N Lung Disease N Defects or Inherited Disease N Difficulty Swallowing N Anesthesia Complications N Anxiety Disorder N Vision or Eye Problems Arthritis N Cancer N Stroke N Bladder or Kidney Problems N High Cholesterol N Liver Disease N Fibromyalgia N Headaches Y Kidney Disease N Allergies/Hayfever N Heart Problems N GI Problems N Anemia N MRSA exposure Constipation N Seizures/Epilepsy N Congestive Heart Failure (CHF) N Eczema N Abuse/Domestic Violence N Diverticulitis N Asthma N Reflux/GERD N Hepatitis N Heart Disease N Pulmonary Embolism N Chronic Ear Infections N Pre-Eclampsia N Hypertension N Chicken Pox Y Autism Spectrum Disorder (ASD) N Gynecological History Statement/Question Response Date of LMP 05/06/2018 Sexually Active? Y Menses Monthly Y HPV Vaccine N Date of Last Pap Smear 06/27/2017 Sexual Problems? Y Current Control Method BCPs Age at Menarche 9 Age at First Child 27 Obstetrics History GPAL:G 2 P 2 0 0 2 Type Value Full Term 2 Living 2 Total 2 Past Encounters Encounter ID Performer Location Encounter Start Date Encounter Closed Date Diagnosis/Indication Diagnosis SNOMED-CT Code Diagnosis ICD10 Code Diagnosis Note [id number] Virgil Combs DO [facility] [address] [facility],[place] [address] 05/23/2018 14:03:17 05/26/2018 15:23:41 Adult health examination 086524700 Z00.00 Health Concerns Section Related Observation LastModified by Organization Detai ls LastModified Time None Recorded Concern Status LastModified by Organization Details LastModified Time None Recorded Advance Directives Directive None Recorded Payers Insurance Date Sequence Insurance Name Policy Number Policy Woo Covered Member ID Woo Member ID Guarantor Name 05/26/2018 1 [facility] [id number] Sarah Brown [id number] Sarah Brown Notes Date Note Type Note Provider Name a nd Address Organization Details Recorded Time 8 text/html Annual WellnessReported bypatient.Diet and Nutrition:healthy diet;high caloric intake Fracture Risk:no history of fractures; no recent explained fracture; no sudden unexplained fractures; no previous musculoskeletal injuries Physical Activity:recent increase in physical activity; good physical condition; circuit training Additional Lifestyle Factors:no tobacco use; drinks alcohol (mild-moderate) Depression Risk:never feels sad, empty, or tearful; no loss of interest in activities; no significant changes in weight; no sleep disturbances or insomnia; no agitation; no loss of energy; no feelings of worthlessness or guilt; no thoughts of suicide; no history of depression; no history of mood disorders Hearing:no loss of hearing Vision:no vision problems; wears glassesNotes:Up to date eye and dental care Italia Walters NP, [address] [place], [address], [facility] 05/23/2018 14:55:44 OBGyn Episode No OBEpisode recorded.
== END 2024-12-16 10:59 | disposition home or self-care (01) ==
LOC: HO.US 10:58
PROVIDERS: PCP Physician Assistant; Visit Provider Advanced Practice Midwife
DX: Z71.2 Person consulting for explanation of examination or test findings (principal)
CPT/HCPCS: 76830; 76856

== ENCOUNTER → 2024-12-16 11:00 | Outpatient (BNV) | payer OTHER, SELFPAY | PROVIDERS: PCP Physician Assistant; Visit Provider Radiology Diagnostic Radiology | DX: D25.9 Leiomyoma of uterus, unspecified (principal); Z71.2 Person consulting for explanation of examination or test findings | CPT/HCPCS: 76830; 76856 ==

== ENCOUNTER 2025-01-13 08:23 | Outpatient (AMB) | payer OTHER, SELFPAY ==
[2025-01-13 08:33] VITALS: BMI 30.9
--- NOTE | 2025-01-13 08:33 | A.OFFVIS_ITS ---
Vital Signs 01/13/25 08:33 Height 5 ft 8 in Weight 203 lb BMI 30.9 Intake Visit Reasons: ultrasound follow up Intake Note: Ultrasound done on December 16 Information Interpreted: non-clinical & clinical Technical Testing Engineer: Technical Testing Engineer Present Allergies No Known Allergies (No Known Allergies*) Allergy (Verified 01/13/25 08:35) Medication List - Last Reconciled 01/13/25 by Idania Emery LPN hydrochlorothiazide 12.5 mg PO DAILY 90 days levonorgestrel (Mirena) intrauterine Is last menstrual period known: Yes Last menstrual period: 12/28/24 Post menopausal: No Patient : No Do you need a note to return to daycare/school/sports/work: No HPI Comments Details: Patient is here today for a follow up pelvic ultrasound. History of uterine fibroids. Current Mirena user has an occasional episode of light bleeding. No other concerns today. [facility] Medical History (Updated 08/04/24 @ 08:36 by Deisy Diego CNM) Pituitary microadenoma IUD (intrauterine device) in place Fibroids Renal stones Anal fissure Surgical History History of section Family History Father Prostate cancer Connective tissue disease Mother Hypertension Diabetes Social History (Updated 06/29/24 @ 14:57 by Juan Daniel Means PA-C) Housing: House Alcohol intake: current Alcohol intake frequency: holidays/special occasions only Patient Tobacco Use Status: Never used Tobacco e-Cigarette/Vaping Use: Never Used Second Hand Smoke Exposure: No Patient : No service: No Current occupational status: employed 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 Current occupational exposures/hazards: Yes Sexual orientation: Straight/Heterosexual Gender identity: Female Cognitive needs: No Hearing needs: No Vision needs: No Female Reproductive History Menstrual Age of Menarche: 11 Date of last menstrual period: 12/28/24 control method: progestin IUCD (12/2023) Total pregnancies: 2 Number of Living Children: 2 Review of Systems Const All systems reviewed & are unremarkable except as noted in HPI and below Endo Reports no additional complaints Physical Exam Vital Signs: BMI result Body Mass Index 30.9 Const General: cooperative, healthy appearing and no acute distress Psych Appearance: well kempt Attitude: cooperative Thought process: Normal thought process present Results Reviewed Results Reviewed: [address] [address] Ultrasound Report Signed Patient: Sarah Brown MR#: [id number] : 1980 Acct:[id number] Age/Sex: 43 / F ADM Date: 12/16/24 Loc: .[place] Attending Dr: Deisy Diego CNM Ordering Physician: Deisy Diego CNM Date of Service: 12/16/24 Procedure(s): US pelvic and transvaginal Accession Number(s): [id number] cc: Juan Daniel Means PA-C; Deisy Diego CNM~ EXAMINATION: US PELVIS TRANSABDOMINAL AND TRANSVAGINAL HISTORY: Z71.2 - Person consulting for explanation of examination or test findings COMPARISON: Comparison is made with the prior examination dated 07/13/2024. TECHNIQUE: Transabdominal and endovaginal real-time 2D jones-scale ultrasound was performed. FINDINGS: Uterus: The uterus is normal in size, measuring 10.4 x 3.5 x 4.8 cm. Myometrium has a normal echotexture. Again seen is a posterior fibroid measuring 7 x 5 x 9 mm (previously 8 x 7 x 7 mm), and a fundal fibroid measuring 17 x 10 x 13 mm (previously 13 x 9 x 16 mm). A 3rd fibroid noted on the prior study is not seen on today's examination. Endometrium: The endometrial stripe is obscured by the presence of an IUD which appears in appropriate position. Right ovary: The right ovary measures 1.9 x 1.2 x 1.5 cm. The right ovary is normal in size and echotexture. The previously seen cyst has resolved. Left ovary: The left ovary measures 3.2 x 2.6 x 2.0 cm. There is a hypoechoic area within the ovary measuring 2.0 x 1.1 x 1.5 cm which may represent a hemorrhagic/involuting cyst or follicle. Pelvic fluid: none. US/US pelvic and transvaginal IMPRESSION: 1. IUD in appropriate position in the endometrial cavity. 2. Fibroid uterus as described. 3. The previously seen right ovarian cyst has resolved. 4. 2.0 x 1.1 x 1.5 cm probable hemorrhagic/involuting left ovarian cyst versus follicle. Electronically signed by: Abdirashid Doherty MD 12/16/2024 12:25 PM EDT RP Dictated By: Abdirashid Doherty MD Signed By: <Electronically signed by Abdirashid Doherty MD in OV> 12/16/24 1225 DD/ 1109 TD/TT: 12/16/24 1124 Tub Chucker: Assessment & Plan Assessment & Plan (1) Leiomyoma: Code(s): D21.9 - Benign neoplasm of connective and other soft tissue, unspecified Plan: Counseled re: Leiomyoma: common pelvic neoplasm. Differential diagnosis-may include but not limited to- leiomyosarcoma which is a rare uterine sarcoma 3- 7/100,000, difficult to distinguish from fibroids on ultrasound from uterine sarcoma's. Unlikely any single test will have a highly positive predictive value. Hysterectomy is not recommended for sole purpose of excluding malignant neoplasm. Consult for surgical exploration, medical treatment, other treatments, verses expectant management, pros and cons, risks and benefits. Expectant management follow up in 6 months, then yearly for stability. Patient prefers to proceed with expectant management. Referral to MD if indicated for level of care if indicated Report any AUB, pelvic pressure, bloating, or pain. (2) Encounter to discuss test results: Code(s): Z71.2 - Person consulting for explanation of examination or test findings Plan Discussed: Ultrasound findings- IMPRESSION: 1. IUD in appropriate position in the endometrial cavity. 2. Fibroid uterus as described. 3. The previously seen right ovarian cyst has resolved. 4. 2.0 x 1.1 x 1.5 cm probable hemorrhagic/involuting left ovarian cyst versus follicle. Follow up ultrasound. Advised to there is any pelvic pain. The patient expressed understanding and agreement with the plan of care. All of her questions and concerns were addressed to the best of my ability. This note is constructed using voice recognition software. While every effort has been made to ensure accuracy, biofuels manager errors may have been included. Orders: Orders US pelvic and transvaginal 6 Months D21.9 - Benign neoplasm of connective and other soft tissue, unspecified Coding Level of Care Code Est Pt Level 3 (34832) Diagnoses Leiomyoma D21.9 Encounter to discuss test results Z71.2
--- OUTSIDE RECORDS SUMMARY | 2025-01-13 08:35 | XMS_ITS | Data Portability ---
Author Organization [facility] Internal [facility], Telehealth Patient Home Address [address] [place] [address] Assessment No assessment recorded. Plan of Treatment Reminders Order Date Submit Date Provider Last Modified By Organization Details Last Modified Time Details Appointments None recorded. Lab urinalysis , dipstick 2017 018 [facility] (formerly [facility]3] Internal Medicine, [address] [place] [address], [id number], 8 14:42:55 CMP, serum or plasma 2017 018 [facility], [address] [place] [address], [id number], 9 09:20:42 CBC 2017 018 [facility] ([facility]3] Internal [facility], [address] [place] [address], [id number], 9 09:20:43 vitamin D, 25-hydroxy , total, serum 2017 018 [facility] ([facility]3] Internal [facility], [address] [place] [address], [id number], 9 09:20:43 lipid panel, serum 2017 018 [facility], [address] [place] [address], [phone], 9 09:20:42 TSH + free T4, serum 2017 Zena moon [facility], [address], [place], [address], 9 09:20:43 Referral None recorded. Procedures None recorded. Surgeries None recorded. Imaging None recorded. Medication Orders None recorded. Patient TargetsNo targets recorded. Patient Instructions Encounter Date Encounter Id Patient Instructions Last Modified By Organization Details Last Modified Time 05/23/2018 [id number] Continue healthy diet/exercise red Not available 05/23/2018 14:55:19 Reason for Referral None Reported. Results Created Date Observation Date Name Description Value Unit Range Abnormal Flag Note LastModifiedBy Organization Detail LastModifiedTime 05/23/20 18 05/23/2018 urina lysis , dipst ick Leukocytes Negati ve Not Available [facility] [address], [place], [address], 05/23/2018 14:15:07 05/23/20 18 05/23/2018 urina lysis , dipst ick Nitrite negati ve Not Available [facility] [address], [place], [address], 05/23/2018 14:15:07 05/23/20 18 05/23/2018 urina lysis , dipst ick Urobilinogen .2 Not Available [facility] [address], [place], [address], 05/23/2018 14:15:07 05/23/20 18 05/23/2018 urina lysis , dipst ick Protein Negati ve Not Available [facility] [address], [place], [address], 05/23/2018 14:15:07 05/23/20 18 05/23/2018 urina lysis , dipst ick pH 6.0 Not Available [facility] [address], [place], [address], 05/23/2018 14:15:07 05/23/20 18 05/23/2018 urina lysis , dipst ick Blood Non-He molyze d: Trace Not Available [facility] [address], [place], [address], 05/23/2018 14:15:07 05/23/20 18 05/23/2018 urina lysis , dipst ick Specific [place] 1.020 Not Available [facility] [address], [place], [address], 05/23/2018 14:15:07 05/23/20 18 05/23/2018 urina lysis , dipst ick Ketone Negati ve Not Available [facility] [address], [place], [address], 05/23/2018 14:15:07 05/23/20 18 05/23/2018 urina lysis , dipst ick Bilirubin Negati ve Not Available [facility] [address], [place], [address], 05/23/2018 14:15:07 05/23/20 18 05/23/2018 urina lysis , dipst ick Glucose Negati ve Not Available [facility] [address], [place], [address], 05/23/2018 14:15:07 05/23/20 18 05/23/2018 urina lysis , dipst ick Appearance Clear Not Available [facility] [address], [place], [address], 05/23/2018 14:15:07 05/23/20 18 05/23/2018 urina lysis , dipst ick Color Pale Yellow Not Available [facility] [address], [place], [address], 05/23/2018 14:15:07 02/12/20 20 02/11/2020 MAMMO mayelin, chang rodriguez No observ ation record ed. [email or web address] [facility] [address], [place], [address], 02/12/2020 10:15:51 Result Notes None recorded. Problems Name Problem SNOMED Code Status Onset Date Resolution Date Notes Provider Name and Address Organization Details Recorded Time Gastroesophage al reflux disease 032265854 [facility] 8 08:32:38 Problem Notes None recorded. Procedures Surgical History Date Name Laterality Status Provider Name and Address Organization Details Recorded Time 06/27/19 18 Date of Last Pap Smear completed Italia Walters NP, [address] [place] [address], [phone], [facility] Internal [facility] 05/23/2018 14:23:11 Caesarean Section completed Italia Walters NP, [address] [place] [address], [phone], [facility] Internal [facility] 05/23/2018 14:22:15 Imaging Results None recorded. Procedure [...] in Arterial blood by Pulse oximetry Systolic And Diastolic Provider Name and Address Organization Details Last Updated DateTime 8 172.09 cm 29.2 kg/m2 87377.3 5 g 79 /min 98 % 98 % 140/70 mm[Hg] Milagro Coleman [facility] 8 14:16:10 Social History Question Answer Notes LastModified by Organizat ion Details LastModified Time Tobacco Smoking Status Never Smoker Not Available [employer] 04/26/2020 03:36:24 What Was The Date Of Your Most Recent Tobacco Screening? 05/23/2018 [id number] Information not available 04/26/2020 Sex: Unknown Functional [...] N High Cholesterol N Liver Disease N Headaches Y Fibromyalgia N Kidney Disease N Allergies/Hayfever N Heart Problems [...] SNOMED-CT Code Diagnosis ICD10 Code Diagnosis Note [id number] Virgil Combs DO [facility] [address] [facility],[place] [address] 05/23/2018 14:03:17 05/26/2018 15:23:41 Adult health examination [id number] Z00.00 Health Concerns Section Related Observation LastModified by Organization Detai ls LastModified Time None Recorded Concern Status LastModified by Organization Details LastModified Time None Recorded Advance Directives Directive None Recorded Payers Insurance Date Sequence Insurance Name Policy Number Policy Woo Covered Member ID Woo Member ID Guarantor Name 05/26/2018 1 R [id number] Sarah Brown [id number] Sarah Brown Notes Date Note Type Note [...] dental care Italia Walters NP, [address] [place], [address], [facility] 05/23/2018 14:55:44 OBGyn Episode No OBEpisode recorded.
--- OUTSIDE RECORDS SUMMARY | 2025-01-13 08:35 | XMS_ITS | Clinical Summary ---
Author Organization [facility] Address [address] [address] Phone Care Team Providers Care Solar Consultant Name Role Phone Unavailable Primary Care Provider Unavailabl e Allergies No known active allergies Medications norethindrone-et hinyl estradiol (NORTREL , ,) 1-0.035 mg per tablet 1 tablet Orally Daily for Three Weeks, 1 Week off 04/03/2013 Active Active Problems Problem Noted Date Diagnosed Date Palpitations 07/11/2021 Assessment & Plan (07/11/2021 12:17 PM EST): New onset since covid-19 illness in March 2020. No symptoms during OV today. Recommended cardiology evaluation given the duration of these episodes. -referred to [facility] cardiology. She will call them to schedule -recommended trying to get adequate sleep, avoid caffeine, stay well hydrated, she is going to try and work on setting some boundaries at work to decrease stress. Encounter for routine adult health examination without abnormal findings 04/29/2020 Assessment & Plan (07/11/2021 12:15 PM EST): Pap: NIL/hpv - in 2017. 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 Next due 2022 Mammogram: birads-1 in January 2020. Reports having repeat in 2020. Will request records. Labs: cbc/cmp/a1c/lipids ordered Immunizations: tetanus utd. Next due 2025. Already had flu shot and covid-19 vaccinations through work Follow up annually for CPE and as needed Assessment & Plan (04/29/2020 12:53 PM EST): Pap: NIL/hpv - in 2018. 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 Repeat in 2020 Labs: recently had lipid panel showing elevated ldl at 153. Counseled on dietary changes for wt loss and lowering cholesterol Immunizations: tetanus utd. Next due 2025. Already had flu shot through work Follow up annually for CPE and as needed Immunizations Immunization Administration Dates Next Due Influenza Quadrivalent Preservative Free IM 02/23,04/09/2019,04/09/2018 Influenza Trivalent w/ Preservative IM 6 Tdap 08/22/2015 Family History Medical History Relation Comments Diabetes mellitus Maternal Grandfather Hypertension Maternal Grandfather Hypertension Maternal Grandmother Hypertension Maternal Uncle Diabetes mellitus Mother Hypertension Mother Cancer Paternal Grandfather Relation Status Comments Father Alive Maternal Grandfather Alive Maternal Grandmother Alive Maternal Uncle Mother Alive Paternal Grandfather Social History Tobacco Use Types Packs/Day Years Used Date Smoking Tobacco: Never Smokeless Tobacco: Never Alcohol Use Standard Drinks/Week Comments Yes 0 (1 standard drink = 0.6 oz pur e alcohol) socially Child or Family Care Answer Date Record ed Do you have problems with on e of the following making it difficult for you to work, study, or receive health care? No 07/07/2021 Education Answer Date Recorded Are you interested in more education? Not on josiane e 07/12/2023 Are you concerned about learning? Not on file 07/12/2023 No 07/12/2023 No 07/12/2023 Food Answer Date Recorded Within the past 6 months we worried whether our food would run out before we got money to buy more. Never True 07/07/2021 Within the past 6 months the food we bought just didn't last and we didn't have enough money to get more. Never True Residential Stability Answer Date Recor ded What is your housing situation today? I have gypsy sing 07/07/2021 How many times have you move d in the past 12 months? Zero (I did not move) 07/07/2021 06 Are you worried that in t he next 2 months, you may not have your own housing to live in? No 07/07/2021 Paying for Meds Answer Date Recorded Do you have trouble paying for medicines? No 07/07/2021 Paying Utility Bills Answer Date Record ed Do you have trouble paying your heating or elect ricity bill? No 07/07/2021 Transportation Answer Date Recorded Has the lack of transportati on kept you from medical appointments or from getting medications? No 07/07/2021 Unemployment Answer Date Recorded Are you currently unemployed or working on a part-time or temporary basis, and looking for work? No 07/07/2021 Digital Access Answer Date Recorded No 11/16/2022 No 11/16/2022 Reliable internet access at home? Not on file 11/16/2022 Device with a working camera? Not on file Comments Unknown Sex and Gender Information Value Date Recorded Sex Assigned at Female 07/07/2021 12:05 PM EST Legal Sex Female 9:22 PM EDT Gender Identity Female 07/07/2021 12:05 PM EST Sexual Orientation Straight 07/07/2021 12 :05 PM EST Last Filed Vital Signs Vital Sign Reading Time Taken Comments Blood Pressure 120/80 07/10/2021 11:49 AM EST Pulse 86 07/10/2021 11:49 AM EST Temperature 36.3 C (97.3 F) 07/10/2021 11:49 AM EST Respiratory Rate 18 09/11/2020 10:07 AM EDT Oxygen Saturation 98% 07/10/2021 11:49 AM EST Inhaled Oxygen Concentration - - Weight 92.3 kg (203 lb 6.4 oz) 07/10/2021 11:49 AM EST Height 171.3 cm (5' 7.44 ) 07/10/2021 11:[address] Body Mass Index 31.44 07/10/2021 11:49 AM EST Plan of Treatment Health Maintenance Due Date Last Done Comments LIPID PANEL 1979 HEPATITIS C SCREENING 12/30/1997 HIV ONE-TIME SCREENING (18-6 5 YEARS) 12/30/1997 PAP SMEAR 12/30/2000 MAMMOGRAM 2019 DEPRESSION SCREENING 07/07/2022 07/07/2021 COVID-19 VACCINE (2023-2 5 season) 2024 07/15/2020, 06/22/2020 COLOGUARD 12/30/2024 COLONOSCOPY 12/30/2024 COLORECTAL CANCER SCREENING 12/30/2024 FIT TEST 12/30/2024 FOBT 12/30/2024 SIGMOIDOSCOPY 12/30/2024 VIRTUAL COLONOSCOPY 12/30/2024 Adult Td,Tdap Booster 08/21/2025 08/22/2015 SMOKING STATUS SCREENING (On ce After 26 Yrs) Completed 07/10/2021 HEPATITIS A VACCINES Aged Out No long er eligible based on patient's age to complete this topic HIB VACCINES Aged Out No longer eligi ble based on patient's age to complete this topic MENINGOCOCCAL VACCINES (ACWY) Aged Out No longer eligible based on patient's age to complete this topic MENINGOCOCCAL VACCINES (B) Aged Out N o longer eligible based on patient's age to complete this topic PNEUMOCOCCAL VACCINES (0-49 years) Aged Out No longer eligible b ased on patient's age to complete this topic Medical Devices Not on file Insurance [employer] [place] [address] [address] [employer] [facility] BENEFITS ADMINISTRATORS Additional Source Comments The information contained in this document represents components of the legal health record. It is not the complete legal health record.[facility]
== END 2025-01-13 09:23 | disposition home or self-care (01) ==
LOC: HO.HWS 08:23
PROVIDERS: PCP Physician Assistant; Visit Provider Advanced Practice Midwife
DX: D21.9 Benign neoplasm of connective and other soft tissue, unspecified (principal); Z71.2 Person consulting for explanation of examination or test findings
CPT/HCPCS: 99213

== ENCOUNTER 2025-01-20 14:24 | Outpatient (AMB) | payer OTHER, SELFPAY ==
--- NOTE | 2025-01-20 14:40 | MHC.PC.OV ---
Vital Signs 01/20/25 14:41 Height 5 ft 8 in Weight 211 lb 8 oz BMI 32.2 BP 122/70 Blood Pressure Location Lt brachial Position Sitting Pulse 77 Pulse Source Pulse Oximeter Temp 96.8 F Temp Source Temporal Artery Scan Pulse Oximetry (%) 99 Oxygen Delivery Method Room Air Intake Visit Reasons: f/u HTN Chol Intake Note: Patient is here to follow up on HTN, Cholesterol. Process Development Chemist Required: No Manager Therapy: Not Required per policy Accompanied by: Self / Same As Patient Allergies No Known Allergies (No Known Allergies*) Allergy (Verified 01/20/25 15:10) Medication List - Last Reconciled 01/20/25 by Juan Daniel Means PA-C hydrochlorothiazide 12.5 mg PO DAILY 90 days levonorgestrel (Mirena) intrauterine Tobacco use date assessed: 01/20/25 Dental Screening Dental Screen Date: 06/29/24 HPI f/u HTN Chol HPI Details Patient is a 44-year-old female here today for aFollow-up visit Patient has a past medical history significant for hypertension. .. Hypertension: Blood pressure has been very well controlled with hydrochlorothiazide 12.5 mg daily. .. Cervical spine radiculitis: The patient experiences musculoskeletal pain, particularly in the right upper back, which she attributes to stress and posture related to her work. She has previously worked with a physical therapist, Lianet, who provided exercises that were beneficial. . Class 1 obesity: Have noted weight gain since last office visit. She has transitioned her control from oral cancer status some pills to Mirena device which may contribute to weight gain. She does understand her BMI is now above 30 will work on being more physically active and adapting to better eating habits to reduce her weight. .. Borderline high cholesterol: Patient has been making dietary changes. Patient has a history of borderline high cholesterol. We have rechecked her fasting lipid panel showing much improved total cholesterol and LDL. [facility] Medical History (Updated 01/20/25 @ 15:21 by Juan Daniel Means PA-C) Pituitary microadenoma IUD (intrauterine device) in place Fibroids Renal stones Anal fissure Surgical History History of section Family History Father Prostate cancer Connective tissue disease Mother Hypertension Diabetes Social History Housing: House Alcohol intake: current Alcohol intake frequency: holidays/special occasions only Patient Tobacco Use Status: Never used Tobacco e-Cigarette/Vaping Use: Never Used Second Hand Smoke Exposure: No service: No Current occupational status: employed 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 Current occupational exposures/hazards: Yes Sexual orientation: Straight/Heterosexual Gender identity: Female Cognitive needs: No Hearing needs: No Vision needs: Yes (Glasses) Female Reproductive History Menstrual Age of Menarche: 11 Questionnaire Thrive Questionnaire Date Thrive assessed: 06/29/24 I am a: Patient What is your living situation today?: I have a steady place to live Within the past 12 months, did the food you bought not last and you didn't have the money to get more?: Never true Within the past 12 months, did you worry whether your food would run out before you got money to buy more?: Never true Do you have trouble paying for medicines?: No Do you have trouble getting transportation to medical appointments?: No Do you have trouble paying your heating and electricity bill?: No Do you have trouble taking care of your child, family member or friend?: No Do you have trouble with day-to-day activities such as bathing, preparing meals, shopping, managing finances, etc.?: No Are you currently unemployed and looking for a job?: No Are you interested in more education?: No Please select the resources that you would like help with: None Currently or been in a relationship where the following occur: No concerns reported THRIVE Score: 0 GLORIA-7 AMB Questionnaire GLORIA-7 Date GLORIA - 7 assessed: 06/29/24 Source: Developed by Drs. Abdirashid Abbott, Agnes Mccrary, Richard Mera and colleagues, with an educational cornell from [employer]. Review of Systems Const Denies headache(s) Eyes Denies loss of vision ENT Denies vertigo, Denies dizziness, Denies headache(s) and Denies sore throat Card Denies chest pain, Denies leg edema and Denies lightheadedness Resp Denies cough, Denies hemoptysis and Denies wheezing GI Denies abdominal pain, Denies melena, Denies constipation, Denies diarrhea and Denies vomiting Denies urinary frequency, Denies dysuria and Denies urinary urgency Musc Denies arthralgias, Denies joint swelling, Denies numbness and Denies tingling Neuro Denies Abnormal speech present, Denies behavioral changes, Denies vertigo, Denies dizziness, Denies headache(s), Denies loss of vision, Denies memory loss, Denies numbness and Denies tingling Psych Denies anxiety, Denies behavioral changes, Denies depression, Denies memory loss and Denies panic attacks Noe/Lymph Denies easy bleeding and Denies easy bruising Aller/Immun Denies wheezing Physical exam (Primary Care) Vital Signs: Last Vital Signs Temp 96.8 F 01/20/25 14:41 Pulse 77 01/20/25 14:41 BP 122/70 01/20/25 14:41 Pulse Ox 99 01/20/25 14:41 Oxygen Delivery Method Room Air 01/20/25 14:41 BMI result Body Mass Index 32.2 BMI Assessment/Plan discussion: High BMI High, discussed plan: lifestyle, weight reduction, dietary and physical activity Tobacco/Smoking Status: Tobacco use Status Tobacco use date assessed 01/20/25 01/20/25 14:48 Patient Tobacco Use Status Never used Tobacco 01/20/25 14:48 e-Cigarette/Vaping Use Never Used 01/20/25 14:48 Thrive Assessment: Date of Thrive Assessment Date Thrive assessed 06/29/24 01/20/25 14:48 Currently or been in a relationship where the following occur: No concerns reported Const General: healthy appearing, no acute distress, alert and awake Nutritional Appearance: well nourished Orientation/consciousness: oriented to person, oriented to place and oriented to time [facility] Ears: TM's normal bilaterally General nose exam: Normal nasal mucous membranes and turbinates present Eyes Conjunctivae: conjunctivae normal Sclerae: sclerae normal Pupils: Equal, round and reactive pupils present Neck Neck: Yes no lymphadenopathy and Yes no JVD Thyroid: Thyroid normal Carotids: no bruits Resp Effort & Inspection: normal respiratory effort and not tachypneic Auscultation: no crackles, no rales, no rhonchi and no wheezes Cardio Rate: regular rate Rhythm: regular rhythm Heart sounds: no murmurs and normal S1 and S2 GI Palpation (GI): Soft to palpation, nontender, no hepatomegaly and no splenomegaly Auscultation: normal bowel sounds Skin General skin exam: no rashes or lesions noted and dry skin Neuro General: oriented to person, oriented to place and oriented to time Cranial nerves: Yes Equal, round and reactive pupils present Speech: No Abnormal speech present Gait exam (Neuro): Normal gait present Motor exam (neuro): no tremor noted Extrem Right upper extremity: full ROM Left upper extremity: full ROM Right lower extremity: full ROM; no edema Left lower extremity: full ROM; no edema Psych Mental Status: mental status grossly normal Speech and movement: Normal speech and movement present Affect: normal affect Attitude: cooperative Thought process: Normal thought process present Coding Level of Care Code Est Pt Level 4 (01238) Diagnoses Borderline high cholesterol E78.9 Primary hypertension I10 Hypertension type: primary hypertension Class 1 obesity E66.811 Upper back pain M54.9 Assessment & Plan Assessment & Plan (1) Borderline high cholesterol: Code(s): E78.9 - Disorder of lipoprotein metabolism, unspecified Category: Medical Plan: Patient has a history elevated total cholesterol. Most recent lipid panel showing excellent control over total cholesterol and LDL. LDL to be below 160 goal total cholesterol to be below 230 (2) HTN (hypertension): Code(s): I10 - Essential (primary) hypertension Category: Medical Qualifiers: Hypertension type: primary hypertension Qualified Code(s): I10 - Essential (primary) hypertension Plan: Patient's blood pressure acceptable today in office. Will continue her current dose of hydrochlorothiazide with goal blood pressure to remain below 140/90 (3) Class 1 obesity: Code(s): E66.811 - Obesity, class 1 Category: Medical Plan: Has noted weight gain over the last 6 months. She has had a Mirena placed as an alternative control method. Patient does understand her BMI is over 30 will work on being more physically active and adapting to better eating habits to reduce her weight. (4) Upper back pain: Code(s): M54.9 - Dorsalgia, unspecified Category: Medical Plan: Patient has a chronic bothersome upper back right shoulder pain. She has found a lot of relief with physical therapy would like to do another round of physical therapy. Orders: Orders Microalbumin, Random (w Creat) 01/20/25 I10 - Essential (primary) hypertension Complete Blood Count no Diff 01/20/25 I10 - Essential (primary) hypertension Comprehensive [place]. Panel Fast 01/20/25 I10 - Essential (primary) hypertension Lipid Panel 01/20/25 E78.9 - Disorder of lipoprotein metabolism, unspecified PT Evaluation and Treatment 01/20/25 M54.9 - Dorsalgia, unspecified
[2025-01-20 14:41] VITALS: BP 122/70; PULSE 77; TEMP 36; O2SAT 99; BMI 32.2
--- OUTSIDE RECORDS SUMMARY | 2025-01-20 15:07 | XMS_ITS | Clinical Summary ---
Author Organization [facility] Address [address] [address] Phone Care Team Providers Care Svp Digital Ad Sales Name Role Phone Unavailable Primary Care Provider Unavailabl e Allergies No known active allergies Medications norethindrone-et hinyl estradiol (NORTREL , 28,) 1-0.035 mg per tablet 1 tablet Orally Daily for Three Weeks, 1 Week off 04/03/2013 Active Active Problems Problem Noted Date Diagnosed Date Palpitations 07/11/2021 Assessment & Plan (07/11/2021 12:17 PM EST): New onset since covid-19 illness in March 2020. No symptoms during OV today. Recommended cardiology evaluation given the duration of these episodes. -referred to [facility] [place]. She will call them to schedule -recommended trying to get adequate sleep, avoid caffeine, stay well hydrated, she is going to try and work on setting some boundaries at work to decrease stress. Encounter for routine adult health examination without abnormal findings 04/29/2020 Assessment & Plan (07/11/2021 12:15 PM EST): Pap: NIL/hpv - in 2017. 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 Next due 2022 Mammogram: birads-1 in January 2020. Reports having repeat in 2020. Will request records. Labs: cbc/cmp/a1c/lipids ordered Immunizations: tetanus utd. Next due 2025. Already had flu shot and covid-19 vaccinations through work Follow up annually for CPE and as needed Assessment & Plan (04/29/2020 12:53 PM EST): Pap: NIL/hpv - in 2018. 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 Repeat [...] topic Medical Devices Not on file Insurance [employer] [address] [employer]MIN[employer]AT[employer]ORS [facility] BENEFITS ADMINISTRATORS Additional Source Comments The information contained in this document represents components of the legal health record. It is not the complete legal health record.[facility]
== END 2025-01-20 15:26 | disposition home or self-care (01) ==
LOC: HO.HMCH 14:25
PROVIDERS: PCP Physician Assistant; Visit Provider Physician Assistant
DX: E78.9 Disorder of lipoprotein metabolism, unspecified (principal); I10 Essential (primary) hypertension; E66.811 Obesity, class 1; Z68.32 Body mass index [BMI] 32.0-32.9, adult; M54.9 Dorsalgia, unspecified

== ENCOUNTER 2025-04-12 10:03 | Outpatient (REF) | payer OTHER, SELFPAY ==
--- NOTE | ~2025-04-12 | MM_ITS ---
EXAMINATION: MM SCREENING DIGITAL BREAST TOMOSYNTHESIS, BILATERAL CLINICAL INFORMATION: Screening. Asymptomatic. COMPARISON: Mammography: Comparison is made with available priors TECHNIQUE: Digital breast mammography with tomosynthesis is performed in both the craniocaudal and mediolateral oblique views along with computer-aided detection (CAD). FINDINGS: There are scattered areas of fibroglandular density. : Focal asymmetry retroareolar region upper central breast middle and posterior depth slightly more conspicuous compared with priors. No suspicious calcifications or other abnormal findings. Right: Focal asymmetry retroareolar region middle and posterior depth more conspicuous compared with priors. No suspicious calcifications or other abnormal findings. MM/MM tomosynthesis screening BI IMPRESSION: Additional imaging is recommended ASSESSMENT: BI-RADS Category 0: Incomplete - Need additional Imaging Evaluation RECOMMENDATION: 1. Additional views of the bilateral breasts. 2. Targeted ultrasound if warranted after review of the additional views. 3. Radiology department staff will contact the patient for additional imaging. Additional Imaging required Electronically signed by: Gissell Cartagena DO 04/13/2025 09:42 AM EDT
== END 2025-04-12 10:04 | disposition home or self-care (01) ==
LOC: HO.MAMMO 10:03
PROVIDERS: PCP Physician Assistant; Visit Provider Physician Assistant
DX: Z12.31 Encounter for screening mammogram for malignant neoplasm of breast (principal)
CPT/HCPCS: 77063; 77067

== ENCOUNTER → 2025-04-12 10:15 | Outpatient (BNV) | payer OTHER, SELFPAY | PROVIDERS: PCP Physician Assistant; Visit Provider Internal Medicine | DX: Z12.31 Encounter for screening mammogram for malignant neoplasm of breast (principal) | CPT/HCPCS: 77063; 77067 ==

== ENCOUNTER 2025-05-11 14:56 | Outpatient (RCR) | payer OTHER, SELFPAY ==
--- NOTE | 2025-03-26 13:52 | MHC.PT.EP ---
[facility] [place] Office [place] Office [place] Office [address] Joseline Coates [address] [phone] F: [phone] F: [phone] F: [phone] F: [phone] Physical Therapy Plan of Care Date of Evaluation: 03/24/25 Date of Surgery: N/A Diagnosis: upper back pain/shoulder pain (RL) Assessment: pt is a 44 y/o female presenting to physical therapy w/ referring diagnosis of upper back pain/shoulder pain. Impairments include pain, decreased range of motion, decreased strength, impaired functional mobility, impaired postural awareness, and altered ambulation mechanics. pt is a good candidate for skilled PT due to age, potential remediation of impairments, typical disease/condition progression and prognosis, comorbidities, and motivation. pt would benefit from skilled PT intervention to provide a tailored strengthening and stretching exercise program, functional training, gait training, postural re-training, neuromuscular re-education, modalities as needed for pain, equipment safety demonstration. Frequency and Duration: The patient will be seen 2x/wk for 4 wks Short Term Goals: pt will be I w/ HEP to promote self-management of condition. pt will demo proper sitting posture w/ lumbar roll to promote neutral spine w/ seated ADLs. Correction Goals: pt will report a statistically significant improvement in self-reported outcome measure to promote return to PLOF. pt will improve B cervical rotation AROM by 10* to promote ease in head turns for driving. Treatment Plan: Modalities to reduce pain, spasms and effusion. Manual therapy to restore motion and function. Therapeutic exercise to improve strength and flexibility. Neuromuscular re-education for posture and balance. Therapeutic activities to return to functional activities of daily living. Electronically signed by: Idania Frederick PT, DPT Please sign and return to therapist. Thank you for your referral.
--- NOTE | 2025-06-23 08:53 | MHC.PT.DC ---
[facility] [place] Office [place] Office [place] Office [address] Angie Coates [address] [phone] F: [phone] F: [phone] F: [phone] F: [phone] Physical Therapy Discharge Report Diagnosis: upper back pain/shoulder pain (RL) Date of Surgery: N/A Date of Evaluation: 03/24/25 Date of Discharge: 06/23/25 Treatments to Date: 12 Cancellations to Date: 1 No Shows to Date: 0 Discharge Status: Improved Function Independent with HEP Discharge Summary: pt overall has been reporting minimal symptoms. She feels at this time she is managing appropriately. I will keep her chart open for 30 days. If I do not hear from her in that time I will D/C the chart. Electronically signed by: Idania Frederick PT, DPT Please sign and return to therapist. Thank you for your referral.
== END 2025-06-23 08:53 | disposition home or self-care (01) ==
LOC: HO.PT 14:56
PROVIDERS: PCP Physician Assistant; Visit Provider Physician Assistant
DX: M54.6 Pain in thoracic spine (principal)
CPT/HCPCS: 97014; 97110; 97112; 97140; 97161; 97535

== ENCOUNTER 2025-06-09 13:53 | Outpatient (REF) | payer OTHER, SELFPAY ==
--- NOTE | ~2025-06-09 | US_ITS ---
EXAMINATION(S): 1. MM DIAGNOSTIC DIGITAL BREAST TOMOSYNTHESIS, BILATERAL 2. TARGETED ULTRASOUND OF THE BILATERAL BREASTS CLINICAL INFORMATION: Callback for bilateral breast findings: Right: Focal asymmetry retroareolar region middle and posterior depths more conspicuous compared with priors. Left: Focal asymmetry retroareolar region upper central breast middle and posterior depth slightly more conspicuous compared with priors. COMPARISON: Comparison made to multiple prior mammograms, most recent April 12, 2025, and most remote February 11, 2020. Prior right breast ultrasound on March 29, 2022 TECHNIQUE: Digital breast tomosynthesis is performed in full field ML 90 degrees along with computer-aided detection (CAD). Synthesized 2D images are generated from the tomosynthesis. Spot compression tomosynthesis were obtained. FINDINGS: BREAST COMPOSITION: There are scattered areas of fibroglandular density. RIGHT BREAST: Previously seen focal asymmetry centered at approximately 3 o'clock position at 5.5 cm from the nipple is pliable with spot compression. On today's images, the local parenchyma has similar appearance to multiple prior studies as far back as 2021. Targeted ultrasound of the right breast was performed at the location of the mammographic finding. The survey shows multiple cysts, for example 0.9 x 0.5 x 0.8 cm at 3 o'clock position at 5 cm from the nipple and 0.9 x 0.4 x 0.6 cm at 3 o'clock position at 5 cm from the nipple. These cysts are similar to the prior ultrasound study in March 2022. No suspicious sonographic findings seen during the survey. LEFT BREAST: Previously seen focal asymmetry seen third at approximately 9 o'clock position at 5.5 cm from the nipple is pliable with spot compression. On today's images, the local parenchyma has similar appearance to multiple prior studies as far back as 2021. Targeted ultrasound of the left breast was performed at the location of the mammographic finding. The survey shows multiple cysts, for example 0.7 x 0.6 x 0.6 cm at 9 o'clock position at 1 cm from the nipple and 0.6 x 0.5 x 0.6 cm at 9 o'clock position 2 cm from the nipple. No suspicious sonographic findings seen during the survey. US/US Breast BI Limited Mamm Only IMPRESSION: RIGHT BREAST: Pliable breast tissue containing multiple cysts centered at 3 o'clock position. Benign, no evidence of malignancy. Normal interval follow-up is recommended in 12 months. LEFT BREAST: Pliable breast tissue containing multiple cysts centered at 9 o'clock position. Benign, no evidence of malignancy. Normal interval follow-up is recommended in 12 months. ASSESSMENT: BI-RADS: Category 2: Benign RECOMMENDATION: 1 year F/U Results were provided to the patient at time of visit by the technologist. This patient's information was entered into a reminder system with a target due date for their next mammogram. Electronically signed by: Suraj Roche MD 06/09/2025 04:09 PM MOIZ
--- OUTSIDE RECORDS SUMMARY | 2025-06-09 18:26 | XMS_ITS ---
Author Organization Unknown ENCOUNTERS Encounter Performer Location Date Diagnosis Diagnosis Status Emergency [address] [address] [id number] [facility] Pre Admit [address] [address] [id number] [facility] [address] [address] [id number] [facility] Pre Admit [address] [address] [id number] Emergency Duane Ayala [address] [address] [id number] [facility] [address] [address] [id number] [facility] *Note: Encounters from your own facility or health system may be excluded. Allergies, Adverse Reactions, Alerts Allergen Type Severity Identification Date Medications Name Date Quantity Days Supplied GPI Number
--- OUTSIDE RECORDS SUMMARY | 2025-06-09 18:26 | XMS_ITS | Clinical Summary ---
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 -referred to [facility] [place] cardiology. She will call them to schedule -recommended trying to get adequate sleep, avoid caffeine, stay well hydrated, she is going to try and work on setting some boundaries at work to decrease stress. Encounter for routine adult health examination without abnormal findings 04/29/2020 Assessment & Plan (07/11/2021 12:15 PM EST): Pap: NIL/hpv - in 2017. 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 Next due 2022 Mammogram: birads-1 in January 2020. Reports having repeat in 2020. Will request records. Labs: cbc/cmp/a1c/lipids ordered Immunizations: tetanus utd. Next due 2025. Already had flu shot and covid-19 vaccinations through work Follow up annually for CPE and as needed Assessment & Plan (04/29/2020 12:53 PM EST): Pap: NIL/hpv - in 2018. 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 Repeat in 2020 Labs: recently had lipid panel showing elevated ldl at 153. Counseled on dietary changes for wt loss and lowering cholesterol Immunizations: tetanus utd. Next due 2025. Already had flu shot through work Follow up annually for CPE and as needed Immunizations Immunization Administration Dates Next Due INFLUENZA, SPLIT VIRUS, TRIV ALENT W/ PRESERVATIVE IM 05/03/2016 Influenza Quadrivalent Preservative Free IM 02/23,04/09/2019,04/09/2018 Tdap 08/22/2015 Family History Medical History Relation [...] HEPATITIS C SCREENING 12/30/1997 HIV ONE-TIME SCREENING (18-65 YEARS) 12/30/1997 PAP SMEAR 12/30/2000 MAMMOGRAM 2019 DEPRESSION SCREENING 07/07/2022 07/07/2021 COLOGUARD 12/30/2024 COLONOSCOPY 12/30/2024 COLORECTAL CANCER SCREENING 12/30/2024 FIT TEST 12/30/2024 FOBT 12/30/2024 SIGMOIDOSCOPY 12/30/2024 VIRTUAL COLONOSCOPY 12/30/2024 INFLUENZA VACCINE (#1) 2025 , 03/22/2020, 04/09/2019, Additional history exists COVID-19 VACCINE (2024- season) 2025 07/15/2020, 06/22/2020 Adult Td,Tdap Booster 08/21/2025 08/22/2015 SMOKING STATUS SCREENING (Once After 26 Yrs) Completed 07/10/2021 HEPATITIS A [...] (0-49 years) Aged Out No longer eligible based on patient's age to complete this topic Medical Devices Not on file Insurance [employer] [address] [employer] Member Subscriber Plan / Payer (Ef fective 2019-Present) Name:Sarah Brown Relation to Subscriber:Self Name:Sarah Brown Payer ID:[id number] (NAIC) Type:PPO Address: [place] [phone] [employer] Member Subscriber Plan / Payer (Ef fective 2019-Present) Name:Sarah Brown Relation to Subscriber:Self Name:Sarah Brown Payer ID:[id number] (NAIC) Type:PPO Address: [address] [employer] Member Subscriber Plan / Payer (Ef fective 2019-Present) Name:Sarah Brown Relation to Subscriber:Self Name:Sarah Brown Payer ID:[id number] (NAIC) Type:PPO Address: [place] [phone] [employer] Member Subscriber Plan / Payer (Ef fective 2019-Present) Name:Kevin Sarah Relation to Subscriber:Self Name:Sarah Brown Payer ID:[id number] (NAIC) Type:PPO Address: [place] [phone] [employer] Member Subscriber Plan / Payer (Ef fective 2019-Present) Name:Sarah Brown Relation to Subscriber:Self Name:Sarah Brown Payer ID:[id number] (NA) Type:PPO Address: [address] [employer] Member Subscriber Plan / Payer (Ef fective 2019-Present) Name:Sarah Brown Relation to Subscriber:Self Name:Sarah Brown Payer ID:[id number] (NA) Type:PPO Address: [place] [phone] [employer] Additional Source Comments The information contained in this document represents components of the legal health record. It is not the complete legal health record.[facility]
--- OUTSIDE RECORDS SUMMARY | 2025-06-09 18:26 | XMS_ITS | Data Portability ---
Author Organization [facility] Internal Medicine, Telehealth Patient Home Address [address] [place] [address] Assessment No assessment recorded. Plan of Treatment Reminders Order Date Submit Date Provider Last Modified By Organization Details Last Modified Time Details Appointments None recorded. Lab urinalysis , dipstick 2017 018 [facility] Internal Medicine, [address] [place] [address], [phone], 8 14:42:55 CMP, serum or plasma 2017 018 [facility], [address] [place] [address], [phone], 9 09:20:42 CBC 2017 018 [facility] Internal [facility], [address] [place] [address], [phone], 9 09:20:43 vitamin D, 25-hydroxy , total, serum 2017 018 [facility] Internal [facility], [address] [place] [address], [phone], 9 09:20:43 lipid panel, serum 2017 018 [facility], [address] [place] [address], [phone], 9 09:20:42 TSH + free T4, serum 2017 Zena moon [facility] Internal Medicine, [address] [facility], [address], [place], [address], 9 09:20:43 Referral None recorded. Procedures None recorded. Surgeries None recorded. Imaging None recorded. Medication Orders None recorded. Patient TargetsNo targets recorded. Patient Instructions Encounter Date Encounter Id Patient Instructions Last Modified By Organization Details Last Modified Time 05/23/2018 [id number] Continue healthy diet/exercise red Not available 05/23/2018 14:55:19 Reason for Referral None Reported. Results Created Date Observation Date Name Description Value Unit Range Abnormal Flag Note LastModifiedBy Organization Detail LastModifiedTime 05/23/20 18 05/23/2018 urina lysis , dipst ick Leukocytes Negati ve Not Available [facility] [address], [place], [address], 05/23/2018 14:15:07 05/23/20 18 05/23/2018 urina lysis , dipst ick Nitrite negati ve Not Available [facility] [address] [facility] [address], [place], [address], 05/23/2018 14:15:07 05/23/20 18 05/23/2018 urina lysis , dipst ick Urobilinogen .2 Not Available [facility] [address] [address] [facility] [address], [place], [address], 05/23/2018 14:15:07 05/23/20 18 05/23/2018 urina lysis , dipst ick Protein Negati ve Not Available [facility] [address] [facility] [address], [place], [address], 05/23/2018 14:15:07 05/23/20 18 05/23/2018 urina lysis , dipst ick pH 6.0 Not Available [facility] [address], [place], [address], 05/23/2018 14:15:07 05/23/20 18 05/23/2018 urina lysis , dipst ick Blood Non-He molyze d: Trace Not Available [facility] Internal Medicine [address], [place], [address], 05/23/2018 14:15:07 05/23/20 18 05/23/2018 urina lysis , dipst ick Specific [place] 1.020 Not Available [facility] Internal Medicine [address], [place], [address], 05/23/2018 14:15:07 05/23/20 18 05/23/2018 urina lysis , dipst ick Ketone Negati ve Not Available [facility] [address], [place], [address], 05/23/2018 14:15:07 05/23/20 18 05/23/2018 urina lysis , dipst ick Bilirubin Negati ve Not Available [facility] [address], [place], [address], 05/23/2018 14:15:07 05/23/20 18 05/23/2018 urina lysis , dipst ick Glucose Negati ve Not Available [facility] [address], [place], [address], 05/23/2018 14:15:07 05/23/20 18 05/23/2018 urina lysis , dipst ick Appearance Clear Not Available [facility] [address], [place], [address], 05/23/2018 14:15:07 05/23/20 18 05/23/2018 urina lysis , dipst ick Color Pale Yellow Not Available [facility] Medicine [address], [place], [address], 05/23/2018 14:15:07 02/12/20 20 02/11/2020 MAMMO mayelin, chang rodriguez No observ ation record ed. [email or web address] [facility] [address] [facility], [place], [address], 02/12/2020 10:15:51 Result Notes None recorded. Problems Name Problem SNOMED Code Status Onset Date Resolution Date Notes Provider Name and Address Organization Details Recorded Time Gastroesophage al reflux disease 692244605 [facility] 8 08:32:38 Problem Notes None recorded. Procedures Surgical History Date Name Laterality Status Provider Name and Address Organization Details Recorded Time 06/27/19 18 Date of Last Pap Smear completed Italia Walters NP, [address] [place] [address], [address], [facility] [place], [facility] Internal [facility] 05/23/2018 14:23:11 Caesarean Section completed Italia Walters NP, S [address] [place] [address], [address], [facility] [place], operated [facility] Internal Medicine 05/23/2018 14:22:15 Imaging Results None [...] (BMI) Body weight Heart rate Oxygen saturation Systolic And Diastolic Provider Name and Address Organization Details Last Updated DateTime 8 172.09 cm 29.2 kg/m2 07161.3 5 g 79 /min 98 % 140/70 mm[Hg] Milagro Coleman [facility] 8 14:16:10 Social History Question Answer Notes LastModified by Organizat ion Details LastModified Time Tobacco Smoking Status Never Smoker Not Available [employer] 04/26/2020 03:36:24 What Was The Date Of Your Most Recent Tobacco Screening? 05/23/2018 [id number] Information not available 04/26/2020 Sex: Unknown Functional Status None recorded. Mental Status None recorded. Family History Relationship Description Onset Age of this Age Resolved Age Notes LastModified by Organization Details LastModified Time Mother Type 2 diabetes mellitus htn red Not available 2017 14:21:53 Medical History Condition Response Coronary Artery Disease N Gout N Blood Diseases N Kidney Stones Y Hyperthyroidism N Blood Transfusion N Breast Cancer N Depression N COPD N Hypothyroidism N Lung Disease N Defects or Inherited [...] Congestive Heart Failure (CHF) N Eczema N Diverticulitis N Abuse/Domestic Violence N Asthma N Reflux/GERD N Hepatitis N Heart Disease N Pulmonary Embolism N Pre-Eclampsia N Hypertension N Chronic Ear Infections N Chicken Pox Y Autism Spectrum Disorder [...] Diagnosis SNOMED-CT Code Diagnosis ICD10 Code Diagnosis IMO Codes Diagnosis Note [id number] DO Patricio [facility] [address] [facility],[place] [address] 05/23/2018 14:03:17 05/26/2018 15:23:41 Adult health examination [id number] Z00.00 Health Concerns Section Related Observation LastModified by Organization Detai ls LastModified Time None Recorded Concern Status LastModified by Organization Details LastModified Time None Recorded Advance Directives Directive None Recorded Payers Insurance Date Sequence Insurance Name Policy Number Policy Woo Covered Member ID Woo Member ID Guarantor Name 05/26/2018 1 R [id number] Sarah Brown [id number] Sarah Brown Notes Date Note Type Note Provider Name a nd Address Organization Details Recorded Time 8 text/html Annual WellnessReported by PatientSocial/Behavio ral HistoryFor diet and nutrition, patient reportshigh caloric intakebut reportshealthy diet. For fracture risk, patient reportsno history of fractures,no recent explained fracture,no sudden unexplained fractures, andno previous musculoskeletal injuries. 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 For additional lifestyle factors, patient reportsno tobacco useanddrinks alcohol (mild-moderate).Menta l Status:For depression risk, patient reportsnever feels sad, empty, or tearful,no loss of interest in activities,no significant changes in weight,no sleep disturbances or insomnia,no agitation,no loss of energy,no feelings of worthlessness or guilt,no thoughts of suicide,no history of depression, andno history of mood disorders.Functional AbilityFor hearing, patient reportsno loss of hearing. For vision, patient reportsno vision problems(wears glasses).Up to date eye and dental care Italia Walters NP, [address] [facility], [place], [address], [facility], [place], operated [facility] 05/23/2018 14:55:44 OBGyn Episode No OBEpisode recorded.
== END 2025-06-09 13:54 | disposition home or self-care (01) ==
LOC: HO.MAMMO 13:53
PROVIDERS: PCP Physician Assistant; Visit Provider Physician Assistant
DX: N64.89 Other specified disorders of breast (principal)
CPT/HCPCS: 76642; 77062; 77066

== ENCOUNTER → 2025-06-09 14:00 | Outpatient (BNV) | payer OTHER, SELFPAY | PROVIDERS: PCP Physician Assistant; Visit Provider Radiology Body Imaging | DX: N60.01 Solitary cyst of right breast (principal); N60.02 Solitary cyst of left breast | CPT/HCPCS: 76642; 77062; 77066 ==